=== PATIENT | male | born 1935 | race Caucasian/White ===

== ENCOUNTER 2018-07-08 14:27 | Inpatient (IN) | payer OTHER ==
[~2018-07-08] VITALS: Ht 170.2 cm; Wt 87.1 kg
[2018-07-08 15:13] LABS: ABSOLUTE BASOPHIL COUNT 0.1 /CUMM (0.0-0.2); ABSOLUTE EOSINOPHIL COUNT 0.1 /CUMM (0.0-0.7); ABSOLUTE GRANULOCYTE CT 7.9 /CUMM (1.4-6.5); ABSOLUTE LYMPH COUNT 1.1 /CUMM (1.2-3.4); ABSOLUTE MONOCYTE COUNT 0.5 /CUMM (0.10-0.60); BASOPHIL % 0.7 % (0.0-2.0); EOSINOPHIL % 1.3 % (0-5); GRANULOCYTE % 82.2 % (42.2-75.2); HEMATOCRIT 46.2 % (42-52); MEAN CORPUSCULAR HGB 32.8 PG (27.0-31.0); MEAN CORPUSCULAR HGB CONC 33.3 G/DL (33.0-37.0); MEAN CORPUSCULAR VOLUME 98.2 FL (80.0-94.0); PLATELET COUNT 261 /CUMM (130-400); RBC DISTRIBUTION WIDTH 15.3 % (11.5-14.5); WHITE BLOOD CELL COUNT 9.6 /CUMM (4.8-10.8)
[2018-07-08 15:26] LABS: PT 11.4 SEC (9.4-12.5)
--- NOTE | 2018-07-08 16:00 | RADIOLOGY REPORT ---
EXAMINATION: XR PORTABLE CHEST CLINICAL INFORMATION: Abdominal pain. COMPARISON: CT chest 12/15/2011. TECHNIQUE: Portable frontal view of the chest was obtained. FINDINGS: The lungs are well-expanded and clear of acute process. 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 Pulmonary vascularity is normal. No gross bony abnormality seen IMPRESSION: No acute pulmonary process seen. Mild cardiomegaly.
--- NOTE | 2018-07-08 16:08 | ED GENERAL ADULT ---
History of Present Illness General Chief Complaint: Abdominal Pain/Flank Pain Stated Complaint: SENT BY URGENT CARE FOR EVAL OF ABD PAIN Source: patient Exam Limitations: no limitations Vital Signs & Intake/Output Vital Signs & Intake/Output Vital Signs Date Time Temp Pulse Resp B/P B/P Pulse O2 O2 Flow FiO2 Mean Ox Delivery Rate 07/08 194 84 16 110/50 94 Room Air 07/08 1643 97.5 88 18 129/65 92 07/08 1507 Room Air Room Air 07/08 1445 98.4 95 18 102/60 93 Room Air Allergies Coded Allergies: NO KNOWN ALLERGIES (07/08/18) Triage Note: RECEIVED 82 YO MALE SENT FROM URGENT CARE FOR C/O NAUSEA, ABDOMINAL BLOATING AND EPIGASTRIC PAIN. XRAY DONE, SENT FOR BLOOD TESTS AND CT SCAN. NO C/O CP OR SOB. Triage Nurses Notes Reviewed? yes HPI: 82 year old male with history of diabetes mellitus and gout, presenting to the ED with abdominal pain approximately 1 week in duration. The abdominal pain is mid-epigastric and has been worsening, associated with a feeling of bloating, as well as nausea and dry-heaving that began this morning. Patient denied headache, cramping, diarrhea or other changes in bowel movements, but reported difficulty urinating. The patient went to urgent care, but as they could not perform an abdominal CT scan, he was sent to the ED. In the ED he was noted to be hyperkalemic to 5.9 with associated EKG changes and found to be in acute renal failure. (Win WELCH,Tejas) Reconcile Medications Allopurinol 300 MG TABLET 1 TAB PO DAILY URIC ACID (Reported) Aspirin (Ecotrin*) 81 MG TABLET.DR 1 TAB PO DAILY HEART/BLOOD (Reported) Dapagliflozin Propanediol (Farxiga) 5 MG TABLET 1 TAB PO DAILY DM (Reported) Ezetimibe/Simvastatin (Vytorin 10-20 MG Tablet) 10 MG-20 MG TABLET 1 TAB PO DAILY HEART/BP (Reported) Flecainide Acetate 100 MG TABLET 1 TAB PO BID HEART (Reported) Lisinopril 20 MG TABLET 1 TAB PO DAILY BP (Reported) Metoprolol Succinate 50 MG TAB.ER.24H 1 TAB PO DAILY HEART/BP (Reported) Sitagliptin Phos/Metformin HCl (Janumet 50-1,000 MG Tablet) 50 MG-1,000 MG TABLET 1 TAB PO BID DM (Reported) Onset: Abrupt Duration: day(s): Timing: recent history (Ranjit DELCID,Nehemias Eaton) Past History Travel History Traveled to [place] past 21 day No Medical History Any Pertinent Medical History? see below for history Neurological: NONE EENT: NONE Cardiovascular: hypertension, hyperlipidemia Respiratory: NONE Gastrointestinal: NONE Hepatic: NONE Renal: NONE Musculoskeletal: NONE Psychiatric: NONE Endocrine: diabetes Blood Disorders: NONE Cancer(s): NONE Surgical History Surgical History: none Psychosocial History Who do you live with Other (see notes) Services at Home None What is your primary language Welsh Tobacco Use: Never used Family History Hx Contributory? No (Win WELCH,Tejas) Review of Systems Review of Systems Constitutional: Denies: chills, diaphoresis, fever. Respiratory: Denies: cough, orthopnea, short of breath, sputum production. Cardiovascular: Denies: chest pain, palpitations, peripheral edema. GI: Reports: abdominal pain, bloating, distention, nausea. Denies: diarrhea, bowel incontinence, vomiting (Dry-heaving). Musculoskeletal: Denies: joint pain, joint swelling, muscle pain, muscle stiffness. Neurological/Psychological: Denies: headache, numbness, paresthesia. (Win WELCH,Tejas) Physical Exam Physical Exam General Appearance: well developed/nourished, no apparent distress, alert, awake Respiratory: normal breath sounds, chest non-tender, no respiratory distress Cardiovascular: regular rate/rhythm Gastrointestinal: normal bowel sounds, soft, distention, tenderness Extremities: normal inspection, normal range of motion, no edema Neurologic/Psych: awake, alert, oriented x 3 Core Measures ACS in differential dx? No CVA/TIA Diagnosis: No Sepsis Present: No Sepsis Focused Exam Completed? No (Tejas Walden MD) Progress Differential Diagnoses I considered the following diagnoses in my evaluation of the patient: [acute renal failure, decompensated alcoholic cirrhosis, pancreatitis, acute cholecystitis] Plan of Care: Orders Procedure Date/time Status Nothing by Mouth 07/09 B Active MAGNESIUM 07/09 06 Active CBC WITHOUT DIFFERENTIAL 07/09 06 Active BASIC ELECTROLYTES PLUS BUN&CR 07/09 06 Active FingerStick- Glucose 07/08 1803 Active US-LIMITED ABDOMEN 07/08 1748 Active Pathway - chart 07/08 174 Active House Staff 07/08 1746 Active Patient Data 07/08 174 Active Code Status 07/08 1746 Active LACTIC ACID 07/08 1742 Complete URINE LYTES, SPOT 07/08 1741 Active Patient Data 07/08 1732 Active Misc Message 07/08 1727 Active ED Holding Orders 07/08 1727 Active Admit to inpatient 07/08 1727 Active Vital Signs 07/08 1727 Active Code Status 07/08 1727 Complete BASIC ELECTROLYTES PLUS BUN&CR 07/08 1700 Complete EKG 07/08 1700 Active Add-on Test (ER Only) 07/08 1655 Active URINALYSIS 07/08 1629 Active Puente, Insertion/Removal/Asses 07/08 1545 Active CULTURE,URINE 07/08 154 Active Add-on Test (ER Only) 07/08 1511 Active Intake & Output 07/08 1507 Active PROTHROMBIN TIME 07/08 1505 Complete MAGNESIUM 07/08 1505 Complete AMYLASE 07/08 1505 Complete TROPONIN LEVEL 07/08 1442 Complete LIPASE 07/08 1442 Complete LACTIC ACID 07/08 1442 Complete COMPREHENSIVE METABOLIC PANEL 07/08 1442 Complete CBC WITHOUT DIFFERENTIAL 07/08 1442 Complete EKG 07/08 1442 Active VTE Mechanical Prophylaxis 07/08 UNK Active Telemetry/Patching Machine Operator 07/08 UNK Active Current Medications Sig/Renu Start time Last Medication Dose Stop Time Status Admin Sodium Bicarbonate 650 MG BID 07/08 2100 AC (Sodium Bicarb 325MG Tab) Heparin Sodium 5,000 UNIT Q8 07/08 1746 AC 07/08 (Porcine) 1906 Ondansetron HCl 0 .STK-MED ONE 07/08 1455 CAN (Zofran) Laboratory Tests 07/08/181929: Urine Color Pending, Urine Clarity Pending, Urine pH Pending, Ur Specific [place] Pending, Urine Protein Pending, Urine Ketones Pending, Urine Nitrite Pending, Urine Bilirubin Pending, Urine Urobilinogen Pending, Ur Leukocyte Esterase Pending, Ur Microscopic SEDIMENT EXAMINED, Urine RBC Pending, Urine Hemoglobin Pending, Urine Glucose Pending 07/08/18 1930: Ur Random Creatinine Pending, Ur Random Sodium Pending, Ur Random Potassium Pending, Fraction Sodium Excret Pending 07/08/18 175: Sodium Cancelled, Potassium Cancelled, Chloride Cancelled, Carbon Dioxide Cancelled, Anion Gap Cancelled, BUN Cancelled, Creatinine Cancelled, BUN/ Creatinine Ratio Cancelled 07/08/18 1758: Lactic Acid 2.5 H 07/08/18 1758: Anion Gap 13, Estimated GFR 14 L, BUN/Creatinine Ratio 15.9 07/08/18 1505: Anion Gap 17 H, Estimated GFR 12 L, BUN/Creatinine Ratio 14.3, Glucose 190 H, Lactic Acid 2.7 H, Calcium 10.2, Magnesium 2.2, Total Bilirubin 0.6, AST 26, ALT 20 L, Alkaline Phosphatase 87, Troponin I < 0.01, Total Protein 8.9 H, Albumin 5.3 H, Globulin 3.6, Albumin/Globulin Ratio 1.5, Amylase 109, Lipase 385 H, PT 11.4, INR 1.05, CBC w Diff NO MAN DIFF REQ, RBC 4.70, MCV 98.2 H, MCH 32.8 H, MCHC 33.3, RDW 15.3 H, MPV 8.0, Gran % 82.2 H, Lymphocytes % 11.0 L, Monocytes % 4.8, Eosinophils % 1.3, Basophils % 0.7, Absolute Granulocytes 7.9 H, Absolute Lymphocytes 1.1 L, Absolute Monocytes 0.5, Absolute Eosinophils 0.1, Absolute Basophils 0.1 Microbiology 07/08 1930 URINE ROUT: Urine Culture - RECD Diagnostic Imaging: Viewed by Me: Radiology Read. Discussed w/RAD: Radiology Read. Initial ED EKG: Peak T waves progressing to sine wave pattern (Win WELCH,Tejas) Differential Diagnoses I considered the following diagnoses in my evaluation of the patient: (Nehemias Church DO) Departure Departure Disposition: STILL A PATIENT Condition: Stable Clinical Impression Primary Impression: Acute renal failure (ARF) Qualifiers: Acute renal failure type: unspecified Qualified Code: N17.9 - Acute kidney failure, unspecified Secondary Impressions: Acute electrocardiogram changes, Hyperkalemia Referrals: Fredy WELCH,Kyree Decker (PCP/Family) Departure Forms: Customer Survey General Discharge Information Admission Note Spoke With: Roscoe Lara MD Documentation of Exam: Documentation of any treatments & extenuating circumstances including Concerns Regarding Discharge (functional status, medication knowledge or non-compliance, living conditions, etc.) that warrant an admission rather than observation: the patient was noted to have acute EKG changes upon arrival to the ED likely secondary to hyperkalemia, due to acute renal failure. I believe he will require a multiple-day hospital stay in order to appropriately correct his hyperkalemia, as well as address his underlying acute renal failure, and most likely will need cardiology and nephrology consultations as an inpatient. Due to the underlying renal failure, the patient would likely become hyperkalemic again if not treated as an inpatient, and risk worsening clinical condition and serious cardiac events including . (Win WELCH,Tejas) Admission Note Documentation of Exam: Documentation of any treatments & extenuating circumstances including Concerns Regarding Discharge (functional status, medication knowledge or non-compliance, living conditions, etc.) that warrant an admission rather than observation: Resident Co-Sign Statement Statement: ED Attending supervision documentation- [X] I saw and evaluated the patient. I have also reviewed all the pertinent lab results and diagnostic results. I agree with the findings and the plan of care as documented in the Resident's documentation. [] I have reviewed the ED Record and agree with the Resident's documentation. [] Additions or exceptions (if any) to the Resident's note and plan are summarized below: [] I saw and personally evaluated the patient and I agree with the resident's evaluation. The patient complained of abdominal pain he was in acute renal failure. He was hyperkalemic with EKG changes he was admitted to the telemetry unit for further care, his abdomen is soft was soft and nontender on my exam., (Ranjit DELCID,Nehemias Eaton) Critical Care Note Critical Care Note Critical Care Time: 30-74 min (Win WELCH,Tejas)
--- NOTE | 2018-07-08 17:38 | CT SCAN REPORT ---
EXAMINATION: CT ABD PELVIS W/O IV CONTRAS CLINICAL INFORMATION: Acute renal failure abdominal pain distention COMPARISON: None TECHNIQUE: Multidetector volumetric imaging was performed from the superior aspect of the liver through the pubic symphysis 100 mL of Omnipaque 300 injected Sagittal and coronal reformatted images were obtained on the technologist's workstation. DLP: 802 mGy-cm FINDINGS: LOWER THORAX: Included lung bases are clear. HEPATOBILIARY: There is mild intrahepatic biliary dilatation. There is a probably dilatation of the pancreatic duct. Although stone cannot be directly visualize by CT, there is a concern for possible stone or obstruction of the CBD. GALLBLADDER: Gallbladder is very distended. SPLEEN: Spleen is normal in size. PANCREAS: No focal mass or ductal dilatation. STOMACH AND GASTROINTESTINAL TRACT: Stomach is grossly unremarkable. There is diverticulosis of the sigmoid colon without evidence of acute diverticulitis. No CT evidence of appendicitis. ADRENALS: No adrenal nodules. KIDNEYS/URETERS: There is a 3.8 cm simple cyst middle pole LEFT kidney. There is 1.9 cm simple cyst lower pole LEFT kidney. There is 1.6 cm cyst middle pole LEFT kidney. There is no hydronephrosis. There is nonspecific mild bilateral perinephric fat stranding. There is 1.6 cm cyst middle pole RIGHT kidney. URINARY BLADDER: Partially decompressed. PELVIC VISCERA: Unremarkable PERITONEUM: No free air or fluid. LYMPH NODES: No lymphadenopathy. VASCULAR:Abdominal aorta normal in size, no aneurysm found. BONES, ABDOMINAL WALL AND SOFT TISSUES: Left inguinal hernia containing fats. Small anterior abdominal wall hernia containing fat. Mild grade 1 anterior listhesis of L5 on S1 and posterior listhesis of L3 on L4. IMPRESSION: 1. Intrauterine extrahepatic biliary dilatation, distended gallbladder, although stones cannot be seen by CT scan, cannot rule out stones or obstructing mass within the CBD or head of the pancreas. Further investigation utilizing ultrasound and/or MRI MRCP is recommended. 2. Diverticulosis without evidence of diverticulitis. 3. Bilateral renal cysts. Nonspecific mild bilateral perinephric fat stranding's. Other noncritical findings as above.
--- NOTE | 2018-07-08 17:45 | History & Physical ---
Vikram WELCH,Nicol 07/08/18 4577: General Information and HPI MD Statement: I have seen and personally examined ОЛЬГАARSENIO Meyer and documented this H&P. The patient is a 82 year old M who presented with a patient stated chief complaint of [hyperkalemia, EKG changes]. Source of Information: patient, family, old records Exam Limitations: no limitations History of Present Illness: Patient is an 82-year-old male presented with a chief complaints of abdominal pain, sent by the urgent care for evaluation. History is taken from the patient. According to him since last 3 or 4 weeks he is having lower abdominal pain and difficulty in urinating. He takes time and have to strain for urination. He denies for any change in the color or smell of the urine. He was also having abdominal pain located in periumbilical area, intermittent in nature does sometimes radiate to the back. Denies for any fever , chills, diarrhea, constipation, trauma, chest pain, difficulty in the breathing. He also started having nausea since last 3-4 days but denies vomiting. His appetite has been decreased. He did not tried any medication. Because of the nausea he thought that he needed to talk to somebody. He went to urgent care for evaluation. Abdomen x-ray was done which was negative so he was told to come to the [facility] ED for further evaluation and management. Of note he had a blood workup in April which was normal. he had episodes of fall, due to imbalance but didnt injured himself. He is also following Dr. Flores, regularly but he donot know why. He already had echocardiogram and according to him it was normal. He was also complaining of pain in the left side of the neck since couple of months. Past medical history- History of SVT 2007, converted to normal sinus rhythm of diagnosing following Dr. Jaime Right bundle branch block Hypertension Hyperlipidemia Type 2 diabetes GERD History of polyps History of diverticulosis History of GI bleed Allergies-denies for any allergies Family history-his mother had gallbladder cancer Surgery-noncontributory Allergies/Medications Allergies: Coded Allergies: NO KNOWN ALLERGIES (07/08/18) Home Med list Allopurinol 300 MG TABLET 1 TAB PO DAILY URIC ACID (Reported) Aspirin (Ecotrin*) 81 MG TABLET. 1 TAB PO DAILY HEART/BLOOD (Reported) Dapagliflozin Propanediol (Farxiga) 5 MG TABLET 1 TAB PO DAILY DM (Reported) Ezetimibe/Simvastatin (Vytorin 10-20 MG Tablet) 10 MG-20 MG TABLET 1 TAB PO DAILY HEART/BP (Reported) Flecainide Acetate 100 MG TABLET 1 TAB PO BID HEART (Reported) Lisinopril 20 MG TABLET 1 TAB PO DAILY BP (Reported) Metoprolol Succinate 50 MG TAB.ER.24H 1 TAB PO DAILY HEART/BP (Reported) Sitagliptin Phos/Metformin HCl (Janumet 50-1,000 MG Tablet) 50 MG-1,000 MG TABLET 1 TAB PO BID DM (Reported) Past History Travel History Traveled to [place] past 21 day No Medical History Neurological: NONE EENT: NONE Cardiovascular: hypertension, hyperlipidemia Respiratory: NONE Gastrointestinal: NONE Hepatic: NONE Renal: NONE Musculoskeletal: NONE Psychiatric: NONE Endocrine: diabetes Blood Disorders: NONE Cancer(s): NONE Surgical History Surgical History: none Past Family/Social History Psychosocial History Services at Home: None Review of Systems Review of Systems Constitutional: Reports: weakness. GI: Reports: abdominal pain, nausea. Genitourinary: Reports: hesitation. Exam & Diagnostic Data Last 24 Hrs of Vital Signs/I&O Vital Signs Date Time Temp Pulse Resp B/P B/P Pulse O2 O2 Flow FiO2 Mean Ox Delivery Rate 07/08 1643 97.5 88 18 129/65 92 07/08 1507 Room Air Room Air 07/08 1445 98.4 95 18 102/60 93 Room Air Intake & Output 07/08 1600 07/08 0800 07/08 0000 Intake Total 0 Output Total Balance 0 Intake, Oral 0 Patient 83.461 kg Weight Weight Estimated Measurement Method Physical Exam General Appearance Alert, Oriented X3, Cooperative, No Acute Distress Skin No Rashes, No Breakdown, No Significant Lesion Neck No JVD Cardiovascular Normal S1, Normal S2 Lungs Clear to Auscultation, Normal Air Movement Abdomen Soft, distended, tenderness in right upper quadrant, middle of abdoman, gall bladder is palpable, also have left upper quadrate mass, Neurological Normal Speech Extremities No Clubbing, No Cyanosis, No Edema Vascular Normal Pulses, Pulses Symmetrical Last 24 Hrs of Labs/Jakob: Laboratory Tests 07/08/18 1505: Anion Gap 17 H, Estimated GFR 12 L, BUN/Creatinine Ratio 14.3, Glucose 190 H, Lactic Acid 2.7 H, Calcium 10.2, Magnesium 2.2, Total Bilirubin 0.6, AST 26, ALT 20 L, Alkaline Phosphatase 87, Troponin I < 0.01, Total Protein 8.9 H, Albumin 5.3 H, Globulin 3.6, Albumin/Globulin Ratio 1.5, Amylase 109, Lipase 385 H, PT 11.4, INR 1.05, CBC w Diff NO MAN DIFF REQ, RBC 4.70, MCV 98.2 H, MCH 32.8 H, MCHC 33.3, RDW 15.3 H, MPV 8.0, Gran % 82.2 H, Lymphocytes % 11.0 L, Monocytes % 4.8, Eosinophils % 1.3, Basophils % 0.7, Absolute Granulocytes 7.9 H, Absolute Lymphocytes 1.1 L, Absolute Monocytes 0.5, Absolute Eosinophils 0.1, Absolute Basophils 0.1 Microbiology 07/08 1545 URINE ROUT: Urine Culture - ORD Diagnostic Data EKG Results Junctional rhythum, old IWMI CXR Results No acute pulmonary process seen. Mild cardiomegaly. Assessment/Plan Assessment: Patient is an 82-year-old male presented with a chief complaints of abdominal pain, sent by the urgent care for evaluation. Vital signs at the time of admission-temperature 98.4, pulse 95, respiratory 18, blood pressure 102/60, SPO2 93% on room air. Blood workup showed-hemoglobin 15.4, hematocrit 46.2, MCV 98.2, platelet count 261, granulocyte 82.2, absolute granulocyte 7.9, serum sodium 138, potassium 5.9 , carbon dioxide 12, anion gap 17, BUN 66, creatinine 4.6, GFR 12, glucose 190, lactic acid 2.7, calcium 10.2, magnesium 2.2, AST 26, ALT 20, alkaline phosphatase 87, troponin less than 0.01, albumin 5.3, globulin 3.6, lipase 385, PT/INR-11.4/1.04 Chest x-ray-no acute pulmonary process, mild cardiomegaly. CT abdomen pelvis- 1. Intrauterine extrahepatic biliary dilatation, distended gallbladder, although stones cannot be seen by CT scan, cannot rule out stones or obstructing mass within the CBD or head of the pancreas. 2. Diverticulosis without evidence of diverticulitis. 3. Bilateral renal cysts. Nonspecific mild bilateral perinephric fat stranding' s. Assessment and plan- Hyperkalemia,High anion gap metabolic acidosis secondary to EVELYN on CKD ; with BPH; diabetic nephropathy - * Started patient on tablet soda bicarb 650 mg twice daily * IV fluid D5 half normal saline at 50 cc/h * Regular monitoring of BEP * Low potassium diet * Coronel catheterization * Strick intake output charting * Daily weight measurement * We need to get the records from the primary care provider Dr. Marrufo to know the baseline creatinine. * Follow nephrology recommendation * Follow urology recommendation Idioventricular rhythm on EKG possibly flecainide toxicity -because of EVELYN * Discussed with Dr. Plata she thinks that we should stop the flecainide for now. * We will continue tablet metoprolol 50 mg daily * Follow cardiology recommendation * EKG tomorrow morning * His primary advanced manufacturing technician is Dr. Flores please place a consult on Tuesday Intra-and extrahepatic biliary dilatation-gallbladder stone has to be ruled out- He has palpable gallbladder, with the family history of gallbladder cancer in his mother, there was a palpable mass and left supraclavicular area which was hard and fixed. * Advised right upper quadrant ultrasound and if needed then MRCP * Follow GI recommendation * Injection metoclopramide if needed for nausea * Injection pantoprazole 40 mg IV OD Type 2 diabetes - * Blood sugar charting every 6 hourly * NovoLog according to the sliding scale History of fall, unstablility -on examination there is no neurological deficit * We will check vitamin B12 level Chronic medical condition-hypertension, hyperlipidemia, gout * We will hold the lisinopril for now and continue metoprolol. * We will hold allopurinol for now until kidney function improved CODE STATUS-DNR/DNI Diet-consistent carbohydrate to diet, keep n.p.o. from tomorrow morning for right upper quadrant ultrasound and if needed then MRCP. DVT prophylaxis-ALPs/heparin Please get the records from the PCP Dr. MARRUFO and have baseline creatinine. As Ranked By This Provider Problem List: 1. Hyperkalemia 2. Acute renal failure (ARF) Qualifiers Acute renal failure type: unspecified Qualified Code: N17.9 - Acute kidney failure, unspecified 3. Acute electrocardiogram changes 4. Metabolic acidosis 5. Type 2 diabetes mellitus Core Measures/Misc (07/31) Acute Coronary Syndrome ACS Diagnosis: No Congestive Heart Failure Congestive Heart Failure Diagnosis No Cerebrovascular Accident CVA/TIA Diagnosis: No VTE (View Protocol) VTE Risk Factors Age>40 No Mechanical VTE Prophylaxis d/t N/A MechProphylax Ordered No VTE Pharm Prophylaxis d/t NA PharmProphylax ordered Sepsis (View protocol) Sepsis Present: No If YES complete Sepsis Event Note If YES complete Sepsis Event Note Roscoe Lara MD 07/09/18 0639: Core Measures/Misc (07/31) Sepsis (View protocol) If YES complete Sepsis Event Note If YES complete Sepsis Event Note Attending MD Review Statement Attending Statement Attending MD Statement: examined this patient, discuss w/resident/PA/AIRCRAFT ENGINE SPECIALIST, agreed w/resident/PA/AIRCRAFT ENGINE SPECIALIST, discussed with family, reviewed EMR data (avail), discussed with nursing, reviewed images, amended to note Attending Assessment/Plan: The patient is an 82 yo male with h/o HTN, PSVT, HL, DM2, GERD, h/o GI bleed, CKD 3 (per Dr. Daniel OP chart) who was brought to ED on the day of admission after a fall at home. The patient stated he lost his balance and fell (no syncope, chest pain, palpitations, etc.). He had complained of mid epigastric abdominal pain x 1 week prior to admission with nausea and dry heaves that was getting worse. In the ED was noted to have renal failure (Cr 4.1) and hyperkalemia (K 5.9) and have a junctional rhythm on EKG. His prior Cr here was normal, however Dr. Daniel OP chart (newly created in [place]) indicates CKD 3 as a problem (he has not been seen since conversion to [facility] and no prior OP Cr in our system- suspect may be at [facility]). CT of abdomen showed intrahepatic and extrahepatic biliary duct dilatation, probable dilatation of the pancreatic duct, and distended GB (no stones) and MRCP was recommended. His Lipase was 385 with normal LFTs. He is followed by Dr. Carroll as OP for cardiology. Physical Exam: VS: T 97.5, P 88, R 18, BP 102/60-129/65, PO 92-93% RA HEENT: eyes- PERRLA, EOMI que- dry mucosa Neck: no JVD/bruits; + left supraclavicular node Chest: sl diminished breath sounds at bases, clear Cor: RRR nl S1, S2 w/o murm Abd: BS+, soft, + RUQ and epigastric tenderness w/o guarding/rebound Ext: no significant edema, pulses 2+ Neuro: alert, non-focal exam Labs/Tests- as above Impression/Plan: #Hyperkalemia- due to EVELYN/CKD. Plan: Glucose/insulin given in ED. Admit to telemetry and monitor. Follow BEP closely. #EVELYN/CKD- last prior Cr not known, however Dr. Daniel chart lists CKD3 as diagnosis (will need to check [facility]). His po intake has been poor with nausea/dry heaves, etc. Coronel was placed in ED with large amount of clear urine. Suspect BPH/urinary retention (obstructive uropathy) as partial cause. Metabolic acidosis noted. Plan: Nephrology/Urology consults. Renal diet. IV 1/2 NS and bicarb tabs. Follow I/O's and BEP closely. Obtain prior OP labs (?[facility]). Maintain coronel at present for follow I/O's. #Idioventricular Rhythm- noted on EKG. H/O PSVT per OP chart. Previously seen by Dr. Carroll. Plan: Monitor on telemetry. Cardiology consult. Continue Metoprolol. #Abdominal Pain- dilated pancreatic/intrahepatic/extrahepatic biliary system. Lipase mildly elevated with normal LFT's. MRCP recommended, however MRI not available until 07/10. FH of GB malignancy. Also with nausea/dry heaves. Plan: As cannot obtain MRCP will check abdominal US. GI consult. Follow-up LFT's/abdominal exam. Metoclopramide for nausea/Pantoprazole IV. #DM2- sugars as above. Plan: Follow glucoscans and sliding scale insulin. #S/P Fall- ?mechanical fall. Most likely secondary to volume depletion/etc. Plan: Will monitor on telemetry. PT/OT consults once stable. Agree with check B12/Vit D. #HL- on Atorvastatin. Plan: Hold while having nausea, etc. #Essential HTN- on Metoprolol/Lisinopril. Plan: Continue Metoprolol. Hold Lisinopril with renal failure at present. #h/o Gout- on allopurinol. Plan: Hold allopurinol. DNR/DNI as per patient wishes.
[2018-07-08] MEDS ORDERED: VYTORIN 10-201 EACH PO (18:17)
[2018-07-08] MEDS ORDERED: FARXIGA5 M1 PO (18:18)
[2018-07-08] MEDS ORDERED: LISINOPRIL20 M1 PO (18:18)
[2018-07-08] MEDS ORDERED: FLECAINIDE ACE100 M1 PO (18:18)
[2018-07-08] MEDS ORDERED: JANUMET 50-1,01 EACH PO (18:18)
[2018-07-08] MEDS ORDERED: ALLOPURINOL300 M1 PO (18:18)
[2018-07-08] MEDS ORDERED: ASPIRIN EC81 M1 PO (18:19)
[2018-07-08] MEDS ORDERED: METOPROLOL SUCC50 M2 PO (18:19)
[2018-07-08 21:43] VITALS: BP 142/60
[2018-07-09 06:33] VITALS: BP 118/57
--- NOTE | 2018-07-09 07:07 | Admission Certification ---
Admission Certification Certification Statement - As attending physician, I certify that at the time of - admission, based on clinical presentation, severity of - symptoms, need for further diagnostic testing and - therapeutic interventions, and risk of adverse outcomes - without in-hospital treatment, in my clinical assessment, - this patient requires an acute hospital stay for a minimum - of two nights or longer. I have also considered psychsocial - factors such as support system, advanced age, financial - issues, cognitive issues, and failed out-patient treatments, - past re-admission history, safety of patient, and lack of - compliance as applicable. Specific rationale supporting this admission is: The patient presents after mechanical fall with hyperkalemia EVELYN/CKD, idioventricular rhythm on EKG, CT abd showing biliary and pancreatic duct dilatation, elevated lipase (?pancreatitis). Needs admission to telemetry to treat hyperkalemia, nephrology and urology consults, coronel, I/O's, GI evaluation , abd US (?MRCP when able). Close follow of renal function.
[2018-07-09 08:09] LABS: ABSOLUTE BASOPHIL COUNT 0 /CUMM (0.0-0.2); ABSOLUTE EOSINOPHIL COUNT 0.2 /CUMM (0.0-0.7); ABSOLUTE GRANULOCYTE CT 6.1 /CUMM (1.4-6.5); ABSOLUTE LYMPH COUNT 1.1 /CUMM (1.2-3.4); ABSOLUTE MONOCYTE COUNT 0.6 /CUMM (0.10-0.60); BASOPHIL % 0.5 % (0.0-2.0); EOSINOPHIL % 1.9 % (0-5); GRANULOCYTE % 75.9 % (42.2-75.2); HEMATOCRIT 42.4 % (42-52); MEAN CORPUSCULAR HGB 32.9 PG (27.0-31.0); MEAN CORPUSCULAR HGB CONC 33.4 G/DL (33.0-37.0); MEAN CORPUSCULAR VOLUME 98.7 FL (80.0-94.0); MEAN PLATELET VOLUME 8.4 FL (7.4-10.4); PLATELET COUNT 206 /CUMM (130-400); WHITE BLOOD CELL COUNT 8.1 /CUMM (4.8-10.8)
--- NOTE | 2018-07-09 09:08 | PN- Housestaff ---
Vikram WELCH,Nicol 07/09/18 0908: Subjective Follow-up For: Acute kidney injury secondary to dehydration because of the Farxiga/Digliflozin Complaints: no complaints Tele-Events Since Last Visit: No new overnight event, EKG showing first-degree heart block with heart rate of 70. Review of Systems Constitutional: Denies: no symptoms. Objective Last 24 Hrs of Vital Signs/I&O Vital Signs Date Time Temp Pulse Resp B/P B/P Pulse O2 O2 Flow FiO2 Mean Ox Delivery Rate 07/09 0633 98.1 76 20 118/57 96 Room Air 07/08 2231 85 142/60 07/08 2143 97.8 85 18 142/60 94 Room Air 07/08 1947 84 16 110/50 94 Room Air 07/08 1643 97.5 88 18 129/65 92 07/08 1507 Room Air Room Air 07/08 1445 98.4 95 18 102/60 93 Room Air Intake & Output 07/09 1600 07/09 0800 07/09 0000 Intake Total 400 120 Output Total 350 600 Balance 50 -480 Intake, IV 400 Intake, Oral 120 Output, Urine 350 600 Patient 85.531 kg Weight Weight Bed scale Measurement Method Physical Exam General Appearance: Alert, Oriented X3, Cooperative, No Acute Distress Cardiovascular: Normal S1, Normal S2 Lungs: Clear to Auscultation, Normal Air Movement Abdomen: Soft, No Tenderness, right upper quadrant gall bladder is palpable Neurological: Normal Speech Extremities: No Clubbing, No Cyanosis, No Edema Current Medications: Current Medications Sig/Renu Start time Last Medication Dose Route Stop Time Status Admin Aspirin 0 .STK-MED ONE 07/08 2221 DC PO Aspirin Buffered 81 MG DAILY 07/08 2024 AC PO Calcium Gluconate 0 .STK-MED ONE 07/08 1623 DC IV Calcium Gluconate 0 .STK-MED ONE 07/08 1618 DC IV Calcium Gluconate 1 GM ONCE ONE 07/08 1615 DC 07/08 Sodium Chloride 100 ML IV 07/08 1714 1642 Dextrose 0 .STK-MED ONE 07/08 1617 DC IV Dextrose 25 GM ONCE ONE 07/08 1600 DC 07/08 IV 07/08 1601 1642 Dextrose/Sodium 1,000 ML Q20H 07/08 2100 AC 07/08 Chloride IV 2216 Flecainide Acetate 100 MG BID 07/08 2100 CAN PO Heparin Sodium 0 .STK-MED ONE 07/08 1903 DC (Porcine) .ROUTE Heparin Sodium 5,000 UNIT Q8 07/08 1746 AC 07/09 (Porcine) SC 0519 Insulin Human Regular 0 Q6 07/08 2359 AC 07/09 SC 0519 Insulin Human Regular 10 UNITS ONCE ONE 07/08 1600 DC 07/08 IV 07/08 1601 1642 Metoclopramide HCl 5 MG Q12P PRN 07/08 2115 AC IV Metoprolol Succinate 50 MG DAILY 07/08 2023 AC PO Ondansetron HCl 0 .STK-MED ONE 07/08 1455 CAN .ROUTE Ondansetron HCl 4 MG ONCE ONE 07/08 1445 DC 07/08 IV 07/08 1446 1508 Pantoprazole Sodium 40 MG DAILY 07/09 0900 AC 07/09 IV 0815 Sodium Bicarbonate 650 MG BID 07/08 2100 AC 07/08 PO 2216 Sodium Bicarbonate 0 .STK-MED ONE 07/08 1549 DC IV Sodium Bicarbonate 50 MEQ ONCE ONE 07/08 1545 DC 07/08 IV 07/08 1546 1605 Sodium Chloride 1,000 ML Q20H 07/08 2030 DC IV Sodium Chloride 1,000 ML BOLUS ONE 07/08 1545 DC 07/08 IV 07/08 1744 1605 Last 24 Hrs of Lab/Jakob Results Last 24 Hrs of Labs/Mics: Laboratory Tests 07/09/18 0655: Anion Gap 8, Estimated GFR 20 L, BUN/Creatinine Ratio 20.3, Magnesium 2.2, CBC w Diff NO MAN DIFF REQ, RBC 4.30 L, MCV 98.7 H, MCH 32.9 H, MCHC 33.4, RDW 15.0 H, MPV 8.4, Gran % 75.9 H, Lymphocytes % 13.8 L, Monocytes % 7.9, Eosinophils % 1.9, Basophils % 0.5, Absolute Granulocytes 6.1, Absolute Lymphocytes 1.1 L, Absolute Monocytes 0.6, Absolute Eosinophils 0.2, Absolute Basophils 0 07/08/18 1930: Urine Color YEL, Urine Clarity CLEAR, Urine pH 6.0, Ur Specific [place] 1.025, Urine Protein NEG, Urine Ketones NEG, Urine Nitrite NEG, Urine Bilirubin NEG, Urine Urobilinogen 0.2, Ur Leukocyte Esterase NEG, Ur Microscopic SEDIMENT EXAMINED, Urine RBC 1-3, Ur Epithelial Cells RARE, Urine Bacteria FEW H, Urine Hemoglobin MOD H, Urine Glucose >=1000 H 07/08/181929: Ur Random Creatinine 79.9, Ur Random Sodium 51, Ur Random Potassium 17.0, Fraction Sodium Excret 1.9 H 07/08/181758: Sodium Cancelled, Potassium Cancelled, Chloride Cancelled, Carbon Dioxide Cancelled, Anion Gap Cancelled, BUN Cancelled, Creatinine Cancelled, BUN/ Creatinine Ratio Cancelled 07/08/181757: Lactic Acid 2.5 H 07/08/181757: Anion Gap 13, Estimated GFR 14 L, BUN/Creatinine Ratio 15.9 07/08/18 150: Anion Gap 17 H, Estimated GFR 12 L, BUN/Creatinine Ratio 14.3, Glucose 190 H, Lactic Acid 2.7 H, Calcium 10.2, Magnesium 2.2, Total Bilirubin 0.6, AST 26, ALT 20 L, Alkaline Phosphatase 87, Troponin I < 0.01, Total Protein 8.9 H, Albumin 5.3 H, Globulin 3.6, Albumin/Globulin Ratio 1.5, Amylase 109, Lipase 385 H, Vitamin B12 252, PT 11.4, INR 1.05, CBC w Diff NO MAN DIFF REQ, RBC 4.70 , MCV 98.2 H, MCH 32.8 H, MCHC 33.3, RDW 15.3 H, MPV 8.0, Gran % 82.2 H, Lymphocytes % 11.0 L, Monocytes % 4.8, Eosinophils % 1.3, Basophils % 0.7, Absolute Granulocytes 7.9 H, Absolute Lymphocytes 1.1 L, Absolute Monocytes 0.5, Absolute Eosinophils 0.1, Absolute Basophils 0.1 Microbiology 07/08 1930 URINE ROUT: Urine Culture - RES Assessment/Plan Assessment: Patient is an 82-year-old male presented with a chief complaints of abdominal pain, sent by the urgent care for evaluation. Past medical history- History of SVT 2007, converted to normal sinus rhythm of diagnosing following Dr. Jaime; currently on flecainide and metoprolol Right bundle branch block Hypertension Hyperlipidemia Type 2 diabetes GERD History of polyps History of diverticulosis History of GI bleed Vital signs-temperature 98.1, pulse 76, respiratory 20, blood pressure 118/57, SPO2 96% on room air. Blood workup showed-hemoglobin 14.1, hematocrit 42.4, MCV 98.7, platelet count 206, granulocyte 75.9, serum sodium 139, potassium 5.5, chloride 116, carbon dioxide 15, BUN 61, creatinine 2.0, GFR 20, magnesium 2.2, Problem list - Acute kidney injury secondary to use of Farxiga/Digliflogin; with baseline history of diabetic nephropathy, BPH, aggravated by dehydration leading to increase the toxicity of flecainide. Assessment and plan - * We will continue tablet sodium bicarb 650 mg twice daily * Regular monitoring of the BEP * Follow nephrology recommendation * Upper abdominal ultrasound did not show any evidence of CBD stone/gallbladder stone * We will start patient on consistent carbohydrate diet 2. * NovoLog according to the sliding scale 3 times daily/edges * We will follow GI recommendation in regards to distended gallbladder with a baseline history of gallbladder cancer in the family/mother and on examination is palpable but CT evidence of intra-and extrahepatic biliary dilatation. * He started having hematuria will follow urology recommendation regarding BPH. * Will follow cardiology recommendations regarding restarting flecainide. Please call Dr. Flores group tomorrow for further evaluation and management. CODE STATUS-DNR/DNI Diet-consistent carbohydrate diet DVT prophylaxis-ALPS/heparin Problem List: 1. Type 2 diabetes mellitus 2. Metabolic acidosis 3. Hyperkalemia 4. Acute renal failure (ARF) Pain Ratin Pain Location: n/a Pain Goal: Remain pain free Pain Plan: n/a Tomorrow's Labs & Rationales: follow up CBC,BEP, Mag DVT/Prophylaxis: mechanical, pharmacological Roscoe Lara MD 07/09/18 1301: Attending MD Review Statement Attending Statement Attending MD Statement: examined this patient, discuss w/resident/PA/BACTERIOLOGIST PHARMACEUTICAL, agreed w/resident/PA/BACTERIOLOGIST PHARMACEUTICAL, reviewed EMR data (avail), discussed with nursing, reviewed images, amended to note Attending Assessment/Plan: The patient was seen and discussed with house staff. Appreciate Nephrology input. Cr improving. As suggested the patient was volume depleted on admission. Unclear of baseline Creatinine (will check with Dr. Daniel office tomorrow). Still some abdominal pain- US results noted. K still 5.5. Await cardiology and GI input.
--- NOTE | 2018-07-09 09:29 | ULTRASOUND REPORT ---
EXAMINATION: US ABDOMEN LIMITED CLINICAL INFORMATION: Abdominal pain. COMPARISON: None TECHNIQUE: Real-time imaging of the right upper quadrant abdominal viscera. FINDINGS: PANCREAS: The pancreas is not well visualized.. LIVER: The liver is enlarged with normal contour but increased echogenicity. There is dilated intrahepatic ducts. No focal lesion seen. Echogenicity. No focal lesion or intrahepatic biliary duct dilatation. GALLBLADDER: The gallbladder is very distended but no echogenic stones or wall thickening or polyp seen. There is no pericholecystic fluid collection. COMMON BILE DUCT: Normal in caliber measuring 1.714 cm in diameter. RIGHT KIDNEY: There is a anechoic cysts lower pole right kidney measuring 1.1 x 0.7 x 0.8 cm. No hydronephrosis. No renal calculi or focal parenchymal lesions. The kidney measures 12.0 cm in maximum dimension. FREE FLUID: None. IMPRESSION: Enlarged echogenic liver likely hepatic steatosis. No focal liver lesion seen. Distended gallbladder but no echogenic stones. Small cyst lower pole right kidney.
--- NOTE | 2018-07-09 12:02 | Cons- Nephrology ---
General Information and HPI Consulting Request Date of Consult: 07/09/18 Requested By: Roscoe Lara MD Reason for Consult: EVELYN History of Present Illness: 82 yo male with histoyr of DM, hypertension, perhaps some ckd with baseline serum creatinine around 1.2 Never had dipstick proteinuria. He went to walk-in complainng of some abdomial pain and nausea. He also was apparently having some difficulty with urination although he now states this was not severe. He denies vomiting, diarrhea, NSAIDs. At walk-in he was found to have a creatinie of over 4 so he was referred to ED. He denies any recent changes in medications and does not check his home blood sugars or pressure. No dizzy episodes, SOB. Allergies/Medications Allergies: Coded Allergies: NO KNOWN ALLERGIES (07/08/18) Home Med List: Allopurinol 300 MG TABLET 1 TAB PO DAILY URIC ACID (Reported) Aspirin (Ecotrin*) 81 MG TABLET.DR 1 TAB PO DAILY HEART/BLOOD (Reported) Dapagliflozin Propanediol (Farxiga) 5 MG TABLET 1 TAB PO DAILY DM (Reported) Ezetimibe/Simvastatin (Vytorin 10-20 MG Tablet) 10 MG-20 MG TABLET 1 TAB PO DAILY HEART/BP (Reported) Flecainide Acetate 100 MG TABLET 1 TAB PO BID HEART (Reported) Lisinopril 20 MG TABLET 1 TAB PO DAILY BP (Reported) Metoprolol Succinate 50 MG TAB.ER.24H 1 TAB PO DAILY HEART/BP (Reported) Sitagliptin Phos/Metformin HCl (Janumet 50-1,000 MG Tablet) 50 MG-1,000 MG TABLET 1 TAB PO BID DM (Reported) Review of Systems Review of Systems: Negative except as noted above. Past History Travel History Traveled to [place] past 21 day No Medical History Neurological: NONE EENT: NONE Cardiovascular: NONE (SVT), hypertension, hyperlipidemia Respiratory: NONE Gastrointestinal: NONE Hepatic: NONE Renal: NONE Musculoskeletal: NONE Psychiatric: NONE Endocrine: diabetes Blood Disorders: NONE Cancer(s): NONE Surgical History Surgical History: 1 Psychosocial History Services at Home: None Smoking Status: Never Smoked Exam & Diagnostic Data Vital Signs and I&O Vital Signs Date Time Temp Pulse Resp B/P B/P Pulse O2 O2 Flow FiO2 Mean Ox Delivery Rate 07/09 0633 98.1 76 20 118/57 96 Room Air 07/08 2231 85 142/60 07/08 2143 97.8 85 18 142/60 94 Room Air 07/08 1947 84 16 110/50 94 Room Air 07/08 1643 97.5 88 18 129/65 92 07/08 1507 Room Air Room Air 07/08 1445 98.4 95 18 102/60 93 Room Air Intake & Output 07/09 0400 07/08 1600 07/08 0400 07/07 1600 07/07 0400 Intake Total 400 120 0 Output Total 350 600 Balance 50 -480 0 Intake, IV 400 Intake, Oral 120 0 Output, Urine 350 600 Patient 189 lb 184 lb Weight Weight Bed scale Estimated Measurement Method Physical Exam: NAD VS as above. Eyes: anicteric, PERRLA Neck: no mass or thyromegally Nodes: negative cervical/inguinla Skin: no rash or induration. CV: no rub or murmur Lungs: clear P&A Abd: non-tender, no organomegaly, BS positive Exts: no edema, decreased pedal pulses Neuro: A&O, CN intact, no asterixis. Results Pertinent Lab Results: Laboratory Tests 07/09 07/08 0655 1930 Chemistry Sodium (137 - 145 mmol/L) 139 Potassium (3.5 - 5.1 mmol/L) 5.5 H Chloride (98 - 107 mmol/L) 116 H Carbon Dioxide (22 - 30 mmol/L) 15 L Anion Gap (5 - 16) 8 BUN (9 - 20 mg/dL) 61 H Creatinine (0.7 - 1.2 mg/dL) 3.0 H Estimated GFR (>60 ml/min) 20 L BUN/Creatinine Ratio (7 - 25 %) 20.3 Magnesium (1.6 - 2.3 mg/dL) 2.2 Hematology CBC w Diff NO MAN DIFF REQ WBC (4.8 - 10.8 /CUMM) 8.1 RBC (4.70 - 6.10 /CUMM) 4.30 L Hgb (14.0 - 18.0 G/DL) 14.1 Hct (42 - 52 %) 42.4 MCV (80.0 - 94.0 FL) 98.7 H MCH (27.0 - 31.0 PG) 32.9 H MCHC (33.0 - 37.0 G/DL) 33.4 RDW (11.5 - 14.5 %) 15.0 H Plt Count (130 - 400 /CUMM) 206 MPV (7.4 - 10.4 FL) 8.4 Gran % (42.2 - 75.2 %) 75.9 H Lymphocytes % (20.5 - 51.1 %) 13.8 L Monocytes % (1.7 - 9.3 %) 7.9 Eosinophils % (0 - 5 %) 1.9 Basophils % (0.0 - 2.0 %) 0.5 Absolute Granulocytes (1.4 - 6.5 /CUMM) 6.1 Absolute Lymphocytes (1.2 - 3.4 /CUMM) 1.1 L Absolute Monocytes (0.10 - 0.60 /CUMM) 0.6 Absolute Eosinophils (0.0 - 0.7 /CUMM) 0.2 Absolute Basophils (0.0 - 0.2 /CUMM) 0 Urines Urine Color (YEL,AMB,STR) YEL Urine Clarity (CLEAR) CLEAR Urine pH (5.0 - 8.0) 6.0 Ur Specific [place] (1.001 - 1.035) 1.025 Urine Protein (NEG,<30 MG/DL) NEG Urine Ketones (NEG) NEG Urine Nitrite (NEG) NEG Urine Bilirubin (NEG) NEG Urine Urobilinogen (0.1 - 1.0 EU/dl) 0.2 Ur Leukocyte Esterase (NEG) NEG Ur Microscopic SEDIMENT EXAMINED Urine RBC (0 - 5 /HPF) 1-3 Ur Epithelial Cells (NONE,FEW) RARE Urine Bacteria (NEG/NONE) FEW H Urine Hemoglobin (NEG) MOD H Urine Glucose (N MG/DL) >=1000 H 07/08 07/08 07/08 07/08 1930 1759 1758 1758 Chemistry Sodium (137 - 145 mmol/L) Cancelled 138 Potassium (3.5 - 5.1 mmol/L) Cancelled 5.5 H Chloride (98 - 107 mmol/L) Cancelled 110 H Carbon Dioxide (22 - 30 mmol/L) Cancelled 15 L Anion Gap (5 - 16) Cancelled 13 BUN (9 - 20 mg/dL) Cancelled 65 H Creatinine (0.7 - 1.2 mg/dL) Cancelled 4.1 H Estimated GFR (>60 ml/min) 14 L BUN/Creatinine Ratio (7 - 25 %) Cancelled 15.9 Lactic Acid (0.7 - 2.1 mmol/L) 2.5 H Urines Ur Random Creatinine (mg/dL) 79.9 Ur Random Sodium (30 - 90 mmol/L) 51 Ur Random Potassium (mmol/L) 17.0 Fraction Sodium Excret (<1% %) 1.9 H 07/08 1505 Chemistry Sodium (137 - 145 mmol/L) 138 Potassium (3.5 - 5.1 mmol/L) 5.9 H Chloride (98 - 107 mmol/L) 109 H Carbon Dioxide (22 - 30 mmol/L) 12 L Anion Gap (5 - 16) 17 H BUN (9 - 20 mg/dL) 66 H Creatinine (0.7 - 1.2 mg/dL) 4.6 H Estimated GFR (>60 ml/min) 12 L BUN/Creatinine Ratio (7 - 25 %) 14.3 Glucose (65 - 99 mg/dL) 190 H Lactic Acid (0.7 - 2.1 mmol/L) 2.7 H Calcium (8.4 - 10.2 mg/dL) 10.2 Magnesium (1.6 - 2.3 mg/dL) 2.2 Total Bilirubin (0.2 - 1.3 mg/dL) 0.6 AST (17 - 59 U/L) 26 ALT (21 - 72 U/L) 20 L Alkaline Phosphatase (< 127 U/L) 87 Troponin I (<0.11 ng/ml) < 0.01 Total Protein (6.3 - 8.2 g/dL) 8.9 H Albumin (3.5 - 5.0 g/dL) 5.3 H Globulin (1.9 - 4.2 gm/dL) 3.6 Albumin/Globulin Ratio (1.1 - 2.2 %) 1.5 Amylase (30 - 110 U/L) 109 Lipase (23 - 300 U/L) 385 H Vitamin B12 (239 - 931 pg/mL) 252 Coagulation PT (9.4 - 12.5 SEC) 11.4 INR (0.90 - 1.17) 1.05 Hematology CBC w Diff NO MAN DIFF REQ WBC (4.8 - 10.8 /CUMM) 9.6 RBC (4.70 - 6.10 /CUMM) 4.70 Hgb (14.0 - 18.0 G/DL) 15.4 Hct (42 - 52 %) 46.2 MCV (80.0 - 94.0 FL) 98.2 H MCH (27.0 - 31.0 PG) 32.8 H MCHC (33.0 - 37.0 G/DL) 33.3 RDW (11.5 - 14.5 %) 15.3 H Plt Count (130 - 400 /CUMM) 261 MPV (7.4 - 10.4 FL) 8.0 Gran % (42.2 - 75.2 %) 82.2 H Lymphocytes % (20.5 - 51.1 %) 11.0 L Monocytes % (1.7 - 9.3 %) 4.8 Eosinophils % (0 - 5 %) 1.3 Basophils % (0.0 - 2.0 %) 0.7 Absolute Granulocytes (1.4 - 6.5 /CUMM) 7.9 H Absolute Lymphocytes (1.2 - 3.4 /CUMM) 1.1 L Absolute Monocytes (0.10 - 0.60 /CUMM) 0.5 Absolute Eosinophils (0.0 - 0.7 /CUMM) 0.1 Absolute Basophils (0.0 - 0.2 /CUMM) 0.1 Assessment/Plan Assessment/Recommendations Assessment: EVELYN probably primarily due to volume depletion. Note serum albumin of 5.3 on admission which clearly points to volume loss. He was eating poorly and was on dapagllifosin, which inhibits sodium-glucose resabsorption and hence results in an osmotic diuresis. EVELYN is a well established complication of medications in this class. Note urine glucose of over 1000 on presentation. Moreover he was on an ACEI which will exacerbate drop in GFR in face of volume loss. BP was on low side for someone with hypertension although othostatics not recorded. Not clear what urine volume was when [facility] placed, I was told it was around 500 cc, which although elevated woudln't usually cause EVELYN, especially with CT showing no hydronephrosis. Orign of GI complaints which may have trigger poor intake needs to be determined. May have some CKD, should check recent labs with PMD, although not much dipstick proteinuria. Recommendations: Continue NS as you are doing. Stop dapaglifosin, hold ACEI for now. Agree with oral bicarb at least temporarily. Depending on baseline creatinine may need w/u for ckd with U pr/cr, hepatitis serolgies, SPEP. Has gross hematauria now from [place] so not a good time to measure urinary protien.
--- NOTE | 2018-07-09 13:01 | Cons- Gastroenterology ---
General Information and HPI Consulting Request Date of Consult: 07/09/18 Requested By: Roscoe Lara MD Reason for Consult: Abdominal pain Allergies/Medications Allergies: Coded Allergies: NO KNOWN ALLERGIES (07/08/18) Home Med List: Allopurinol 300 MG TABLET 1 TAB PO DAILY URIC ACID (Reported) Aspirin (Ecotrin*) 81 MG TABLET.DR 1 TAB PO DAILY HEART/BLOOD (Reported) Dapagliflozin Propanediol (Farxiga) 5 MG TABLET 1 TAB PO DAILY DM (Reported) Ezetimibe/Simvastatin (Vytorin 10-20 MG Tablet) 10 MG-20 MG TABLET 1 TAB PO DAILY HEART/BP (Reported) Flecainide Acetate 100 MG TABLET 1 TAB PO BID HEART (Reported) Lisinopril 20 MG TABLET 1 TAB PO DAILY BP (Reported) Metoprolol Succinate 50 MG TAB.ER.24H 1 TAB PO DAILY HEART/BP (Reported) Sitagliptin Phos/Metformin HCl (Janumet 50-1,000 MG Tablet) 50 MG-1,000 MG TABLET 1 TAB PO BID DM (Reported) Current Medications: Current Medications Sig/Renu Start time Last Medication Dose Route Stop Time Status Admin Aspirin 0 .STK-MED ONE 07/08 2221 DC PO Aspirin Buffered 81 MG DAILY 07/08 202 AC 07/09 PO 1208 Calcium Gluconate 0 .STK-MED ONE 07/08 1623 DC IV Calcium Gluconate 0 .STK-MED ONE 07/08 1618 DC IV Calcium Gluconate 1 GM ONCE ONE 07/08 1615 DC 07/08 Sodium Chloride 100 ML IV 07/08 1714 1642 Dextrose 0 .STK-MED ONE 07/08 1617 DC IV Dextrose 25 GM ONCE ONE 07/08 1600 DC 07/08 IV 07/08 1601 1642 Dextrose/Sodium 1,000 ML Q20H 07/08 2100 AC 07/08 Chloride IV 2216 Flecainide Acetate 100 MG BID 07/08 2100 CAN PO Heparin Sodium 0 .STK-MED ONE 07/08 1903 DC (Porcine) .ROUTE Heparin Sodium 5,000 UNIT Q8 07/08 1746 AC 07/09 (Porcine) SC 0519 Insulin Human Regular 0 Q6 07/08 2359 AC 07/09 SC 0519 Insulin Human Regular 10 UNITS ONCE ONE 07/08 1600 DC 07/08 IV 07/08 1601 1642 Metoclopramide HCl 5 MG Q12P PRN 07/08 2115 AC IV Metoprolol Succinate 50 MG DAILY 07/08 2023 AC 07/09 PO 1208 Ondansetron HCl 0 .STK-MED ONE 07/08 1455 CAN .ROUTE Ondansetron HCl 4 MG ONCE ONE 07/08 1445 DC 07/08 IV 07/08 1446 1508 Pantoprazole Sodium 40 MG DAILY 07/09 0900 AC 07/09 IV 0815 Sodium Bicarbonate 650 MG BID 07/08 2100 AC 07/09 PO 1207 Sodium Bicarbonate 0 .STK-MED ONE 07/08 1549 DC IV Sodium Bicarbonate 50 MEQ ONCE ONE 07/08 1545 DC 07/08 IV 07/08 1546 1605 Sodium Chloride 1,000 ML Q20H 07/08 2030 DC IV Sodium Chloride 1,000 ML BOLUS ONE 07/08 1545 DC 07/08 IV 07/08 1744 1605 Past History Travel History Traveled to [place] past 21 day No Medical History Neurological: NONE EENT: NONE Cardiovascular: NONE (SVT), hypertension, hyperlipidemia Respiratory: NONE Gastrointestinal: NONE Hepatic: NONE Renal: NONE Musculoskeletal: NONE Psychiatric: NONE Endocrine: diabetes Blood Disorders: NONE Cancer(s): NONE Surgical History Surgical History: 1 Psychosocial History Services at Home: None Smoking Status: Never Smoked Exam & Diagnostic Data Vital Signs and I&O Vital Signs Date Time Temp Pulse Resp B/P B/P Pulse O2 O2 Flow FiO2 Mean Ox Delivery Rate 07/09 1208 75 138/84 07/09 0633 98.1 76 20 118/57 96 Room Air 07/08 2231 85 142/60 07/08 2143 97.8 85 18 142/60 94 Room Air 07/08 1947 84 16 110/50 94 Room Air 07/08 1643 97.5 88 18 129/65 92 07/08 1507 Room Air Room Air 07/08 1445 98.4 95 18 102/60 93 Room Air Intake & Output 07/09 1600 07/09 0400 07/08 1600 07/08 0400 07/07 1600 07/07 0400 Intake Total 400 120 0 Output Total 350 600 Balance 50 -480 0 Intake, IV 400 Intake, Oral 120 0 Output, Urine 350 600 Patient 189 lb 184 lb Weight Weight Bed scale Estimated Measurement Method Results Pertinent Lab Results: Laboratory Tests 07/09 07/08 0655 1930 Chemistry Sodium (137 - 145 mmol/L) 139 Potassium (3.5 - 5.1 mmol/L) 5.5 H Chloride (98 - 107 mmol/L) 116 H Carbon Dioxide (22 - 30 mmol/L) 15 L Anion Gap (5 - 16) 8 BUN (9 - 20 mg/dL) 61 H Creatinine (0.7 - 1.2 mg/dL) 3.0 H Estimated GFR (>60 ml/min) 20 L BUN/Creatinine Ratio (7 - 25 %) 20.3 Magnesium (1.6 - 2.3 mg/dL) 2.2 Hematology CBC w Diff NO MAN DIFF REQ WBC (4.8 - 10.8 /CUMM) 8.1 RBC (4.70 - 6.10 /CUMM) 4.30 L Hgb (14.0 - 18.0 G/DL) 14.1 Hct (42 - 52 %) 42.4 MCV (80.0 - 94.0 FL) 98.7 H MCH (27.0 - 31.0 PG) 32.9 H MCHC (33.0 - 37.0 G/DL) 33.4 RDW (11.5 - 14.5 %) 15.0 H Plt Count (130 - 400 /CUMM) 206 MPV (7.4 - 10.4 FL) 8.4 Gran % (42.2 - 75.2 %) 75.9 H Lymphocytes % (20.5 - 51.1 %) 13.8 L Monocytes % (1.7 - 9.3 %) 7.9 Eosinophils % (0 - 5 %) 1.9 Basophils % (0.0 - 2.0 %) 0.5 Absolute Granulocytes (1.4 - 6.5 /CUMM) 6.1 Absolute Lymphocytes (1.2 - 3.4 /CUMM) 1.1 L Absolute Monocytes (0.10 - 0.60 /CUMM) 0.6 Absolute Eosinophils (0.0 - 0.7 /CUMM) 0.2 Absolute Basophils (0.0 - 0.2 /CUMM) 0 Urines Urine Color (YEL,AMB,STR) YEL Urine Clarity (CLEAR) CLEAR Urine pH (5.0 - 8.0) 6.0 Ur Specific [place] (1.001 - 1.035) 1.025 Urine Protein (NEG,<30 MG/DL) NEG Urine Ketones (NEG) NEG Urine Nitrite (NEG) NEG Urine Bilirubin (NEG) NEG Urine Urobilinogen (0.1 - 1.0 EU/dl) 0.2 Ur Leukocyte Esterase (NEG) NEG Ur Microscopic SEDIMENT EXAMINED Urine RBC (0 - 5 /HPF) 1-3 Ur Epithelial Cells (NONE,FEW) RARE Urine Bacteria (NEG/NONE) FEW H Urine Hemoglobin (NEG) MOD H Urine Glucose (N MG/DL) >=1000 H 07/08 07/08 07/08 07/08 1930 1759 1758 1758 Chemistry Sodium (137 - 145 mmol/L) Cancelled 138 Potassium (3.5 - 5.1 mmol/L) Cancelled 5.5 H Chloride (98 - 107 mmol/L) Cancelled 110 H Carbon Dioxide (22 - 30 mmol/L) Cancelled 15 L Anion Gap (5 - 16) Cancelled 13 BUN (9 - 20 mg/dL) Cancelled 65 H Creatinine (0.7 - 1.2 mg/dL) Cancelled 4.1 H Estimated GFR (>60 ml/min) 14 L BUN/Creatinine Ratio (7 - 25 %) Cancelled 15.9 Lactic Acid (0.7 - 2.1 mmol/L) 2.5 H Urines Ur Random Creatinine (mg/dL) 79.9 Ur Random Sodium (30 - 90 mmol/L) 51 Ur Random Potassium (mmol/L) 17.0 Fraction Sodium Excret (<1% %) 1.9 H 07/08 1505 Chemistry Sodium (137 - 145 mmol/L) 138 Potassium (3.5 - 5.1 mmol/L) 5.9 H Chloride (98 - 107 mmol/L) 109 H Carbon Dioxide (22 - 30 mmol/L) 12 L Anion Gap (5 - 16) 17 H BUN (9 - 20 mg/dL) 66 H Creatinine (0.7 - 1.2 mg/dL) 4.6 H Estimated GFR (>60 ml/min) 12 L BUN/Creatinine Ratio (7 - 25 %) 14.3 Glucose (65 - 99 mg/dL) 190 H Lactic Acid (0.7 - 2.1 mmol/L) 2.7 H Calcium (8.4 - 10.2 mg/dL) 10.2 Magnesium (1.6 - 2.3 mg/dL) 2.2 Total Bilirubin (0.2 - 1.3 mg/dL) 0.6 AST (17 - 59 U/L) 26 ALT (21 - 72 U/L) 20 L Alkaline Phosphatase (< 127 U/L) 87 Troponin I (<0.11 ng/ml) < 0.01 Total Protein (6.3 - 8.2 g/dL) 8.9 H Albumin (3.5 - 5.0 g/dL) 5.3 H Globulin (1.9 - 4.2 gm/dL) 3.6 Albumin/Globulin Ratio (1.1 - 2.2 %) 1.5 Amylase (30 - 110 U/L) 109 Lipase (23 - 300 U/L) 385 H Vitamin B12 (239 - 931 pg/mL) 252 Coagulation PT (9.4 - 12.5 SEC) 11.4 INR (0.90 - 1.17) 1.05 Hematology CBC w Diff NO MAN DIFF REQ WBC (4.8 - 10.8 /CUMM) 9.6 RBC (4.70 - 6.10 /CUMM) 4.70 Hgb (14.0 - 18.0 G/DL) 15.4 Hct (42 - 52 %) 46.2 MCV (80.0 - 94.0 FL) 98.2 H MCH (27.0 - 31.0 PG) 32.8 H MCHC (33.0 - 37.0 G/DL) 33.3 RDW (11.5 - 14.5 %) 15.3 H Plt Count (130 - 400 /CUMM) 261 MPV (7.4 - 10.4 FL) 8.0 Gran % (42.2 - 75.2 %) 82.2 H Lymphocytes % (20.5 - 51.1 %) 11.0 L Monocytes % (1.7 - 9.3 %) 4.8 Eosinophils % (0 - 5 %) 1.3 Basophils % (0.0 - 2.0 %) 0.7 Absolute Granulocytes (1.4 - 6.5 /CUMM) 7.9 H Absolute Lymphocytes (1.2 - 3.4 /CUMM) 1.1 L Absolute Monocytes (0.10 - 0.60 /CUMM) 0.5 Absolute Eosinophils (0.0 - 0.7 /CUMM) 0.1 Absolute Basophils (0.0 - 0.2 /CUMM) 0.1 Imaging/Other Studies: CT scan without IV contrast: IMPRESSION: 1. Intra-hepatic and extrahepatic biliary dilatation, distended gallbladder, although stones cannot be seen by CT scan, cannot rule out stones or obstructing mass within the CBD or head of the pancreas. 2. Diverticulosis without evidence of diverticulitis. 3. Bilateral renal cysts. Nonspecific mild bilateral perinephric fat stranding's. Ultrasound of the abdomen: IMPRESSION: * Enlarged echogenic liver likely hepatic steatosis. No focal liver lesion seen. * Distended gallbladder but no echogenic stones. * The CBD is distended measuring 1.7 cm in diameter with echogenic sludge or mass within. No echogenic stones seen. Recommend MRCP or ERCP for correlation. Assessment/Plan Assessment/Recommendations: The patient presented several weeks of upper/central abdominal pain, and more recent nausea. He had a decrease in appetite and oral intake. Although his liver enzymes are normal, he has imaging evidence of biliary obstruction with dilated intra-and extrahepatic ducts, and a distended gallbladder. His pain and nausea have improved in-hospital. Interestingly, there is a family history of gallbladder cancer. Recommendations * Low-fat diet as tolerated * MRCP/MRI of the pancreas * No emergent ERCP given normal LFTs, and degree of symptoms * Evaluation/management of kidney injury Consult Acknowledgment - Thank you for your consult request.
[2018-07-09 14:45] VITALS: BP 90/40
--- NOTE | 2018-07-09 15:06 | Cons- Cardiology ---
General Information and HPI Consulting Request Date of Consult: 07/09/18 Requested By: Roscoe Lara MD History of Present Illness: 82 year old man with history of SVT 2007 (Dr. Jaime), Right bundle branch block, Hypertension, Hyperlipidemia, Type 2 diabetes, GERD, diverticulosis ,GI bleed. Patient was referred from urgent care where he had presented himself for abdominal pain, nausea and poor appetite. Upon arrival to the ED, patient was found to be in renal failure with a creatinine of 3.0, K+ of 5.9, evidence of biliary obstruction evaluated by Dr Hall. In addition his EKG was highly abnormal, with widened QRS, severe repolarization abnormalities and junctional rhythm. He was initially treated for hyperkalemia induced EKG changes with insulin, which improved his EKG. It was later found that the patient takes flecainide daily, which was promptly discontinued, and EKG has been normalizing. Allergies/Medications Allergies: Coded Allergies: NO KNOWN ALLERGIES (07/08/18) Home Med List: Allopurinol 300 MG TABLET 1 TAB PO DAILY URIC ACID (Reported) Aspirin (Ecotrin*) 81 MG TABLET.DR 1 TAB PO DAILY HEART/BLOOD (Reported) Dapagliflozin Propanediol (Farxiga) 5 MG TABLET 1 TAB PO DAILY DM (Reported) Ezetimibe/Simvastatin (Vytorin 10-20 MG Tablet) 10 MG-20 MG TABLET 1 TAB PO DAILY HEART/BP (Reported) Flecainide Acetate 100 MG TABLET 1 TAB PO BID HEART (Reported) Lisinopril 20 MG TABLET 1 TAB PO DAILY BP (Reported) Metoprolol Succinate 50 MG TAB.ER.24H 1 TAB PO DAILY HEART/BP (Reported) Sitagliptin Phos/Metformin HCl (Janumet 50-1,000 MG Tablet) 50 MG-1,000 MG TABLET 1 TAB PO BID DM (Reported) Current Medications: Current Medications Sig/Renu Start time Last Medication Dose Route Stop Time Status Admin Aspirin 0 .STK-MED ONE 07/081 DC PO Aspirin Buffered 81 MG DAILY 07/08 2024 AC 07/09 PO 1208 Calcium Gluconate 0 .STK-MED ONE 07/08 1623 DC IV Calcium Gluconate 0 .STK-MED ONE 07/08 1618 DC IV Calcium Gluconate 1 GM ONCE ONE 07/08 1615 DC 07/08 Sodium Chloride 100 ML IV 07/08 1714 1642 Dextrose 0 .STK-MED ONE 07/08 1617 DC IV Dextrose 25 GM ONCE ONE 07/08 1600 DC 07/08 IV 07/08 1601 1642 Dextrose/Sodium 1,000 ML Q20H 07/08 2100 AC 07/08 Chloride IV 2216 Flecainide Acetate 100 MG BID 07/08 2100 CAN PO Heparin Sodium 0 .STK-MED ONE 07/08 1903 DC (Porcine) .ROUTE Heparin Sodium 5,000 UNIT Q8 07/08 1746 AC 07/09 (Porcine) SC 1312 Insulin Aspart 0 TIDAC 07/09 1700 AC SC Insulin Human Regular 0 Q6 07/08 2359 DC 07/09 SC 0519 Insulin Human Regular 10 UNITS ONCE ONE 07/08 1600 DC 07/08 IV 07/08 1601 1642 Metoclopramide HCl 5 MG Q12P PRN 07/08 2115 AC IV Metoprolol Succinate 50 MG DAILY 07/08 2023 AC 07/09 PO 1208 Ondansetron HCl 0 .STK-MED ONE 07/08 1455 CAN .ROUTE Pantoprazole Sodium 40 MG DAILY 07/09 0900 AC 07/09 IV 0815 Sodium Bicarbonate 650 MG BID 07/08 2100 AC 07/09 PO 1207 Sodium Bicarbonate 0 .STK-MED ONE 07/08 1549 DC IV Sodium Bicarbonate 50 MEQ ONCE ONE 07/08 1545 DC 07/08 IV 07/08 1546 1605 Sodium Chloride 1,000 ML Q20H 07/08 2030 DC IV Sodium Chloride 1,000 ML BOLUS ONE 07/08 1545 DC 07/08 IV 07/08 1744 1605 Review of Systems Review of Systems: see HPI Past History Travel History Traveled to [place] past 21 day No Medical History Neurological: NONE EENT: NONE Cardiovascular: NONE (SVT), hypertension, hyperlipidemia Respiratory: NONE Gastrointestinal: NONE Hepatic: NONE Renal: NONE Musculoskeletal: NONE Psychiatric: NONE Endocrine: diabetes Blood Disorders: NONE Cancer(s): NONE Surgical History Surgical History: 1 Psychosocial History Services at Home: None Smoking Status: Never Smoked Exam & Diagnostic Data Vital Signs and I&O Vital Signs Date Time Temp Pulse Resp B/P B/P Pulse O2 O2 Flow FiO2 Mean Ox Delivery Rate 07/09 1445 97.8 75 20 90/40 96 Room Air 07/09 1208 75 138/84 07/09 0633 98.1 76 20 118/57 96 Room Air 07/08 2231 85 142/60 07/08 2143 97.8 85 18 142/60 94 Room Air 07/08 1947 84 16 110/50 94 Room Air 07/08 1643 97.5 88 18 129/65 92 07/08 1507 Room Air Room Air Intake & Output 07/09 0800 07/09 0000 07/08 1600 07/08 0800 07/08 0000 Intake Total 400 120 0 Output Total 350 600 Balance 50 -480 0 Intake, IV 400 Intake, Oral 120 0 Output, Urine 350 600 Patient 189 lb 184 lb Weight Weight Bed scale Estimated Measurement Method Physical Exam: General Appearance Alert, Oriented X3, Cooperative, No Acute Distress Neck No JVD, trachea midline, neck supple Cardiovascular Normal S1, Normal S2, no audible murmur Lungs Clear to Auscultation, Normal Air Movement Abdomen Soft, distended, tenderness in right upper quadrant, gall bladder is palpable Neurological Normal Speech, no focal motor or sensory deficit Extremities capillary refill, No Edema Labs/Jakob Results: Laboratory Tests 07/09 07/08 0655 1930 Chemistry Sodium (137 - 145 mmol/L) 139 Potassium (3.5 - 5.1 mmol/L) 5.5 H Chloride (98 - 107 mmol/L) 116 H Carbon Dioxide (22 - 30 mmol/L) 15 L Anion Gap (5 - 16) 8 BUN (9 - 20 mg/dL) 61 H Creatinine (0.7 - 1.2 mg/dL) 3.0 H Estimated GFR (>60 ml/min) 20 L BUN/Creatinine Ratio (7 - 25 %) 20.3 Hemoglobin A1c (4.2 - 5.8 %) Pending Magnesium (1.6 - 2.3 mg/dL) 2.2 Hematology CBC w Diff NO MAN DIFF REQ WBC (4.8 - 10.8 /CUMM) 8.1 RBC (4.70 - 6.10 /CUMM) 4.30 L Hgb (14.0 - 18.0 G/DL) 14.1 Hct (42 - 52 %) 42.4 MCV (80.0 - 94.0 FL) 98.7 H MCH (27.0 - 31.0 PG) 32.9 H MCHC (33.0 - 37.0 G/DL) 33.4 RDW (11.5 - 14.5 %) 15.0 H Plt Count (130 - 400 /CUMM) 206 MPV (7.4 - 10.4 FL) 8.4 Gran % (42.2 - 75.2 %) 75.9 H Lymphocytes % (20.5 - 51.1 %) 13.8 L Monocytes % (1.7 - 9.3 %) 7.9 Eosinophils % (0 - 5 %) 1.9 Basophils % (0.0 - 2.0 %) 0.5 Absolute Granulocytes (1.4 - 6.5 /CUMM) 6.1 Absolute Lymphocytes (1.2 - 3.4 /CUMM) 1.1 L Absolute Monocytes (0.10 - 0.60 /CUMM) 0.6 Absolute Eosinophils (0.0 - 0.7 /CUMM) 0.2 Absolute Basophils (0.0 - 0.2 /CUMM) 0 Urines Urine Color (YEL,AMB,STR) YEL Urine Clarity (CLEAR) CLEAR Urine pH (5.0 - 8.0) 6.0 Ur Specific Wray (1.001 - 1.035) 1.025 Urine Protein (NEG,<30 MG/DL) NEG Urine Ketones (NEG) NEG Urine Nitrite (NEG) NEG Urine Bilirubin (NEG) NEG Urine Urobilinogen (0.1 - 1.0 EU/dl) 0.2 Ur Leukocyte Esterase (NEG) NEG Ur Microscopic SEDIMENT EXAMINED Urine RBC (0 - 5 /HPF) 1-3 Ur Epithelial Cells (NONE,FEW) RARE Urine Bacteria (NEG/NONE) FEW H Urine Hemoglobin (NEG) MOD H Urine Glucose (N MG/DL) >=1000 H 07/08 07/08 07/08 07/08 1930 1759 1758 1758 Chemistry Sodium (137 - 145 mmol/L) Cancelled 138 Potassium (3.5 - 5.1 mmol/L) Cancelled 5.5 H Chloride (98 - 107 mmol/L) Cancelled 110 H Carbon Dioxide (22 - 30 mmol/L) Cancelled 15 L Anion Gap (5 - 16) Cancelled 13 BUN (9 - 20 mg/dL) Cancelled 65 H Creatinine (0.7 - 1.2 mg/dL) Cancelled 4.1 H Estimated GFR (>60 ml/min) 14 L BUN/Creatinine Ratio (7 - 25 %) Cancelled 15.9 Lactic Acid (0.7 - 2.1 mmol/L) 2.5 H Urines Ur Random Creatinine (mg/dL) 79.9 Ur Random Sodium (30 - 90 mmol/L) 51 Ur Random Potassium (mmol/L) 17.0 Fraction Sodium Excret (<1% %) 1.9 H 07/08 1505 Chemistry Sodium (137 - 145 mmol/L) 138 Potassium (3.5 - 5.1 mmol/L) 5.9 H Chloride (98 - 107 mmol/L) 109 H Carbon Dioxide (22 - 30 mmol/L) 12 L Anion Gap (5 - 16) 17 H BUN (9 - 20 mg/dL) 66 H Creatinine (0.7 - 1.2 mg/dL) 4.6 H Estimated GFR (>60 ml/min) 12 L BUN/Creatinine Ratio (7 - 25 %) 14.3 Glucose (65 - 99 mg/dL) 190 H Lactic Acid (0.7 - 2.1 mmol/L) 2.7 H Calcium (8.4 - 10.2 mg/dL) 10.2 Magnesium (1.6 - 2.3 mg/dL) 2.2 Total Bilirubin (0.2 - 1.3 mg/dL) 0.6 AST (17 - 59 U/L) 26 ALT (21 - 72 U/L) 20 L Alkaline Phosphatase (< 127 U/L) 87 Troponin I (<0.11 ng/ml) < 0.01 Total Protein (6.3 - 8.2 g/dL) 8.9 H Albumin (3.5 - 5.0 g/dL) 5.3 H Globulin (1.9 - 4.2 gm/dL) 3.6 Albumin/Globulin Ratio (1.1 - 2.2 %) 1.5 Amylase (30 - 110 U/L) 109 Lipase (23 - 300 U/L) 385 H Vitamin B12 (239 - 931 pg/mL) 252 Coagulation PT (9.4 - 12.5 SEC) 11.4 INR (0.90 - 1.17) 1.05 Hematology CBC w Diff NO MAN DIFF REQ WBC (4.8 - 10.8 /CUMM) 9.6 RBC (4.70 - 6.10 /CUMM) 4.70 Hgb (14.0 - 18.0 G/DL) 15.4 Hct (42 - 52 %) 46.2 MCV (80.0 - 94.0 FL) 98.2 H MCH (27.0 - 31.0 PG) 32.8 H MCHC (33.0 - 37.0 G/DL) 33.3 RDW (11.5 - 14.5 %) 15.3 H Plt Count (130 - 400 /CUMM) 261 MPV (7.4 - 10.4 FL) 8.0 Gran % (42.2 - 75.2 %) 82.2 H Lymphocytes % (20.5 - 51.1 %) 11.0 L Monocytes % (1.7 - 9.3 %) 4.8 Eosinophils % (0 - 5 %) 1.3 Basophils % (0.0 - 2.0 %) 0.7 Absolute Granulocytes (1.4 - 6.5 /CUMM) 7.9 H Absolute Lymphocytes (1.2 - 3.4 /CUMM) 1.1 L Absolute Monocytes (0.10 - 0.60 /CUMM) 0.5 Absolute Eosinophils (0.0 - 0.7 /CUMM) 0.1 Absolute Basophils (0.0 - 0.2 /CUMM) 0.1 Assessment/Plan Assessment/Plan Acute EKG changes consistent with flecainide toxicity in the context of EVELYN/poor intake/biliary obstruction. D/C flecainide until further notice. EKG daily. Problem List: 1. Acute renal failure (ARF) 2. Hyperkalemia 3. Acute electrocardiogram changes 4. Metabolic acidosis 5. Type 2 diabetes mellitus Consult Acknowledgment - Thank you for your consult request.
--- NOTE | 2018-07-09 21:35 | Cons- Urology ---
General Information and HPI Consulting Request Date of Consult: 07/09/18 Requested By: Roscoe Lara MD Reason for Consult: Urinary retention Source of Information: patient, old records Exam Limitations: no limitations History of Present Illness: Patient is an 82-year-old gentleman who presented to the ER complaining of a few week history of lower abdominal discomfort and worsening urinary stent. He does strain to void of recent times, has never seen urologist for this problem. He describes his problem mostly suprapubic, but denies any flank pain. He presented complaining of nausea but denied any vomiting. He did have a decreased appetite. Puente catheter was placed, which reportedly yielded approximately 1 L of fluid. Patient said he is discomfort seemed to resolve the catheter was placed. Allergies/Medications Allergies: Coded Allergies: NO KNOWN ALLERGIES (07/08/18) Home Med List: Allopurinol 300 MG TABLET 1 TAB PO DAILY URIC ACID (Reported) Aspirin (Ecotrin*) 81 MG TABLET.DR 1 TAB PO DAILY HEART/BLOOD (Reported) Dapagliflozin Propanediol (Farxiga) 5 MG TABLET 1 TAB PO DAILY DM (Reported) Ezetimibe/Simvastatin (Vytorin 10-20 MG Tablet) 10 MG-20 MG TABLET 1 TAB PO DAILY HEART/BP (Reported) Flecainide Acetate 100 MG TABLET 1 TAB PO BID HEART (Reported) Lisinopril 20 MG TABLET 1 TAB PO DAILY BP (Reported) Metoprolol Succinate 50 MG TAB.ER.24H 1 TAB PO DAILY HEART/BP (Reported) Sitagliptin Phos/Metformin HCl (Janumet 50-1,000 MG Tablet) 50 MG-1,000 MG TABLET 1 TAB PO BID DM (Reported) Current Medications: Current Medications Sig/Renu Start time Last Medication Dose Route Stop Time Status Admin Aspirin 0 .STK-MED ONE 07/08 2221 DC PO Aspirin Buffered 81 MG DAILY 07/08 2024 AC 07/09 PO 1208 Dextrose/Sodium 1,000 ML ONCE ONE 07/10 0000 AC Chloride IV 07/10 1959 Dextrose/Sodium 1,000 ML Q20H 07/08 2100 DC 07/08 Chloride IV 2216 Heparin Sodium 5,000 UNIT Q8 07/08 1746 AC 07/09 (Porcine) SC 2035 Insulin Aspart 0 TIDAC 07/09 1700 AC 07/09 SC 1647 Insulin Human Regular 0 Q6 07/08 2359 DC 07/09 SC 0519 Metoclopramide HCl 5 MG Q12P PRN 07/08 2115 AC IV Metoprolol Succinate 50 MG DAILY 07/08 2023 AC 07/09 PO 1208 Pantoprazole Sodium 40 MG DAILY 07/09 09 AC 07/09 IV 0815 Sodium Bicarbonate 650 MG BID 07/08 2100 AC 07/09 PO 2034 Past History Medical History Neurological: NONE EENT: NONE Cardiovascular: NONE (SVT), hypertension, hyperlipidemia Respiratory: NONE Gastrointestinal: NONE Hepatic: NONE Renal: NONE Musculoskeletal: NONE Psychiatric: NONE Endocrine: diabetes Blood Disorders: NONE Cancer(s): NONE Surgical History Pertinent Surgical History: 1 Psychosocial History Services at Home: None Smoking Status: Never Smoked Review of Systems Review of Systems: See HPI Exam & Diagnostic Data Vital Signs and I&O Vital Signs Date Time Temp Pulse Resp B/P B/P Pulse O2 O2 Flow FiO2 Mean Ox Delivery Rate 07/09 1445 97.8 75 20 90/40 96 Room Air 07/09 1208 75 138/84 07/09 0633 98.1 76 20 118/57 96 Room Air 07/08 2231 85 142/60 07/08 2143 97.8 85 18 142/60 94 Room Air Intake & Output 07/09 1600 07/09 0000 07/08 1600 07/08 0800 07/08 0000 Intake Total 400 120 0 Output Total 200 350 600 Balance -200 50 -480 0 Intake, IV 400 Intake, Oral 120 0 Output, Urine 200 350 600 Patient 189 lb 184 lb Weight Weight Bed scale Estimated Measurement Method Physical Exam: Patient is awake alert and oriented, and resting comfortably. Abdomen is soft, nontender. No flank pain or CVA tenderness. Puente catheter is indwelling, his bladder is not distended. Catheter is draining pink urine. Physical Exam General Appearance: well developed/nourished, no apparent distress, alert, awake , comfortable Assessment/Plan Assessment/Plan I reviewed his CT scan and his ultrasound, which revealed normal upper tracts. He does have renal cysts, but no evidence hydronephrosis. I discussed the situation at length with the patient. He has what appears to be long-standing BPH, with worsening symptoms recently. He has significant retention at this time. Return if his workup appears to be focused now on his common bile duct, and he has an indwelling Puente catheter. He should be started on tamsulosin 0.4 mg daily, and finasteride 5 mg daily at this time. Catheter should be left indwelling, and irrigated on a when necessary basis. he will be followed during his hospitalization by Dr. Borrero. Copies To: Marlo Borrero MD Consult Acknowledgment - Thank you for your consult request.
[2018-07-09 22:06] VITALS: BP 102/62
[2018-07-10 06:46] VITALS: BP 104/52
[2018-07-10 08:05] LABS: ABSOLUTE BASOPHIL COUNT 0.1 /CUMM (0.0-0.2); ABSOLUTE EOSINOPHIL COUNT 0.3 /CUMM (0.0-0.7); ABSOLUTE GRANULOCYTE CT 5.3 /CUMM (1.4-6.5); ABSOLUTE LYMPH COUNT 1.3 /CUMM (1.2-3.4); ABSOLUTE MONOCYTE COUNT 0.6 /CUMM (0.10-0.60); BASOPHIL % 0.8 % (0.0-2.0); EOSINOPHIL % 4.1 % (0-5); GRANULOCYTE % 70.2 % (42.2-75.2); HEMATOCRIT 37.7 % (42-52); MEAN CORPUSCULAR HGB 33.5 PG (27.0-31.0); MEAN CORPUSCULAR HGB CONC 33.6 G/DL (33.0-37.0); MEAN CORPUSCULAR VOLUME 99.7 FL (80.0-94.0); MEAN PLATELET VOLUME 8.3 FL (7.4-10.4); PLATELET COUNT 174 /CUMM (130-400); RED BLOOD CELL CT 3.78 /CUMM (4.70-6.10); WHITE BLOOD CELL COUNT 7.5 /CUMM (4.8-10.8)
--- NOTE | 2018-07-10 08:29 | PN- Housestaff ---
Vikram WELCH,Nicol 07/10/18 0829: Subjective Follow-up For: Acute kidney injury secondary to dehydration because of the Farxiga/Digliflozin Complaints: no complaints Tele-Events Since Last Visit: No any overnight events Subjective: Patient is seen and examined at the bedside. He was having hematuria through the Coronel catheter. We discussed about the plan for today. Review of Systems Constitutional: Reports: no symptoms. Gastrointestinal: Reports: abdominal pain. Objective Last 24 Hrs of Vital Signs/I&O Vital Signs Date Time Temp Pulse Resp B/P B/P Pulse O2 O2 Flow FiO2 Mean Ox Delivery Rate 07/10 1454 97.5 90 20 140/64 97 Room Air 07/10 0950 90 130/70 07/10 0950 90 130/70 07/10 0646 97.6 68 20 104/52 93 Room Air 07/09 2206 97.7 90 16 102/62 91 Room Air 07/09 2132 Room Air Intake & Output 07/10 1600 07/10 0800 07/10 0000 Intake Total 830 600 240 Output Total 650 550 350 Balance 180 50 -110 Intake, IV 350 600 Intake, Oral 480 0 240 Number 0 Bowel Movements Output, Urine 650 550 350 Patient 85.842 kg Weight Weight Bed scale Measurement Method Physical Exam General Appearance: Alert, Oriented X3, Cooperative, No Acute Distress Cardiovascular: Normal S1, Normal S2 Lungs: Clear to Auscultation, Normal Air Movement Abdomen: distended, gall bladder is palpable, coronel catheter in place and urine is having blood. Neurological: Normal Speech Extremities: No Clubbing, No Cyanosis, No Edema Current Medications: Current Medications Sig/Renu Start time Last Medication Dose Route Stop Time Status Admin Aspirin Buffered 81 MG DAILY 07/08 2024 AC 07/10 PO 0950 Cyanocobalamin 1,000 MCG Q30D 07/10 1200 AC 07/10 IM 1302 Dextrose/Sodium 1,000 ML Q20H 07/10 1500 AC 07/10 Chloride IV 1552 Dextrose/Sodium 1,000 ML ONCE ONE 07/10 0000 AC 07/10 Chloride IV 07/10 1959 0032 Finasteride 5 MG DAILY 07/10 0900 AC 07/10 PO 0950 Heparin Sodium 5,000 UNIT Q8 07/08 1746 DC 07/10 (Porcine) SC 1302 Insulin Aspart 0 TIDAC 07/09 1700 AC 07/10 SC 1655 Metoclopramide HCl 5 MG Q12P PRN 07/08 2115 AC IV Metoprolol Succinate 50 MG DAILY 07/08 2023 AC 07/10 PO 0950 Pantoprazole Sodium 40 MG DAILY 07/09 09 AC 07/10 IV 0950 Sodium Bicarbonate 650 MG BID 07/08 2100 AC 07/10 PO 0950 Tamsulosin HCl 0.4 MG DAILY 07/10 09 AC 07/10 PO 0950 Last 24 Hrs of Lab/Jakob Results Last 24 Hrs of Labs/Mics: Laboratory Tests 07/10/18 0655: Anion Gap 5, Estimated GFR 24 L, BUN/Creatinine Ratio 20.4, Magnesium 2.0, CBC w Diff NO MAN DIFF REQ, RBC 3.78 L, MCV 99.7 H, MCH 33.5 H, MCHC 33.6, RDW 15.0 H, MPV 8.3, Gran % 70.2, Lymphocytes % 17.0 L, Monocytes % 7.9, Eosinophils % 4.1, Basophils % 0.8, Absolute Granulocytes 5.3, Absolute Lymphocytes 1.3, Absolute Monocytes 0.6, Absolute Eosinophils 0.3, Absolute Basophils 0.1, Hepatitis A IgM Ab NONREACTIVE, Hep Bs Antigen NONREACTIVE, Hep B Core IgM Ab Conf NONREACTIVE, Hepatitis C Antibody NONREACTIVE Assessment/Plan Assessment: Patient is an 82-year-old male presented with a chief complaints of abdominal pain, sent by the urgent care for evaluation. Past medical history- History of SVT 2007, converted to normal sinus rhythm of diagnosing following Dr. Jaime; currently on flecainide and metoprolol Right bundle branch block Hypertension Hyperlipidemia Type 2 diabetes GERD History of polyps History of diverticulosis History of GI bleed Vital signs-temperature 97.7, pulse 90, respiratory rate 16, blood pressure 140/ 64, SPO2 97% on room air. Blood workup-WBC 7.5, hemoglobin 12.7, platelet count 174, sodium 139, potassium 4.9, chloride 116, carbon dioxide 17, 95, BUN 53, creatinine 2.6, GFR 24, magnesium 2.0, MRCP- - Cholelithiasis without cholecystitis. - Dilatation of the proximal CBD and intrahepatic ducts has worsened compared to 12/15/2011. The proximal CBD measures up to 2 cm AP diameter and contains multiple calculi (i.e., choledocholithiasis). The distal segment of the CBD is normal and measures 0.5 cm diameter. Assessment and plan- * His creatinine is improving; discussed with the motor room controller advised to continue IV hydration. * He started having hematuria, we started him on Flomax and tamsulosin. If his creatinine continues to improve then we will decide for removing the catheter. * His MRCP showing evidence of choledocholithiasis though he is asymptomatic and his LFTs normal discussed with Dr. Hall advised that he will leave his recommendation probably conservative management. * Discussed with the gristmill operator advised to continue to hold flecainide until patient's renal function improved. * Diet-consistent carbohydrate diet. * CODE STATUS-DNR/DNI * DVT prophylaxis -his platelet count has been dropped down; so we stop the DVT prophylaxis and watch for the platelet tomorrow. Problem List: 1. Type 2 diabetes mellitus 2. Metabolic acidosis 3. Hyperkalemia 4. Acute renal failure (ARF) Pain Ratin Pain Location: lower abd Pain Goal: Remain pain free Pain Plan: avoid NSAIDs Tomorrow's Labs & Rationales: f/u cbc, bep, mag DVT/Prophylaxis: mechanical MalinSagarp 07/10/18 1441: Attending MD Review Statement Attending Statement Attending MD Statement: examined this patient, discuss w/resident/PA/AVIATION SAFETY EQUIPMENT TECHNICIAN, agreed w/resident/PA/AVIATION SAFETY EQUIPMENT TECHNICIAN, reviewed EMR data (avail), discussed with case mgmt Attending Assessment/Plan: Acute kidney injury-resolving now with creatinine down to 2.6 today. Could be secondary to worsening BPH as well as the from one of the new diabetic medication that the patient was on. BPH- patient started on finasteride and Flomax. Continue on Coronel catheter and IV fluids. We'll try to DC the Coronel in the next day or 2 and see if he is able to void by himself. Arrhythmia at admission secondary to flecanide toxicity- seen by cardiology and Flecanide was stopped. Discussed with cardiology. Continue to monitor on telemetry for now. Abdominal pain with ultrasound showing intrahepatic biliary dilation- MRCP was done today and showed choledocholithiasis. We will get GI to see the patient and possibly would need ERCP. Discussed with patient the care plan
--- NOTE | 2018-07-10 09:31 | PN- Nephrology ---
Assessment/Plan Nephrology Assessment: EVELYN probably from volume depletion and ACEI (was on dapaglifozin). Renal functin slowly improving. Suggestion: Continue to observe off these meds. I am not sure obstruction per se was playing role in EVELYN given lack of hydronephrosis on CT. Subjective Subjective: Patient awaiting MRI, no abdominal pain. Urology note appreciated. Objective Vital Signs and I&Os Vital Signs Date Time Temp Pulse Resp B/P B/P Pulse O2 O2 Flow FiO2 Mean Ox Delivery Rate 07/10 0646 97.6 68 20 104/52 93 Room Air 07/09 2206 97.7 90 16 102/62 91 Room Air 07/09 2132 Room Air 07/09 1445 97.8 75 20 90/40 96 Room Air 07/09 1208 75 138/84 Intake & Output 07/10 1600 07/10 0400 07/09 1600 07/09 0400 07/08 1600 07/08 0400 Intake Total 600 240 400 120 0 Output Total 550 350 550 600 Balance 50 -110 -150 -480 0 Intake, IV 600 400 Intake, Oral 0 240 120 0 Number 0 Bowel Movements Output, Urine 550 350 550 600 Patient 189 lb 189 lb 184 lb Weight Weight Bed scale Bed scale Estimated Measurement Method Physical Exam: NAD VS as above. Lungs: clear CV: no rub Abd: nontender Exts: no edema Neuro A&O, no asterixis. Current Medications: Current Medications Sig/Renu Start time Last Medication Dose Route Stop Time Status Admin Aspirin Buffered 81 MG DAILY 07/08 2024 AC 07/09 PO 1208 Dextrose/Sodium 1,000 ML ONCE ONE 07/10 0000 AC 07/10 Chloride IV 07/10 1959 0032 Dextrose/Sodium 1,000 ML Q20H 07/08 2100 DC 07/08 Chloride IV 2216 Finasteride 5 MG DAILY 07/10 0900 AC PO Heparin Sodium 5,000 UNIT Q8 07/08 1746 AC 07/10 (Porcine) SC 0552 Insulin Aspart 0 TIDAC 07/09 1700 AC 07/09 SC 1647 Insulin Human Regular 0 Q6 07/08 2359 DC 07/09 SC 0519 Metoclopramide HCl 5 MG Q12P PRN 07/08 2115 AC IV Metoprolol Succinate 50 MG DAILY 07/08 2023 AC 07/09 PO 1208 Pantoprazole Sodium 40 MG DAILY 07/09 0900 AC 07/09 IV 0815 Sodium Bicarbonate 650 MG BID 07/08 2100 AC 07/09 PO 2034 Tamsulosin HCl 0.4 MG DAILY 07/10 09 AC PO Results Pertinent Lab Results: Laboratory Tests 07/10 07/09 0655 1500 Chemistry Sodium (137 - 145 mmol/L) 139 Potassium (3.5 - 5.1 mmol/L) 4.9 Chloride (98 - 107 mmol/L) 116 H Carbon Dioxide (22 - 30 mmol/L) 17 L Anion Gap (5 - 16) 5 BUN (9 - 20 mg/dL) 53 H Creatinine (0.7 - 1.2 mg/dL) 2.6 H Estimated GFR (>60 ml/min) 24 L BUN/Creatinine Ratio (7 - 25 %) 20.4 Lactic Acid (0.7 - 2.1 mmol/L) 1.8 Magnesium (1.6 - 2.3 mg/dL) 2.0 Hematology CBC w Diff NO MAN DIFF REQ WBC (4.8 - 10.8 /CUMM) 7.5 RBC (4.70 - 6.10 /CUMM) 3.78 L Hgb (14.0 - 18.0 G/DL) 12.7 L Hct (42 - 52 %) 37.7 L MCV (80.0 - 94.0 FL) 99.7 H MCH (27.0 - 31.0 PG) 33.5 H MCHC (33.0 - 37.0 G/DL) 33.6 RDW (11.5 - 14.5 %) 15.0 H Plt Count (130 - 400 /CUMM) 174 MPV (7.4 - 10.4 FL) 8.3 Gran % (42.2 - 75.2 %) 70.2 Lymphocytes % (20.5 - 51.1 %) 17.0 L Monocytes % (1.7 - 9.3 %) 7.9 Eosinophils % (0 - 5 %) 4.1 Basophils % (0.0 - 2.0 %) 0.8 Absolute Granulocytes (1.4 - 6.5 /CUMM) 5.3 Absolute Lymphocytes (1.2 - 3.4 /CUMM) 1.3 Absolute Monocytes (0.10 - 0.60 /CUMM) 0.6 Absolute Eosinophils (0.0 - 0.7 /CUMM) 0.3 Absolute Basophils (0.0 - 0.2 /CUMM) 0.1 Serology Hepatitis A IgM Ab (NONREACTIVE) Pending Hep Bs Antigen (NONREACTIVE) Pending Hep B Core IgM Ab Conf (NONREACTIVE) Pending Hepatitis C Antibody (NONREACTIVE) Pending 07/09 07/08 0602 1930 Chemistry Sodium (137 - 145 mmol/L) 139 Potassium (3.5 - 5.1 mmol/L) 5.5 H Chloride (98 - 107 mmol/L) 116 H Carbon Dioxide (22 - 30 mmol/L) 15 L Anion Gap (5 - 16) 8 BUN (9 - 20 mg/dL) 61 H Creatinine (0.7 - 1.2 mg/dL) 3.0 H Estimated GFR (>60 ml/min) 20 L BUN/Creatinine Ratio (7 - 25 %) 20.3 Hemoglobin A1c (4.2 - 5.8 %) 6.4 H Magnesium (1.6 - 2.3 mg/dL) 2.2 Hematology CBC w Diff NO MAN DIFF REQ WBC (4.8 - 10.8 /CUMM) 8.1 RBC (4.70 - 6.10 /CUMM) 4.30 L Hgb (14.0 - 18.0 G/DL) 14.1 Hct (42 - 52 %) 42.4 MCV (80.0 - 94.0 FL) 98.7 H MCH (27.0 - 31.0 PG) 32.9 H MCHC (33.0 - 37.0 G/DL) 33.4 RDW (11.5 - 14.5 %) 15.0 H Plt Count (130 - 400 /CUMM) 206 MPV (7.4 - 10.4 FL) 8.4 Gran % (42.2 - 75.2 %) 75.9 H Lymphocytes % (20.5 - 51.1 %) 13.8 L Monocytes % (1.7 - 9.3 %) 7.9 Eosinophils % (0 - 5 %) 1.9 Basophils % (0.0 - 2.0 %) 0.5 Absolute Granulocytes (1.4 - 6.5 /CUMM) 6.1 Absolute Lymphocytes (1.2 - 3.4 /CUMM) 1.1 L Absolute Monocytes (0.10 - 0.60 /CUMM) 0.6 Absolute Eosinophils (0.0 - 0.7 /CUMM) 0.2 Absolute Basophils (0.0 - 0.2 /CUMM) 0 Urines Urine Color (YEL,AMB,STR) YEL Urine Clarity (CLEAR) CLEAR Urine pH (5.0 - 8.0) 6.0 Ur Specific [place] (1.001 - 1.035) 1.025 Urine Protein (NEG,<30 MG/DL) NEG Urine Ketones (NEG) NEG Urine Nitrite (NEG) NEG Urine Bilirubin (NEG) NEG Urine Urobilinogen (0.1 - 1.0 EU/dl) 0.2 Ur Leukocyte Esterase (NEG) NEG Ur Microscopic SEDIMENT EXAMINED Urine RBC (0 - 5 /HPF) 1-3 Ur Epithelial Cells (NONE,FEW) RARE Urine Bacteria (NEG/NONE) FEW H Urine Hemoglobin (NEG) MOD H Urine Glucose (N MG/DL) >=1000 H 07/08 07/08 07/08 07/08 1930 1759 1758 1758 Chemistry Sodium (137 - 145 mmol/L) Cancelled 138 Potassium (3.5 - 5.1 mmol/L) Cancelled 5.5 H Chloride (98 - 107 mmol/L) Cancelled 110 H Carbon Dioxide (22 - 30 mmol/L) Cancelled 15 L Anion Gap (5 - 16) Cancelled 13 BUN (9 - 20 mg/dL) Cancelled 65 H Creatinine (0.7 - 1.2 mg/dL) Cancelled 4.1 H Estimated GFR (>60 ml/min) 14 L BUN/Creatinine Ratio (7 - 25 %) Cancelled 15.9 Lactic Acid (0.7 - 2.1 mmol/L) 2.5 H Urines Ur Random Creatinine (mg/dL) 79.9 Ur Random Sodium (30 - 90 mmol/L) 51 Ur Random Potassium (mmol/L) 17.0 Fraction Sodium Excret (<1% %) 1.9 H 07/08 1505 Chemistry Sodium (137 - 145 mmol/L) 138 Potassium (3.5 - 5.1 mmol/L) 5.9 H Chloride (98 - 107 mmol/L) 109 H Carbon Dioxide (22 - 30 mmol/L) 12 L Anion Gap (5 - 16) 17 H BUN (9 - 20 mg/dL) 66 H Creatinine (0.7 - 1.2 mg/dL) 4.6 H Estimated GFR (>60 ml/min) 12 L BUN/Creatinine Ratio (7 - 25 %) 14.3 Glucose (65 - 99 mg/dL) 190 H Lactic Acid (0.7 - 2.1 mmol/L) 2.7 H Calcium (8.4 - 10.2 mg/dL) 10.2 Magnesium (1.6 - 2.3 mg/dL) 2.2 Total Bilirubin (0.2 - 1.3 mg/dL) 0.6 AST (17 - 59 U/L) 26 ALT (21 - 72 U/L) 20 L Alkaline Phosphatase (< 127 U/L) 87 Troponin I (<0.11 ng/ml) < 0.01 Total Protein (6.3 - 8.2 g/dL) 8.9 H Albumin (3.5 - 5.0 g/dL) 5.3 H Globulin (1.9 - 4.2 gm/dL) 3.6 Albumin/Globulin Ratio (1.1 - 2.2 %) 1.5 Amylase (30 - 110 U/L) 109 Lipase (23 - 300 U/L) 385 H Vitamin B12 (239 - 931 pg/mL) 252 Coagulation PT (9.4 - 12.5 SEC) 11.4 INR (0.90 - 1.17) 1.05 Hematology CBC w Diff NO MAN DIFF REQ WBC (4.8 - 10.8 /CUMM) 9.6 RBC (4.70 - 6.10 /CUMM) 4.70 Hgb (14.0 - 18.0 G/DL) 15.4 Hct (42 - 52 %) 46.2 MCV (80.0 - 94.0 FL) 98.2 H MCH (27.0 - 31.0 PG) 32.8 H MCHC (33.0 - 37.0 G/DL) 33.3 RDW (11.5 - 14.5 %) 15.3 H Plt Count (130 - 400 /CUMM) 261 MPV (7.4 - 10.4 FL) 8.0 Gran % (42.2 - 75.2 %) 82.2 H Lymphocytes % (20.5 - 51.1 %) 11.0 L Monocytes % (1.7 - 9.3 %) 4.8 Eosinophils % (0 - 5 %) 1.3 Basophils % (0.0 - 2.0 %) 0.7 Absolute Granulocytes (1.4 - 6.5 /CUMM) 7.9 H Absolute Lymphocytes (1.2 - 3.4 /CUMM) 1.1 L Absolute Monocytes (0.10 - 0.60 /CUMM) 0.5 Absolute Eosinophils (0.0 - 0.7 /CUMM) 0.1 Absolute Basophils (0.0 - 0.2 /CUMM) 0.1
--- NOTE | 2018-07-10 12:21 | PN- Cardiology ---
Subjective Subjective: Patient is resting comfortably. Denies any chest pain, dyspnea, or palpitations. Objective Vital Signs and I&Os Vital Signs Date Time Temp Pulse Resp B/P B/P Pulse O2 O2 Flow FiO2 Mean Ox Delivery Rate 07/10 0950 90 130/70 07/10 0950 90 130/70 07/10 0646 97.6 68 20 104/52 93 Room Air 07/09 2206 97.7 90 16 102/62 91 Room Air 07/09 2132 Room Air 07/09 1445 97.8 75 20 90/40 96 Room Air Intake & Output 07/10 1600 07/10 0800 07/10 0000 07/09 1600 07/09 0800 07/09 0000 Intake Total 600 240 400 120 Output Total 550 350 200 350 600 Balance 50 -110 -200 50 -480 Intake, IV 600 400 Intake, Oral 0 240 120 Number 0 Bowel Movements Output, Urine 550 350 200 350 600 Patient 189 lb 189 lb Weight Weight Bed scale Bed scale Measurement Method Physical Exam: General: no apparent distress. Alert. Eyes: No obvious scleral icterus. HEENT: No jugular venous distention or abnormal jugular venous pulsations. Cardiovascular: Normal intensity S1/S2. Regular Respiratory: Lungs clear to auscultation bilaterally. Abdomen: no guarding or rebound tenderness. Musculoskeletal: No clubbing or cyanosis noted Skin: warm Neurologic: No gross focal deficits noted. Current Medications: Current Medications Sig/Renu Start time Last Medication Dose Route Stop Time Status Admin Aspirin Buffered 81 MG DAILY 07/08 2024 AC 07/10 PO 0950 Cyanocobalamin 1,000 MCG Q30D 07/10 1200 AC IM Dextrose/Sodium 1,000 ML ONCE ONE 07/10 0000 AC 07/10 Chloride IV 07/10 1959 0032 Dextrose/Sodium 1,000 ML Q20H 07/08 2100 DC 07/08 Chloride IV 2216 Finasteride 5 MG DAILY 07/10 0900 AC 07/10 PO 0950 Heparin Sodium 5,000 UNIT Q8 07/08 1746 AC 07/10 (Porcine) SC 0552 Insulin Aspart 0 TIDAC 07/09 1700 AC 07/09 MT 1647 Insulin Human Regular 0 Q6 07/08 2359 DC 07/09 SC 0519 Metoclopramide HCl 5 MG Q12P PRN 07/08 2115 IV Metoprolol Succinate 50 MG DAILY 07/08 2023 AC 07/10 PO 0950 Pantoprazole Sodium 40 MG DAILY 07/09 09 AC 07/10 IV 0950 Sodium Bicarbonate 650 MG BID 07/08 2100 AC 07/10 PO 0950 Tamsulosin HCl 0.4 MG DAILY 07/10 09 AC 07/10 PO 0950 Results Last 48 Hrs of Labs/Mics: Laboratory Tests 07/10/18 0655: Anion Gap 5, Estimated GFR 24 L, BUN/Creatinine Ratio 20.4, Magnesium 2.0, CBC w Diff NO MAN DIFF REQ, RBC 3.78 L, MCV 99.7 H, MCH 33.5 H, MCHC 33.6, RDW 15.0 H, MPV 8.3, Gran % 70.2, Lymphocytes % 17.0 L, Monocytes % 7.9, Eosinophils % 4.1, Basophils % 0.8, Absolute Granulocytes 5.3, Absolute Lymphocytes 1.3, Absolute Monocytes 0.6, Absolute Eosinophils 0.3, Absolute Basophils 0.1, Hepatitis A IgM Ab NONREACTIVE, Hep Bs Antigen NONREACTIVE, Hep B Core IgM Ab Conf NONREACTIVE, Hepatitis C Antibody NONREACTIVE 07/09/18 1500: Lactic Acid 1.8 07/09/18 0655: Anion Gap 8, Estimated GFR 20 L, BUN/Creatinine Ratio 20.3, Hemoglobin A1c 6.4 H, Magnesium 2.2, CBC w Diff NO MAN DIFF REQ, RBC 4.30 L, MCV 98.7 H, MCH 32.9 H, MCHC 33.4, RDW 15.0 H, MPV 8.4, Gran % 75.9 H, Lymphocytes % 13.8 L, Monocytes % 7.9, Eosinophils % 1.9, Basophils % 0.5, Absolute Granulocytes 6.1, Absolute Lymphocytes 1.1 L, Absolute Monocytes 0.6, Absolute Eosinophils 0.2, Absolute Basophils 0 07/08/181929: Urine Color YEL, Urine Clarity CLEAR, Urine pH 6.0, Ur Specific [place] 1.025, Urine Protein NEG, Urine Ketones NEG, Urine Nitrite NEG, Urine Bilirubin NEG, Urine Urobilinogen 0.2, Ur Leukocyte Esterase NEG, Ur Microscopic SEDIMENT EXAMINED, Urine RBC 1-3, Ur Epithelial Cells RARE, Urine Bacteria FEW H, Urine Hemoglobin MOD H, Urine Glucose >=1000 H 07/08/181929: Ur Random Creatinine 79.9, Ur Random Sodium 51, Ur Random Potassium 17.0, Fraction Sodium Excret 1.9 H 07/08/18 175: Sodium Cancelled, Potassium Cancelled, Chloride Cancelled, Carbon Dioxide Cancelled, Anion Gap Cancelled, BUN Cancelled, Creatinine Cancelled, BUN/ Creatinine Ratio Cancelled 07/08/18 175: Lactic Acid 2.5 H 07/08/18 175: Anion Gap 13, Estimated GFR 14 L, BUN/Creatinine Ratio 15.9 07/08/18 1505: Anion Gap 17 H, Estimated GFR 12 L, BUN/Creatinine Ratio 14.3, Glucose 190 H, Lactic Acid 2.7 H, Calcium 10.2, Magnesium 2.2, Total Bilirubin 0.6, AST 26, ALT 20 L, Alkaline Phosphatase 87, Troponin I < 0.01, Total Protein 8.9 H, Albumin 5.3 H, Globulin 3.6, Albumin/Globulin Ratio 1.5, Amylase 109, Lipase 385 H, Vitamin B12 252, PT 11.4, INR 1.05, CBC w Diff NO MAN DIFF REQ, RBC 4.70 , MCV 98.2 H, MCH 32.8 H, MCHC 33.3, RDW 15.3 H, MPV 8.0, Gran % 82.2 H, Lymphocytes % 11.0 L, Monocytes % 4.8, Eosinophils % 1.3, Basophils % 0.7, Absolute Granulocytes 7.9 H, Absolute Lymphocytes 1.1 L, Absolute Monocytes 0.5, Absolute Eosinophils 0.1, Absolute Basophils 0.1 Microbiology 07/08 1930 URINE ROUT: Urine Culture - COMP Recent Imaging Studies: Telemetry tracings were personally reviewed and shows sinus rhythm with first- degree AV block and some artifact Abdominal ultrasound Enlarged echogenic liver likely hepatic steatosis. No focal liver lesion seen. Distended gallbladder but no echogenic stones. Small cyst lower pole right kidney. Assessment/Plan Assessment/Plan 1. History of paroxysmal SVT on outpatient flecainide 2. History of aortic regurgitation 3. Acute kidney injury with hyperkalemia, improving; likely due to volume depletion 4. History of right bundle branch block 5. ? Transient AIVR in the setting of flecainide use with acute kidney injury Patient is currently in sinus rhythm and hemodynamically stable. Would continue to hold his flecainide for now. His creatinine is improving. Would maintain him on telemetry for now. Agree with continuing his beta-calvin. Bryan Donahue MD [facility] Continue telemetry? Yes
--- NOTE | 2018-07-10 12:27 | MRI REPORT ---
EXAMINATION: MR ABDOMEN WITHOUT CONTRAST CLINICAL INFORMATION: 82-year-old male with dilated common bile duct. Abdominal pain. Evaluate for common duct stone. COMPARISON: CT chest, 12/15/2011. CT abdomen, 07/08/2018. Abdomen ultrasound, 07/09/2018. TECHNIQUE: Imaging evaluation of the abdomen was performed without contrast using standard magnetic resonance cholangiopancreatography sequences on a high-field 1.5 Ekta magnet. FINDINGS: Lung bases are unremarkable. No pericardial or pleural effusion. Liver has normal size and contour. Liver parenchyma exhibits slightly decreased signal intensity on the [id number] compared to in-phase T1-weighted gradient echo images, suggestive of mild steatosis. Gallbladder is hydropic and contains sludge and small layering calculi. No gallbladder wall edema or pericholecystic fluid. Intrahepatic bile ducts are chronically dilated; the intrahepatic ductal dilatation is worse compared to 12/15/2011. The intrahepatic ducts are suboptimally evaluated on motion degraded sequences. Possible sludge or calculi within some of the dilated left intrahepatic ducts. Common bile duct measures up to 2 cm AP diameter and contains multiple calculi. The distal CBD has normal caliber and smooth contour, measuring 0.5 cm diameter. Pancreas has normal signal intensity. No evidence of pancreatic mass, pancreatic divisum, pancreatic ductal dilatation or peripancreatic edema. Spleen is normal. Adrenal glands are normal. Mild atrophy of renal cortex, bilaterally. Nonspecific bilateral perinephric edema is present. Bilateral benign renal cortical cysts, largest on the left measuring up to 4.2 cm. Atherosclerotic abdominal aorta is normal in caliber. No pathologic sized periportal, mesenteric or retroperitoneal lymph nodes. Stomach is unremarkable. The visualized small and large bowel are normal in caliber. No suspicious osseous lesions. Multilevel degenerative arthropathy of the thoracolumbar spine. Within the lumbar spine, there is mild degenerative retrolisthesis at L3-L4 and mild anterolisthesis at L4-L5 and L5-S1. IMPRESSION: - Cholelithiasis without cholecystitis. - Dilatation of the proximal CBD and intrahepatic ducts has worsened compared to 12/15/2011. The proximal CBD measures up to 2 cm AP diameter and contains multiple calculi (i.e., choledocholithiasis). The distal segment of the CBD is normal and measures 0.5 cm diameter.
[2018-07-10 14:54] VITALS: BP 140/64
--- NOTE | 2018-07-10 18:59 | PN- Gastroenterology ---
Assessment/Plan GI Assessment/Recommendations: Abdominal pain and nausea, resolved. Choledocholithiasis without cholangitis; gallbladder hydrops. Recommendations * Nothing by mouth after midnight * ERCP tomorrow Subjective Subjective: No abdominal pain or nausea. Tolerating diet. Objective Vital Signs and I&Os Vital Signs Date Time Temp Pulse Resp B/P B/P Pulse O2 O2 Flow FiO2 Mean Ox Delivery Rate 07/10 1454 97.5 90 20 140/64 97 Room Air 07/10 0950 90 130/70 07/10 0950 90 130/70 07/10 0646 97.6 68 20 104/52 93 Room Air 07/09 2206 97.7 90 16 102/62 91 Room Air 07/09 2132 Room Air Intake & Output 07/10 1600 07/10 0400 07/09 1600 07/09 0400 07/08 1600 07/08 0400 Intake Total 1430 240 400 120 0 Output Total 1200 350 550 600 Balance 230 -110 -150 -480 0 Intake, IV 950 400 Intake, Oral 480 240 120 0 Number 0 Bowel Movements Output, Urine 1200 350 550 600 Patient 189 lb 189 lb 184 lb Weight Weight Bed scale Bed scale Estimated Measurement Method Physical Exam: Alert and oriented. Sclera anicteric. Abdomen nontender. Current Medications: Current Medications Sig/Renu Start time Last Medication Dose Route Stop Time Status Admin Aspirin Buffered 81 MG DAILY 07/08 2024 AC 07/10 PO 0950 Cyanocobalamin 1,000 MCG Q30D 07/10 1200 AC 07/10 IM 1302 Dextrose/Sodium 1,000 ML Q20H 07/10 1500 AC 07/10 Chloride IV 1552 Dextrose/Sodium 1,000 ML ONCE ONE 07/10 0000 AC 07/10 Chloride IV 07/10 1959 0032 Finasteride 5 MG DAILY 07/10 0900 AC 07/10 PO 0950 Heparin Sodium 5,000 UNIT Q8 07/08 1746 DC 07/10 (Porcine) SC 1302 Insulin Aspart 0 TIDAC 07/09 1700 AC 07/10 SC 1655 Metoclopramide HCl 5 MG Q12P PRN 07/08 2115 AC IV Metoprolol Succinate 50 MG DAILY 07/08 2023 AC 07/10 PO 0950 Pantoprazole Sodium 40 MG DAILY 07/09 0900 AC 07/10 IV 0950 Polyethylene Glycol 17 GM DAILY 07/10 174 AC PO Senna/Docusate Sodium 2 TAB DAILY PRN 07/10 1800 AC PO Sodium Bicarbonate 650 MG BID 07/08 2100 AC 07/10 PO 0950 Tamsulosin HCl 0.4 MG DAILY 07/10 0900 AC 07/10 PO 0950 Results Pertinent Lab Results: Laboratory Tests 07/10 07/09 0655 1500 Chemistry Sodium (137 - 145 mmol/L) 139 Potassium (3.5 - 5.1 mmol/L) 4.9 Chloride (98 - 107 mmol/L) 116 H Carbon Dioxide (22 - 30 mmol/L) 17 L Anion Gap (5 - 16) 5 BUN (9 - 20 mg/dL) 53 H Creatinine (0.7 - 1.2 mg/dL) 2.6 H Estimated GFR (>60 ml/min) 24 L BUN/Creatinine Ratio (7 - 25 %) 20.4 Lactic Acid (0.7 - 2.1 mmol/L) 1.8 Magnesium (1.6 - 2.3 mg/dL) 2.0 Hematology CBC w Diff NO MAN DIFF REQ WBC (4.8 - 10.8 /CUMM) 7.5 RBC (4.70 - 6.10 /CUMM) 3.78 L Hgb (14.0 - 18.0 G/DL) 12.7 L Hct (42 - 52 %) 37.7 L MCV (80.0 - 94.0 FL) 99.7 H MCH (27.0 - 31.0 PG) 33.5 H MCHC (33.0 - 37.0 G/DL) 33.6 RDW (11.5 - 14.5 %) 15.0 H Plt Count (130 - 400 /CUMM) 174 MPV (7.4 - 10.4 FL) 8.3 Gran % (42.2 - 75.2 %) 70.2 Lymphocytes % (20.5 - 51.1 %) 17.0 L Monocytes % (1.7 - 9.3 %) 7.9 Eosinophils % (0 - 5 %) 4.1 Basophils % (0.0 - 2.0 %) 0.8 Absolute Granulocytes (1.4 - 6.5 /CUMM) 5.3 Absolute Lymphocytes (1.2 - 3.4 /CUMM) 1.3 Absolute Monocytes (0.10 - 0.60 /CUMM) 0.6 Absolute Eosinophils (0.0 - 0.7 /CUMM) 0.3 Absolute Basophils (0.0 - 0.2 /CUMM) 0.1 Serology Hepatitis A IgM Ab (NONREACTIVE) NONREACTIVE Hep Bs Antigen (NONREACTIVE) NONREACTIVE Hep B Core IgM Ab Conf (NONREACTIVE) NONREACTIVE Hepatitis C Antibody (NONREACTIVE) NONREACTIVE 07/09 07/08 0655 1930 Chemistry Sodium (137 - 145 mmol/L) 139 Potassium (3.5 - 5.1 mmol/L) 5.5 H Chloride (98 - 107 mmol/L) 116 H Carbon Dioxide (22 - 30 mmol/L) 15 L Anion Gap (5 - 16) 8 BUN (9 - 20 mg/dL) 61 H Creatinine (0.7 - 1.2 mg/dL) 3.0 H Estimated GFR (>60 ml/min) 20 L BUN/Creatinine Ratio (7 - 25 %) 20.3 Hemoglobin A1c (4.2 - 5.8 %) 6.4 H Magnesium (1.6 - 2.3 mg/dL) 2.2 Hematology CBC w Diff NO MAN DIFF REQ WBC (4.8 - 10.8 /CUMM) 8.1 RBC (4.70 - 6.10 /CUMM) 4.30 L Hgb (14.0 - 18.0 G/DL) 14.1 Hct (42 - 52 %) 42.4 MCV (80.0 - 94.0 FL) 98.7 H MCH (27.0 - 31.0 PG) 32.9 H MCHC (33.0 - 37.0 G/DL) 33.4 RDW (11.5 - 14.5 %) 15.0 H Plt Count (130 - 400 /CUMM) 206 MPV (7.4 - 10.4 FL) 8.4 Gran % (42.2 - 75.2 %) 75.9 H Lymphocytes % (20.5 - 51.1 %) 13.8 L Monocytes % (1.7 - 9.3 %) 7.9 Eosinophils % (0 - 5 %) 1.9 Basophils % (0.0 - 2.0 %) 0.5 Absolute Granulocytes (1.4 - 6.5 /CUMM) 6.1 Absolute Lymphocytes (1.2 - 3.4 /CUMM) 1.1 L Absolute Monocytes (0.10 - 0.60 /CUMM) 0.6 Absolute Eosinophils (0.0 - 0.7 /CUMM) 0.2 Absolute Basophils (0.0 - 0.2 /CUMM) 0 Urines Urine Color (YEL,AMB,STR) YEL Urine Clarity (CLEAR) CLEAR Urine pH (5.0 - 8.0) 6.0 Ur Specific [place] (1.001 - 1.035) 1.025 Urine Protein (NEG,<30 MG/DL) NEG Urine Ketones (NEG) NEG Urine Nitrite (NEG) NEG Urine Bilirubin (NEG) NEG Urine Urobilinogen (0.1 - 1.0 EU/dl) 0.2 Ur Leukocyte Esterase (NEG) NEG Ur Microscopic SEDIMENT EXAMINED Urine RBC (0 - 5 /HPF) 1-3 Ur Epithelial Cells (NONE,FEW) RARE Urine Bacteria (NEG/NONE) FEW H Urine Hemoglobin (NEG) MOD H Urine Glucose (N MG/DL) >=1000 H 07/08 07/08 07/08 07/08 1930 1759 1758 1758 Chemistry Sodium (137 - 145 mmol/L) Cancelled 138 Potassium (3.5 - 5.1 mmol/L) Cancelled 5.5 H Chloride (98 - 107 mmol/L) Cancelled 110 H Carbon Dioxide (22 - 30 mmol/L) Cancelled 15 L Anion Gap (5 - 16) Cancelled 13 BUN (9 - 20 mg/dL) Cancelled 65 H Creatinine (0.7 - 1.2 mg/dL) Cancelled 4.1 H Estimated GFR (>60 ml/min) 14 L BUN/Creatinine Ratio (7 - 25 %) Cancelled 15.9 Lactic Acid (0.7 - 2.1 mmol/L) 2.5 H Urines Ur Random Creatinine (mg/dL) 79.9 Ur Random Sodium (30 - 90 mmol/L) 51 Ur Random Potassium (mmol/L) 17.0 Fraction Sodium Excret (<1% %) 1.9 H 07/08 1505 Chemistry Sodium (137 - 145 mmol/L) 138 Potassium (3.5 - 5.1 mmol/L) 5.9 H Chloride (98 - 107 mmol/L) 109 H Carbon Dioxide (22 - 30 mmol/L) 12 L Anion Gap (5 - 16) 17 H BUN (9 - 20 mg/dL) 66 H Creatinine (0.7 - 1.2 mg/dL) 4.6 H Estimated GFR (>60 ml/min) 12 L BUN/Creatinine Ratio (7 - 25 %) 14.3 Glucose (65 - 99 mg/dL) 190 H Lactic Acid (0.7 - 2.1 mmol/L) 2.7 H Calcium (8.4 - 10.2 mg/dL) 10.2 Magnesium (1.6 - 2.3 mg/dL) 2.2 Total Bilirubin (0.2 - 1.3 mg/dL) 0.6 AST (17 - 59 U/L) 26 ALT (21 - 72 U/L) 20 L Alkaline Phosphatase (< 127 U/L) 87 Troponin I (<0.11 ng/ml) < 0.01 Total Protein (6.3 - 8.2 g/dL) 8.9 H Albumin (3.5 - 5.0 g/dL) 5.3 H Globulin (1.9 - 4.2 gm/dL) 3.6 Albumin/Globulin Ratio (1.1 - 2.2 %) 1.5 Amylase (30 - 110 U/L) 109 Lipase (23 - 300 U/L) 385 H Vitamin B12 (239 - 931 pg/mL) 252 Coagulation PT (9.4 - 12.5 SEC) 11.4 INR (0.90 - 1.17) 1.05 Hematology CBC w Diff NO MAN DIFF REQ WBC (4.8 - 10.8 /CUMM) 9.6 RBC (4.70 - 6.10 /CUMM) 4.70 Hgb (14.0 - 18.0 G/DL) 15.4 Hct (42 - 52 %) 46.2 MCV (80.0 - 94.0 FL) 98.2 H MCH (27.0 - 31.0 PG) 32.8 H MCHC (33.0 - 37.0 G/DL) 33.3 RDW (11.5 - 14.5 %) 15.3 H Plt Count (130 - 400 /CUMM) 261 MPV (7.4 - 10.4 FL) 8.0 Gran % (42.2 - 75.2 %) 82.2 H Lymphocytes % (20.5 - 51.1 %) 11.0 L Monocytes % (1.7 - 9.3 %) 4.8 Eosinophils % (0 - 5 %) 1.3 Basophils % (0.0 - 2.0 %) 0.7 Absolute Granulocytes (1.4 - 6.5 /CUMM) 7.9 H Absolute Lymphocytes (1.2 - 3.4 /CUMM) 1.1 L Absolute Monocytes (0.10 - 0.60 /CUMM) 0.5 Absolute Eosinophils (0.0 - 0.7 /CUMM) 0.1 Absolute Basophils (0.0 - 0.2 /CUMM) 0.1 Imaging/Other Studies: MRCP demonstrates biliary dilatation with choledocholithiasis. Normal pancreas.
[2018-07-10 22:30] VITALS: BP 110/50
[2018-07-11 06:00] VITALS: BP 132/62
[2018-07-11 08:14] LABS: ABSOLUTE BASOPHIL COUNT 0 /CUMM (0.0-0.2); ABSOLUTE EOSINOPHIL COUNT 0.3 /CUMM (0.0-0.7); ABSOLUTE GRANULOCYTE CT 3.8 /CUMM (1.4-6.5); ABSOLUTE LYMPH COUNT 1.6 /CUMM (1.2-3.4); ABSOLUTE MONOCYTE COUNT 0.5 /CUMM (0.10-0.60); BASOPHIL % 0.6 % (0.0-2.0); EOSINOPHIL % 5.3 % (0-5); GRANULOCYTE % 61.4 % (42.2-75.2); HEMATOCRIT 35.6 % (42-52); MEAN CORPUSCULAR HGB 33.3 PG (27.0-31.0); MEAN CORPUSCULAR HGB CONC 33.8 G/DL (33.0-37.0); MEAN CORPUSCULAR VOLUME 98.6 FL (80.0-94.0); MEAN PLATELET VOLUME 8.5 FL (7.4-10.4); PLATELET COUNT 182 /CUMM (130-400); RBC DISTRIBUTION WIDTH 15.2 % (11.5-14.5); RED BLOOD CELL CT 3.61 /CUMM (4.70-6.10); WHITE BLOOD CELL COUNT 6.2 /CUMM (4.8-10.8)
[2018-07-11 08:16] LABS: PT 11.7 SEC (9.4-12.5); PTT 31 SEC (25-37)
--- NOTE | 2018-07-11 11:21 | PN- Cardiology ---
Subjective Subjective: The patient is awake, alert The events of the last 24 hours as well as telemetry were reviewed. Review of Systems: The review of systems is negative for chest pains, palpitations nor lightheadedness. The remainder of the 14 point review of systems is noncontributory with the exception of above. Objective Vital Signs and I&Os Vital Signs Date Time Temp Pulse Resp B/P B/P Pulse O2 O2 Flow FiO2 Mean Ox Delivery Rate 07/11 1110 88 150/70 07/11 1110 88 150/70 07/11 0600 97.7 71 18 132/62 96 Room Air 07/10 2230 97.6 75 18 110/50 94 Room Air 07/10 2200 Room Air 07/10 1454 97.5 90 20 140/64 97 Room Air Intake & Output 07/11 1600 07/11 0807/11 0000 07/10 1600 07/10 0800 07/10 0000 Intake Total 400 200 830 600 240 Output Total 550 650 550 350 Balance 400 -350 180 50 -110 Intake, IV 400 200 350 600 Intake, Oral 480 0 240 Number 0 Bowel Movements Output, Urine 550 650 550 350 Patient 191 lb 189 lb Weight Weight Bed scale Bed scale Measurement Method Physical Exam: General: Nontoxic, no apparent distress. HEENT: Sclera and conjunctiva within normal limits, without xanthelasmas. Neck: Carotids 2+ without bruits. Respiratory: Scattered rhonchi, air movement is good, without accessory respiratory muscle use. Heart: Regular rate and rhythm, without murmurs, without JVD. Abdomen: Soft, nontender, no masses, normoactive bowel sounds. Extremities: Without clubbing, cyanosis, without edema. Neuro: Nonfocal exam, strength, 5 out of 5 Skin: Within normal limits without lesions. Psych: Mood and affect: Normal Current Medications: Current Medications Sig/Renu Start time Last Medication Dose Route Stop Time Status Admin Aspirin Buffered 81 MG DAILY 07/08 2024 AC 07/11 PO 1110 Bisacodyl 10 MG ONCE ONE 07/11 0800 DC 07/11 ND 07/11 0801 0851 Cyanocobalamin 1,000 MCG Q30D 07/10 1200 AC 07/10 IM 1302 Dextrose/Sodium 1,000 ML Q20H 07/10 1500 DC 07/10 Chloride IV 1552 Dextrose/Sodium 1,000 ML ONCE ONE 07/10 0000 DC 07/10 Chloride IV 07/10 1959 0032 Finasteride 5 MG DAILY 07/10 0900 AC 07/11 PO 1110 Heparin Sodium 5,000 UNIT Q8 07/08 1746 DC 07/10 (Porcine) SC 1302 Insulin Aspart 0 TIDAC 07/11 1200 AC SC Insulin Aspart 0 TIDAC 07/09 1700 DC 07/10 SC 1655 Insulin Human Regular 0 TIDAC 07/11 0800 DC SC Metoclopramide HCl 5 MG Q12P PRN 07/08 2115 AC IV Metoprolol Succinate 50 MG DAILY 07/08 202 AC 07/11 PO 1110 Omeprazole 20 MG DAILY AC 07/11 0837 AC 07/11 PO 1110 Pantoprazole Sodium 40 MG DAILY 07/09 0900 DC 07/10 IV 0950 Polyethylene Glycol 17 GM DAILY 07/10 1747 AC 07/11 PO 1110 Senna/Docusate Sodium 2 TAB DAILY PRN 07/10 1800 AC 07/10 PO 1958 Sodium Bicarbonate 650 MG BID 07/08 2100 AC 07/11 PO 1110 Tamsulosin HCl 0.4 MG DAILY 07/10 0900 AC 07/11 PO 1110 Results Last 48 Hrs of Labs/Mics: Laboratory Tests 07/11/18 0620: Anion Gap 6, Estimated GFR 36 L, BUN/Creatinine Ratio 23.3, Magnesium 1.8, PT 11.7, INR 1.07, APTT 31, CBC w Diff NO MAN DIFF REQ, RBC 3.61 L, MCV 98.6 H, MCH 33.3 H, MCHC 33.8, RDW 15.2 H, MPV 8.5, Gran % 61.4, Lymphocytes % 25.2, Monocytes % 7.5, Eosinophils % 5.3 H, Basophils % 0.6, Absolute Granulocytes 3.8, Absolute Lymphocytes 1.6, Absolute Monocytes 0.5, Absolute Eosinophils 0.3, Absolute Basophils 0 07/10/18 0655: Anion Gap 5, Estimated GFR 24 L, BUN/Creatinine Ratio 20.4, Magnesium 2.0, CBC w Diff NO MAN DIFF REQ, RBC 3.78 L, MCV 99.7 H, MCH 33.5 H, MCHC 33.6, RDW 15.0 H, MPV 8.3, Gran % 70.2, Lymphocytes % 17.0 L, Monocytes % 7.9, Eosinophils % 4.1, Basophils % 0.8, Absolute Granulocytes 5.3, Absolute Lymphocytes 1.3, Absolute Monocytes 0.6, Absolute Eosinophils 0.3, Absolute Basophils 0.1, Hepatitis A IgM Ab NONREACTIVE, Hep Bs Antigen NONREACTIVE, Hep B Core IgM Ab Conf NONREACTIVE, Hepatitis C Antibody NONREACTIVE 07/09/18 1500: Lactic Acid 1.8 Assessment/Plan Assessment/Plan 1. History of paroxysmal SVT on outpatient flecainide 2. History of aortic regurgitation 3. Acute kidney injury with hyperkalemia, improving; likely due to volume depletion 4. History of right bundle branch block 5. ? Transient AIVR in the setting of flecainide use with acute kidney injury We will continue his current medication regimen in the setting of improved renal function. Metoprolol will be titrated up as tolerated, and he will remain off of flecainide for now. Continue telemetry? Yes
--- NOTE | 2018-07-11 11:46 | PN- Att Addend ---
Attending MD Review Statement Attending Statement Attending MD Statement: examined this patient, discuss w/resident/PA/SALES REPRESENTATIVE DOOR TO DOOR, agreed w/resident/PA/SALES REPRESENTATIVE DOOR TO DOOR, reviewed EMR data (avail), discussed w/nursing, discussed w/ case mgmt Attending Assessment/Plan: Laboratory Tests 07/11/18 0620: Anion Gap 6, Estimated GFR 36 L, BUN/Creatinine Ratio 23.3, Magnesium 1.8, PT 11.7, INR 1.07, APTT 31, CBC w Diff NO MAN DIFF REQ, RBC 3.61 L, MCV 98.6 H, MCH 33.3 H, MCHC 33.8, RDW 15.2 H, MPV 8.5, Gran % 61.4, Lymphocytes % 25.2, Monocytes % 7.5, Eosinophils % 5.3 H, Basophils % 0.6, Absolute Granulocytes 3.8, Absolute Lymphocytes 1.6, Absolute Monocytes 0.5, Absolute Eosinophils 0.3, Absolute Basophils 0 Vital Signs Date Time Temp Pulse Resp B/P B/P Pulse O2 O2 Flow FiO2 Mean Ox Delivery Rate 07/11 1110 88 150/70 07/11 1110 88 150/70 07/11 0600 97.7 71 18 132/62 96 Room Air 07/10 2230 97.6 75 18 110/50 94 Room Air 07/10 2200 Room Air 07/10 1454 97.5 90 20 140/64 97 Room Air Acute kidney injury-resolving now with creatinine down to 1.8 today. Could be secondary to worsening BPH as well as the from one of the new diabetic medication that the patient was on. BPH- patient started on finasteride and Flomax. Will dc coronel today and do the voiding trial . Hyperkalemia and constipation- will give kayxelate one dose today and see how he does. Arrhythmia at admission secondary to flecanide toxicity- seen by cardiology and Flecanide was stopped. Discussed with cardiology. Continue to monitor on telemetry for now. Cardiology consult appreciated. Abdominal pain with ultrasound showing intrahepatic biliary dilation- MRCP was done today and showed choledocholithiasis. GI input appreciated and plan to do ERCP maybe on . d/w pt the care plan.
--- NOTE | 2018-07-11 12:25 | PN- Housestaff ---
Subjective Follow-up For: Acute kidney injury secondary to dehydration because of the Farxiga/Digliflozin Complaints: no complaints Tele-Events Since Last Visit: no any new events Subjective: Patient is seen and examined at the bedside. He does not have any active complaints. His creatinine improved to 1.8 and after that we decided to remove the Puente catheter. He was having hematuria after we remove the Puente catheter. His platelet count has been improved. Review of Systems Constitutional: Denies: no symptoms. Objective Last 24 Hrs of Vital Signs/I&O Vital Signs Date Time Temp Pulse Resp B/P B/P Pulse O2 O2 Flow FiO2 Mean Ox Delivery Rate 07/11 1448 98.2 80 18 130/60 92 Room Air 07/11 1110 88 150/70 07/11 1110 88 150/70 07/11 0600 97.7 71 18 132/62 96 Room Air 07/10 2230 97.6 75 18 110/50 94 Room Air 07/10 2200 Room Air Intake & Output 07/11 1600 07/11 0800 07/11 0000 Intake Total 600 400 200 Output Total 1100 550 Balance -500 400 -350 Intake, IV 400 200 Intake, Oral 600 Output, Urine 1100 550 Patient 86.806 kg Weight Weight Bed scale Measurement Method Physical Exam General Appearance: Alert, Oriented X3, Cooperative, No Acute Distress Cardiovascular: Normal S1, Normal S2 Lungs: Clear to Auscultation, Normal Air Movement Abdomen: Soft, No Tenderness Extremities: No Clubbing, No Cyanosis, No Edema Vascular: Normal Pulses, Pulses Symmetrical Assessment/Plan Assessment: Patient is an 82-year-old male presented with a chief complaints of abdominal pain, sent by the urgent care for evaluation. Past medical history- * History of SVT 2007, converted to normal sinus rhythm by Dr. Jaime; currently on flecainide and metoprolol and following Dr Perry * Right bundle branch block * Hypertension * Hyperlipidemia * Type 2 diabetes * GERD * History of polyps * History of diverticulosis * History of GI bleed Vital signs-temperature 98.2, pulse 80, respiratory rate 18, blood pressure 130/ 60, SPO2 92% on room air. Blood workup-WBC 6.2, RBC 2.61, hemoglobin 12.0, hematocrit 35.6, MCV 98.6, platelet count 182, potassium 5.2, chloride 115, carbon dioxide 18, anion gap 6, BUN 42, creatinine 1.8, GFR 36, magnesium 1.8, MRCP- - Cholelithiasis without cholecystitis. - Dilatation of the proximal CBD and intrahepatic ducts has worsened compared to 12/15/2011. The proximal CBD measures up to 2 cm AP diameter and contains multiple calculi (i.e., choledocholithiasis). The distal segment of the CBD is normal and measures 0.5 cm diameter. Assessment and plan- * His creatinine is improving; We stopped IV fluid and remove the Puente catheter. He started having hematuria after removing the Puente catheter. Will watch for it * We will continue patient on Flomax and tamsulosin. * Dr. Hall does not wanted to do ERCP for today but will wait for his recommendation for further Evaluation and management of choledocholithiasis. * Discussed with the dry wall installations mechanic advised to continue to hold flecainide until patient's renal function improved. * Diet-consistent carbohydrate diet. * CODE STATUS-DNR/DNI * DVT prophylaxis -his platelet count has been improved, we will continue to hold DVT prophylaxis and watch for the platelet tomorrow. Problem List: 1. Type 2 diabetes mellitus 2. Metabolic acidosis 3. Hyperkalemia Pain Ratin Pain Location: n/a Pain Goal: Remain pain free Pain Plan: n/a Tomorrow's Labs & Rationales: f/u CBC,BEP, Mag DVT/Prophylaxis: mechanical
--- NOTE | 2018-07-11 14:00 | Discharge Summary ---
Visit Information Visit Dates Admission Date: 07/08/18 Discharge Date: 07/14/18 Hospital Course Course Attending Physician: Ami Malin MD Primary Care Physician: Kyree Daniel MD Hospital Course: Hyperkalemia,High anion gap metabolic acidosis secondary to EVELYN on CKD ; with BPH; diabetic nephropathy Idioventricular rhythm on EKG because of flecainide toxicity -because of EVELYN Intra-and extrahepatic biliary dilatation due to gallbladder and CBD stone History of fall, unstablility; due to B12 deficiency Allergies: Coded Allergies: NO KNOWN ALLERGIES (07/08/18) Disposition Summary Disposition Principal Diagnosis: Hyperkalemia,High anion gap metabolic acidosis secondary to EVELYN on CKD ; with BPH; diabetic nephropathy Idioventricular rhythm on EKG because of flecainide toxicity -because of EVELYN Intra-and extrahepatic biliary dilatation due to gallbladder and CBD stone History of fall, unstablility; due to B12 deficiency Additional Diagnosis: Hypertension, Hyperlipidemia, Gout Discharge Disposition: home or self care Discharge Instructions General Discharge Information Code Status: Do Not Resucitate/Intubat Patient's Diet: Carbohydrate type II diet Patient's Activity: As tolerated, take all fall precautions Follow-Up Instructions/Appts: Please follow-up with your primary care provider within a week of discharge. Please follow-up with the process engineering manager within a month of discharge. Please follow-up with your heavy duty mechanic within a month of discharge. Please discuss with your primary care provider regarding rechecking the renal function, with thinking about starting oral anti-diabetic medication, further follow-up regarding CBD stones. You may need to follow-up with the agricultural consultant for further management of CBD stone. Medications at Discharge Discharge Medications: Stop taking the following medications: Flecainide Acetate (Flecainide Acetate) 100 MG TABLET ORAL TWICE DAILY Qty = 180 Dapagliflozin Propanediol (Farxiga) 5 MG TABLET ORAL DAILY Qty = 90 Lisinopril (Lisinopril) 20 MG TABLET ORAL DAILY Qty = 90 Metoprolol Succinate (Metoprolol Succinate) 50 MG TAB.ER.24H ORAL DAILY Qty = 90 Continue taking these medications: Ezetimibe/Simvastatin (Vytorin 10-20 MG Tablet) 10 MG-20 MG TABLET 1 Tablet ORAL DAILY Qty = 90 Comments: NOT TAKEN WHILE IN HOSPITAL Allopurinol (Allopurinol) 300 MG TABLET 1 Tablet ORAL DAILY Qty = 90 Comments: Last Taken: 07/14/18 Time: 0800 AM Aspirin (Ecotrin*) 81 MG TABLET. 1 Tablet ORAL DAILY Comments: Last Taken: 07/14/18 Time: 0800 AM Start taking the following new medications: Ciprofloxacin HCl (Cipro) 500 MG TABLET 500 Milligram ORAL 0600,1800 Qty = 12 No Refills Comments: Last Taken: 07/14/18 Time: 0630 AM Cyanocobalamin (Vitamin B-12) (Cyanocobalamin Injection) 1,000 MCG/ML VIAL 1,000 Microgram INTRAMUSC Once a Week Qty = 7 No Refills Comments: Last Taken: 07/14/18 Time: 1200 PM Metoprolol Succ XL (Toprol Xl) 50 MG TAB 75 Milligram ORAL DAILY Qty = 30 No Refills Instructions: . Comments: Last Taken: 07/14/18 Time: 0800 AM Polyethylene Glycol 3350 (Miralax) 17 GRAM/DOSE POWDER 17 Gram ORAL DAILY as needed for CONSTIPATION Qty = 30 No Refills Instructions: . Comments: Last Taken: 07/14/18 Time: 0800 AM Sennosides/Docusate Sodium (Senna Plus Tablet) 8.6 MG-50 MG TABLET 2 Tablet ORAL DAILY as needed for CONSTIPATION Qty = 30 No Refills Instructions: . Comments: Last Taken: 07/12/18 Time: 0900 AM Omeprazole (Omeprazole) 20 MG CAPSULE. 20 Milligram ORAL DAILY BEFORE BREAKFAST Qty = 30 No Refills Instructions: . Comments: Last Taken: 07/14/18 Time: 0630 AM Finasteride (Finasteride) 5 MG TABLET 5 Milligram ORAL DAILY Qty = 30 No Refills Instructions: . Comments: Last Taken: 07/14/18 Time: 0800 AM Metformin HCl (Metformin HCl ER) 1,000 MG TAB.ER.24 1 Tablet ORAL TWICE DAILY Qty = 60 No Refills Comments: NOT GIVEN WHILE IN HOSPITAL Copies To: Roma WELCH,Slava Hamilton; Fredy WELCH,Kyree Ziegler MD Review Statement Documenting Attending: Dea WELCH,Ami Griggs
[2018-07-11 14:48] VITALS: BP 130/60
--- NOTE | 2018-07-11 17:53 | PN- Gastroenterology ---
Assessment/Plan GI Assessment/Recommendations: Abdominal pain and nausea, resolved. Choledocholithiasis without cholangitis; gallbladder hydrops. Review of MRCP demonstrates a complex process including numerous small stones in the mid CBD as well as several approximately 1.5 cm centimeters sounds more proximal, and a area of saccular dilatation. There is more distal CBD narrowing. ERCP was delayed for logistical purposes. Recommendations * ERCP will be performed on . Please make nothing by mouth after midnight tomorrow. Subjective Subjective: No abdominal pain or nausea. No fever. Tolerating diet. Hematuria following removal of Puente catheter. Objective Vital Signs and I&Os Vital Signs Date Time Temp Pulse Resp B/P B/P Pulse O2 O2 Flow FiO2 Mean Ox Delivery Rate 07/11 1448 98.2 80 18 130/60 92 Room Air 07/11 1110 88 150/70 07/11 1110 88 150/70 07/11 0600 97.7 71 18 132/62 96 Room Air 07/10 2230 97.6 75 18 110/50 94 Room Air 07/10 2200 Room Air Intake & Output 07/11 1600 07/11 0400 07/10 1600 07/10 0400 07/09 1600 07/09 0400 Intake Total 5207 819 7671 240 400 120 Output Total 8665 483 1226 350 550 600 Balance -100 -350 230 -110 -150 -480 Intake, IV 400 200 950 400 Intake, Oral 600 480 240 120 Number 0 Bowel Movements Output, Urine 3875 978 6123 350 550 600 Patient 191 lb 189 lb 189 lb Weight Weight Bed scale Bed scale Bed scale Measurement Method Physical Exam: Alert and oriented. Sclera anicteric. Abdomen soft, nondistended, nontender. Current Medications: Current Medications Sig/Renu Start time Last Medication Dose Route Stop Time Status Admin Aspirin Buffered 81 MG DAILY 07/08 2024 AC 07/11 PO 1110 Bisacodyl 10 MG ONCE ONE 07/11 0800 DC 07/11 GA 07/11 0801 0851 Cyanocobalamin 1,000 MCG Q30D 07/10 1200 AC 07/10 IM 1302 Dextrose/Sodium 1,000 ML Q20H 07/10 1500 DC 07/10 Chloride IV 1552 Dextrose/Sodium 1,000 ML ONCE ONE 07/10 0000 DC 07/10 Chloride IV 07/10 1959 0032 Finasteride 5 MG DAILY 07/10 0900 AC 07/11 PO 1110 Insulin Aspart 0 TIDAC 07/11 1200 AC 07/11 SC 1255 Insulin Aspart 0 TIDAC 07/09 1700 DC 07/10 SC 1655 Insulin Human Regular 0 TIDAC 07/11 0800 DC SC Metoclopramide HCl 5 MG Q12P PRN 07/08 2115 AC IV Metoprolol Succinate 50 MG DAILY 07/08 2023 AC 07/11 PO 1110 Omeprazole 20 MG DAILY AC 07/11 0837 AC 07/11 PO 1110 Pantoprazole Sodium 40 MG DAILY 07/09 0900 DC 07/10 IV 0950 Polyethylene Glycol 17 GM DAILY 07/10 1747 AC 07/11 PO 1110 Senna/Docusate Sodium 2 TAB DAILY PRN 07/10 1800 AC 07/10 PO 1958 Sodium Bicarbonate 650 MG BID 07/08 2100 AC 07/11 PO 1110 Sodium Polystyrene 60 ML ONCE ONE 07/11 174 DC Sulfonate PO 07/11 174 Tamsulosin HCl 0.4 MG DAILY 07/10 09 AC 07/11 PO 1110 Results Pertinent Lab Results: Laboratory Tests 07/11 07/10 0620 0655 Chemistry Sodium (137 - 145 mmol/L) 139 139 Potassium (3.5 - 5.1 mmol/L) 5.2 H 4.9 Chloride (98 - 107 mmol/L) 115 H 116 H Carbon Dioxide (22 - 30 mmol/L) 18 L 17 L Anion Gap (5 - 16) 6 5 BUN (9 - 20 mg/dL) 42 H 53 H Creatinine (0.7 - 1.2 mg/dL) 1.8 H 2.6 H Estimated GFR (>60 ml/min) 36 L 24 L BUN/Creatinine Ratio (7 - 25 %) 23.3 20.4 Magnesium (1.6 - 2.3 mg/dL) 1.8 2.0 Coagulation PT (9.4 - 12.5 SEC) 11.7 INR (0.90 - 1.17) 1.07 APTT (25 - 37 SEC) 31 Hematology CBC w Diff NO MAN DIFF REQ NO MAN DIFF REQ WBC (4.8 - 10.8 /CUMM) 6.2 7.5 RBC (4.70 - 6.10 /CUMM) 3.61 L 3.78 L Hgb (14.0 - 18.0 G/DL) 12.0 L 12.7 L Hct (42 - 52 %) 35.6 L 37.7 L MCV (80.0 - 94.0 FL) 98.6 H 99.7 H MCH (27.0 - 31.0 PG) 33.3 H 33.5 H MCHC (33.0 - 37.0 G/DL) 33.8 33.6 RDW (11.5 - 14.5 %) 15.2 H 15.0 H Plt Count (130 - 400 /CUMM) 182 174 MPV (7.4 - 10.4 FL) 8.5 8.3 Gran % (42.2 - 75.2 %) 61.4 70.2 Lymphocytes % (20.5 - 51.1 %) 25.2 17.0 L Monocytes % (1.7 - 9.3 %) 7.5 7.9 Eosinophils % (0 - 5 %) 5.3 H 4.1 Basophils % (0.0 - 2.0 %) 0.6 0.8 Absolute Granulocytes (1.4 - 6.5 /CUMM) 3.8 5.3 Absolute Lymphocytes (1.2 - 3.4 /CUMM) 1.6 1.3 Absolute Monocytes (0.10 - 0.60 /CUMM) 0.5 0.6 Absolute Eosinophils (0.0 - 0.7 /CUMM) 0.3 0.3 Absolute Basophils (0.0 - 0.2 /CUMM) 0 0.1 Serology Hepatitis A IgM Ab (NONREACTIVE) NONREACTIVE Hep Bs Antigen (NONREACTIVE) NONREACTIVE Hep B Core IgM Ab Conf (NONREACTIVE) NONREACTIVE Hepatitis C Antibody (NONREACTIVE) NONREACTIVE 07/09 07/09 1500 0655 Chemistry Sodium (137 - 145 mmol/L) 139 Potassium (3.5 - 5.1 mmol/L) 5.5 H Chloride (98 - 107 mmol/L) 116 H Carbon Dioxide (22 - 30 mmol/L) 15 L Anion Gap (5 - 16) 8 BUN (9 - 20 mg/dL) 61 H Creatinine (0.7 - 1.2 mg/dL) 3.0 H Estimated GFR (>60 ml/min) 20 L BUN/Creatinine Ratio (7 - 25 %) 20.3 Hemoglobin A1c (4.2 - 5.8 %) 6.4 H Lactic Acid (0.7 - 2.1 mmol/L) 1.8 Magnesium (1.6 - 2.3 mg/dL) 2.2 Hematology CBC w Diff NO MAN DIFF REQ WBC (4.8 - 10.8 /CUMM) 8.1 RBC (4.70 - 6.10 /CUMM) 4.30 L Hgb (14.0 - 18.0 G/DL) 14.1 Hct (42 - 52 %) 42.4 MCV (80.0 - 94.0 FL) 98.7 H MCH (27.0 - 31.0 PG) 32.9 H MCHC (33.0 - 37.0 G/DL) 33.4 RDW (11.5 - 14.5 %) 15.0 H Plt Count (130 - 400 /CUMM) 206 MPV (7.4 - 10.4 FL) 8.4 Gran % (42.2 - 75.2 %) 75.9 H Lymphocytes % (20.5 - 51.1 %) 13.8 L Monocytes % (1.7 - 9.3 %) 7.9 Eosinophils % (0 - 5 %) 1.9 Basophils % (0.0 - 2.0 %) 0.5 Absolute Granulocytes (1.4 - 6.5 /CUMM) 6.1 Absolute Lymphocytes (1.2 - 3.4 /CUMM) 1.1 L Absolute Monocytes (0.10 - 0.60 /CUMM) 0.6 Absolute Eosinophils (0.0 - 0.7 /CUMM) 0.2 Absolute Basophils (0.0 - 0.2 /CUMM) 0 07/080 1930 1759 Chemistry Sodium Cancelled Potassium Cancelled Chloride Cancelled Carbon Dioxide Cancelled Anion Gap Cancelled BUN Cancelled Creatinine Cancelled BUN/Creatinine Ratio Cancelled Urines Urine Color (YEL,AMB,STR) YEL Urine Clarity (CLEAR) CLEAR Urine pH (5.0 - 8.0) 6.0 Ur Specific [place] (1.001 - 1.035) 1.025 Urine Protein (NEG,<30 MG/DL) NEG Urine Ketones (NEG) NEG Urine Nitrite (NEG) NEG Urine Bilirubin (NEG) NEG Urine Urobilinogen (0.1 - 1.0 EU/dl) 0.2 Ur Leukocyte Esterase (NEG) NEG Ur Microscopic SEDIMENT EXAMINED Urine RBC (0 - 5 /HPF) 1-3 Ur Epithelial Cells (NONE,FEW) RARE Urine Bacteria (NEG/NONE) FEW H Urine Hemoglobin (NEG) MOD H Ur Random Creatinine (mg/dL) 79.9 Ur Random Sodium (30 - 90 mmol/L) 51 Ur Random Potassium (mmol/L) 17.0 Fraction Sodium Excret (<1% %) 1.9 H Urine Glucose (N MG/DL) >=1000 H 07/08 07/08 1758 1758 Chemistry Sodium (137 - 145 mmol/L) 138 Potassium (3.5 - 5.1 mmol/L) 5.5 H Chloride (98 - 107 mmol/L) 110 H Carbon Dioxide (22 - 30 mmol/L) 15 L Anion Gap (5 - 16) 13 BUN (9 - 20 mg/dL) 65 H Creatinine (0.7 - 1.2 mg/dL) 4.1 H Estimated GFR (>60 ml/min) 14 L BUN/Creatinine Ratio (7 - 25 %) 15.9 Lactic Acid (0.7 - 2.1 mmol/L) 2.5 H
[2018-07-11 21:09] VITALS: BP 114/52
[2018-07-12 06:35] VITALS: BP 91/51
--- NOTE | 2018-07-12 07:05 | PN- Housestaff ---
Marin WELCH,Sherron 07/12/18 0705: Subjective Follow-up For: Choledocholithiasis Acute kidney injury BPH Complaints: no complaints Tele-Events Since Last Visit: Normal sinus rhythm heart rate 70 Subjective: Patient seen and examined at bedside. No overnight events. Slept well. Denies further episodes of hematuria, abdominal pain, nausea, vomiting, chest pain. Review of Systems Constitutional: Reports: no symptoms. Objective Last 24 Hrs of Vital Signs/I&O Vital Signs Date Time Temp Pulse Resp B/P B/P Pulse O2 O2 Flow FiO2 Mean Ox Delivery Rate 07/12 0635 97.5 54 20 91/51 93 Room Air 07/11 2109 98.0 73 18 114/52 94 07/11 1448 98.2 80 18 130/60 92 Room Air 07/11 1110 88 150/70 07/11 1110 88 150/70 Intake & Output 07/12 1600 07/12 0800 07/12 0000 Intake Total 50 Output Total 250 150 Balance -250 -100 Intake, Oral 50 Output, Urine 250 150 Patient 190 lb Weight Physical Exam General Appearance: Alert, Oriented X3, Cooperative, No Acute Distress Cardiovascular: Normal S1, Normal S2, No Murmurs Lungs: Clear to Auscultation Abdomen: Soft, No Tenderness, No Hepatospenomegaly Current Medications: Current Medications Sig/Renu Start time Last Medication Dose Route Stop Time Status Admin Allopurinol 300 MG DAILY 07/12 1034 AC PO Aspirin Buffered 81 MG DAILY 07/08 2024 AC 07/12 PO 0846 Cyanocobalamin 1,000 MCG Q30D 07/10 1200 AC 07/10 IM 1302 Finasteride 5 MG DAILY 07/10 0900 AC 07/12 PO 0847 Insulin Aspart 0 TIDAC 07/11 1200 AC 07/11 SC 1255 Magnesium Oxide 400 MG ONE ONE 07/12 1045 DC PO 07/12 1046 Metoclopramide HCl 5 MG Q12P PRN 07/08 2115 AC IV Metoprolol Succinate 50 MG DAILY 07/08 2023 AC 07/12 PO 0847 Omeprazole 20 MG DAILY AC 07/11 0837 AC 07/12 PO 0613 Polyethylene Glycol 17 GM DAILY 07/10 1747 AC 07/12 PO 0858 Senna/Docusate Sodium 2 TAB DAILY PRN 07/10 1800 AC 07/12 PO 0849 Sodium Bicarbonate 650 MG BID 07/08 2100 AC 07/12 PO 0848 Sodium Polystyrene 60 ML ONCE ONE 07/11 1745 DC 07/11 Sulfonate PO 07/11 1746 1814 Tamsulosin HCl 0.4 MG DAILY 07/10 0900 AC 07/12 PO 0847 Last 24 Hrs of Lab/Jakob Results Last 24 Hrs of Labs/Mics: Laboratory Tests 07/12/18 0615: Anion Gap 9, Estimated GFR 41 L, BUN/Creatinine Ratio 21.9, Magnesium 1.7, CBC w Diff NO MAN DIFF REQ, RBC 3.31 L, MCV 98.6 H, MCH 33.6 H, MCHC 34.1, RDW 14.9 H, MPV 8.6, Gran % 69.5, Lymphocytes % 20.4 L, Monocytes % 3.9, Eosinophils % 5.8 H, Basophils % 0.4, Absolute Granulocytes 4.6, Absolute Lymphocytes 1.3, Absolute Monocytes 0.3, Absolute Eosinophils 0.4, Absolute Basophils 0 Assessment/Plan Assessment: Patient is an 82-year-old male presented with a chief complaints of abdominal pain, sent by the urgent care for evaluation. Past medical history- * History of SVT 2007, converted to normal sinus rhythm by Dr. Jaime; currently on flecainide and metoprolol and following Dr Perry * Right bundle branch block * Hypertension * Hyperlipidemia * Type 2 diabetes * GERD * History of polyps * History of diverticulosis * History of GI bleed Assessment and plan 1. Cholelithiasis without CBD stone plan for ERCP tomorrow. 2. BPH-patient is on Flomax and tamsulosin. Puente was removed. Hematuria resolved. 3. Acute kidney injury-secondary due to volume depletion most likely dehydration and STEFANIE inhibitors use. Patient is also on SGLT2 inhibitor which worsen the acute kidney injury. Patient presented with hyperphosphatemia, hyperkalemia. Kidney injury improved. Patient is on sodium bicarb given his metabolic acidosis secondary due to UTI. Nephrology follow-up appreciated 4. Gout-patient's allopurinol was stopped in view of EVELYN. Since his kidney numbers improved we will restart him on 300 allopurinol daily. 6. SVT-patient was on flecainide which was stopped in view of EVELYN. No telemetry events. We will follow with cardiology. 6.-Diabetes-patient was on Janumet and Farxiga. Both were stopped in view of acute kidney injury and patient is now on sliding scale insulin. Patient might need another class of medication like sulfonylurea for his diabetes control. We will give referral to his primary care physician and if needed endocrinology. Problem List: 1. Type 2 diabetes mellitus 2. Metabolic acidosis 3. Hyperkalemia 4. Acute renal failure (ARF) Pain Ratin Pain Location: NONE Pain Goal: Remain pain free Pain Plan: TYLENOL Tomorrow's Labs & Rationales: CBC,BEP Ami Malin 07/12/18 1147: Attending MD Review Statement Attending Statement Attending MD Statement: examined this patient, discuss w/resident/PA/VACUUM CLEANER REPAIR PERSON, agreed w/resident/PA/VACUUM CLEANER REPAIR PERSON, reviewed EMR data (avail), discussed with nursing, discussed with case mgmt Attending Assessment/Plan: Acute kidney injury-resolving now with creatinine down to 1.6 today. Could be secondary to worsening BPH as well as the from one of the new diabetic medication that the patient was on. BPH- patient started on finasteride and Flomax. Puente dced- will see how he is doing with voiding. Hyperkalemia and constipation- resolved with kayexelate and pt had good BM. Arrhythmia at admission secondary to flecanide toxicity- seen by cardiology and Flecanide was stopped. Discussed with cardiology. Continue to monitor on telemetry for now. Cardiology consult appreciated. WIll check with them today and see if they are ok with restarting flecanide. Abdominal pain with ultrasound showing intrahepatic biliary dilation- MRCP was done today and showed choledocholithiasis. GI input appreciated and plan to do ERCP maybe on . H/o Gout- allopurinol was held at admission. Will restart and renally dose it. Low BP this am- will recheck and monitor closely. pt encouraged to drink more water. d/w pt the care plan.
[2018-07-12 08:15] LABS: ABSOLUTE BASOPHIL COUNT 0 /CUMM (0.0-0.2); ABSOLUTE EOSINOPHIL COUNT 0.4 /CUMM (0.0-0.7); ABSOLUTE GRANULOCYTE CT 4.6 /CUMM (1.4-6.5); ABSOLUTE LYMPH COUNT 1.3 /CUMM (1.2-3.4); ABSOLUTE MONOCYTE COUNT 0.3 /CUMM (0.10-0.60); BASOPHIL % 0.4 % (0.0-2.0); EOSINOPHIL % 5.8 % (0-5); GRANULOCYTE % 69.5 % (42.2-75.2); HEMATOCRIT 32.6 % (42-52); MEAN CORPUSCULAR HGB 33.6 PG (27.0-31.0); MEAN CORPUSCULAR HGB CONC 34.1 G/DL (33.0-37.0); MEAN CORPUSCULAR VOLUME 98.6 FL (80.0-94.0); MEAN PLATELET VOLUME 8.6 FL (7.4-10.4); PLATELET COUNT 176 /CUMM (130-400); RBC DISTRIBUTION WIDTH 14.9 % (11.5-14.5); RED BLOOD CELL CT 3.31 /CUMM (4.70-6.10); WHITE BLOOD CELL COUNT 6.6 /CUMM (4.8-10.8)
--- NOTE | 2018-07-12 11:36 | PN- Nephrology ---
Assessment/Plan Nephrology Assessment: EVELYN from Na/Glucose transport inhibitor, volume depletion with ACEI. Also may have had some elelment of obstrution. Suggestion: Follow UO now that Puente is out. Continue current meds. Recheck labs tomorrow. Subjective Subjective: Feels well, going for ERCP tomorrow. Puente out and patient states he is voiding well. Objective Vital Signs and I&Os Vital Signs Date Time Temp Pulse Resp B/P B/P Pulse O2 O2 Flow FiO2 Mean Ox Delivery Rate 07/12 0847 54 91/51 07/12 0847 54 /51 07/12 0635 97.5 54 20 91/51 93 Room Air 07/11 2109 98.0 73 18 114/52 94 07/11 1448 98.2 80 18 130/60 92 Room Air Intake & Output 07/12 1600 07/12 0400 07/11 1600 07/11 0400 07/10 1600 07/10 0400 Intake Total 50 2577 465 0319 240 Output Total 308 928 7993 550 1200 350 Balance -250 -100 -550 -350 230 -110 Intake, IV 400 200 950 Intake, Oral 50 600 480 240 Number 0 Bowel Movements Output, Urine 394 948 1338 550 1200 350 Patient 190 lb 191 lb 189 lb Weight Weight Bed scale Bed scale Measurement Method Physical Exam: NAD VS as above. Lungs: clear CV: no rub Abd: nontender Exts: no edema Neuro A&O, no asterixis. Current Medications: Current Medications Sig/Renu Start time Last Medication Dose Route Stop Time Status Admin Allopurinol 300 MG DAILY 07/12 1034 AC PO Aspirin Buffered 81 MG DAILY 07/08 2024 AC 07/12 PO 0846 Cyanocobalamin 1,000 MCG Q30D 07/10 1200 AC 07/10 IM 1302 Finasteride 5 MG DAILY 07/10 0900 AC 07/12 PO 0847 Insulin Aspart 0 TIDAC 07/11 1200 AC 07/11 SC 1255 Magnesium Oxide 400 MG ONE ONE 07/12 1045 DC PO 07/12 1046 Metoclopramide HCl 5 MG Q12P PRN 07/08 2115 AC IV Metoprolol Succinate 50 MG DAILY 07/08 2023 AC 07/12 PO 0847 Omeprazole 20 MG DAILY AC 07/11 0837 AC 07/12 PO 0613 Polyethylene Glycol 17 GM DAILY 07/10 1747 AC 07/12 PO 0858 Senna/Docusate Sodium 2 TAB DAILY PRN 07/10 1800 AC 07/12 PO 0849 Sodium Bicarbonate 650 MG BID 07/08 2100 AC 07/12 PO 0848 Sodium Polystyrene 60 ML ONCE ONE 07/11 1745 DC 07/11 Sulfonate PO 07/11 1746 1814 Tamsulosin HCl 0.4 MG DAILY 07/10 0900 AC 07/12 PO 0847 Results Pertinent Lab Results: Laboratory Tests 07/12 07/11 0615 0620 Chemistry Sodium (137 - 145 mmol/L) 142 139 Potassium (3.5 - 5.1 mmol/L) 4.6 5.2 H Chloride (98 - 107 mmol/L) 116 H 115 H Carbon Dioxide (22 - 30 mmol/L) 18 L 18 L Anion Gap (5 - 16) 9 6 BUN (9 - 20 mg/dL) 35 H 42 H Creatinine (0.7 - 1.2 mg/dL) 1.6 H 1.8 H Estimated GFR (>60 ml/min) 41 L 36 L BUN/Creatinine Ratio (7 - 25 %) 21.9 23.3 Magnesium (1.6 - 2.3 mg/dL) 1.7 1.8 Coagulation PT (9.4 - 12.5 SEC) 11.7 INR (0.90 - 1.17) 1.07 APTT (25 - 37 SEC) 31 Hematology CBC w Diff NO MAN DIFF REQ NO MAN DIFF REQ WBC (4.8 - 10.8 /CUMM) 6.6 6.2 RBC (4.70 - 6.10 /CUMM) 3.31 L 3.61 L Hgb (14.0 - 18.0 G/DL) 11.1 L 12.0 L Hct (42 - 52 %) 32.6 L 35.6 L MCV (80.0 - 94.0 FL) 98.6 H 98.6 H MCH (27.0 - 31.0 PG) 33.6 H 33.3 H MCHC (33.0 - 37.0 G/DL) 34.1 33.8 RDW (11.5 - 14.5 %) 14.9 H 15.2 H Plt Count (130 - 400 /CUMM) 176 182 MPV (7.4 - 10.4 FL) 8.6 8.5 Gran % (42.2 - 75.2 %) 69.5 61.4 Lymphocytes % (20.5 - 51.1 %) 20.4 L 25.2 Monocytes % (1.7 - 9.3 %) 3.9 7.5 Eosinophils % (0 - 5 %) 5.8 H 5.3 H Basophils % (0.0 - 2.0 %) 0.4 0.6 Absolute Granulocytes (1.4 - 6.5 /CUMM) 4.6 3.8 Absolute Lymphocytes (1.2 - 3.4 /CUMM) 1.3 1.6 Absolute Monocytes (0.10 - 0.60 /CUMM) 0.3 0.5 Absolute Eosinophils (0.0 - 0.7 /CUMM) 0.4 0.3 Absolute Basophils (0.0 - 0.2 /CUMM) 0 0 07/10 07/09 0655 1500 Chemistry Sodium (137 - 145 mmol/L) 139 Potassium (3.5 - 5.1 mmol/L) 4.9 Chloride (98 - 107 mmol/L) 116 H Carbon Dioxide (22 - 30 mmol/L) 17 L Anion Gap (5 - 16) 5 BUN (9 - 20 mg/dL) 53 H Creatinine (0.7 - 1.2 mg/dL) 2.6 H Estimated GFR (>60 ml/min) 24 L BUN/Creatinine Ratio (7 - 25 %) 20.4 Lactic Acid (0.7 - 2.1 mmol/L) 1.8 Magnesium (1.6 - 2.3 mg/dL) 2.0 Hematology CBC w Diff NO MAN DIFF REQ WBC (4.8 - 10.8 /CUMM) 7.5 RBC (4.70 - 6.10 /CUMM) 3.78 L Hgb (14.0 - 18.0 G/DL) 12.7 L Hct (42 - 52 %) 37.7 L MCV (80.0 - 94.0 FL) 99.7 H MCH (27.0 - 31.0 PG) 33.5 H MCHC (33.0 - 37.0 G/DL) 33.6 RDW (11.5 - 14.5 %) 15.0 H Plt Count (130 - 400 /CUMM) 174 MPV (7.4 - 10.4 FL) 8.3 Gran % (42.2 - 75.2 %) 70.2 Lymphocytes % (20.5 - 51.1 %) 17.0 L Monocytes % (1.7 - 9.3 %) 7.9 Eosinophils % (0 - 5 %) 4.1 Basophils % (0.0 - 2.0 %) 0.8 Absolute Granulocytes (1.4 - 6.5 /CUMM) 5.3 Absolute Lymphocytes (1.2 - 3.4 /CUMM) 1.3 Absolute Monocytes (0.10 - 0.60 /CUMM) 0.6 Absolute Eosinophils (0.0 - 0.7 /CUMM) 0.3 Absolute Basophils (0.0 - 0.2 /CUMM) 0.1 Serology Hepatitis A IgM Ab (NONREACTIVE) NONREACTIVE Hep Bs Antigen (NONREACTIVE) NONREACTIVE Hep B Core IgM Ab Conf (NONREACTIVE) NONREACTIVE Hepatitis C Antibody (NONREACTIVE) NONREACTIVE
[2018-07-12 14:25] VITALS: BP 128/52
[2018-07-12 23:24] VITALS: BP 128/60
[2018-07-13 06:30] VITALS: BP 130/62
--- NOTE | 2018-07-13 07:36 | PN- Housestaff ---
Marin WELCH,Sherron 07/13/18 0736: Subjective Follow-up For: Choledocholithiasis Acute kidney injury BPH Diabetes Complaints: no complaints Tele-Events Since Last Visit: Normal sinus rhythm Subjective: Patient seen and examined at bedside. No overnight events. Patient is eager to get the procedure done today. Patient is planned for ERCP today. He denies abdominal pain nausea, vomiting, chest pain. Review of Systems Constitutional: Reports: no symptoms. Objective Last 24 Hrs of Vital Signs/I&O Vital Signs Date Time Temp Pulse Resp B/P B/P Pulse O2 O2 Flow FiO2 Mean Ox Delivery Rate 07/13 0630 97.7 74 18 130/62 94 Room Air 07/12 2324 97.5 81 16 128/60 94 Room Air 07/12 2200 Room Air 07/12 1425 97.7 82 20 128/52 94 Intake & Output 07/13 1600 07/13 0800 07/13 0000 Intake Total 0 240 Output Total 800 Balance 0 -560 Intake, Oral 0 240 Number 0 0 Bowel Movements Output, Urine 800 Patient 190 lb Weight Physical Exam General Appearance: Alert, Oriented X3, Cooperative, No Acute Distress Cardiovascular: Regular Rate, Normal S1, Normal S2, No Murmurs Lungs: Clear to Auscultation Abdomen: Soft, No Tenderness, No Hepatospenomegaly Neurological: Normal Speech, Strength at 5/5 X4 Ext, Normal Tone, Sensation Intact Extremities: No Edema, Normal Pulses Current Medications: Current Medications Sig/Renu Start time Last Medication Dose Route Stop Time Status Admin Allopurinol 300 MG DAILY 07/12 1034 AC 07/12 PO 1404 Aspirin Buffered 81 MG DAILY 07/08 2024 AC 07/12 PO 0846 Cyanocobalamin 1,000 MCG Q30D 07/10 1200 AC 07/10 IM 1302 Finasteride 5 MG DAILY 07/10 0900 AC 07/12 PO 0847 Insulin Aspart 0 TIDAC 07/11 1200 AC 07/12 SC 1403 Magnesium Oxide 400 MG ONE ONE 07/12 1045 DC 07/12 PO 07/12 1046 1404 Metoclopramide HCl 5 MG Q12P PRN 07/08 2115 AC IV Metoprolol Succinate 50 MG DAILY 07/08 2023 AC 07/12 PO 0847 Omeprazole 20 MG DAILY AC 07/11 0837 AC 07/12 PO 0613 Polyethylene Glycol 17 GM DAILY 07/10 1747 AC 07/12 PO 0858 Senna/Docusate Sodium 2 TAB DAILY PRN 07/10 1800 AC 07/12 PO 0849 Sodium Bicarbonate 650 MG BID 07/08 2100 AC 07/12 PO 2020 Tamsulosin HCl 0.4 MG DAILY 07/10 0900 AC 07/12 PO 0847 Last 24 Hrs of Lab/Jakob Results Last 24 Hrs of Labs/Mics: Laboratory Tests 07/13/18 0630: Anion Gap 6, Estimated GFR 45 L, BUN/Creatinine Ratio 18.0, Magnesium 1.7, CBC w Diff NO MAN DIFF REQ, RBC 3.31 L, MCV 98.1 H, MCH 33.4 H, MCHC 34.0, RDW 15.3 H, MPV 8.2, Gran % 77.0 H, Lymphocytes % 14.2 L, Monocytes % 4.1, Eosinophils % 4.4, Basophils % 0.3, Absolute Granulocytes 6.0, Absolute Lymphocytes 1.1 L, Absolute Monocytes 0.3, Absolute Eosinophils 0.3, Absolute Basophils 0 Assessment/Plan Assessment: Patient is an 82-year-old male presented with a chief complaints of abdominal pain, sent by the urgent care for evaluation. Past medical history- * History of SVT 2007, converted to normal sinus rhythm by Dr. Jaime; currently on flecainide and metoprolol and following Dr Perry * Right bundle branch block * Hypertension * Hyperlipidemia * Type 2 diabetes * GERD * History of polyps * History of diverticulosis * History of GI bleed Assessment and plan 1. Cholelithiasis without CBD stone plan for ERCP today. 2. BPH-patient is on Flomax and tamsulosin. Puente was removed. Hematuria resolved. 3. Acute kidney injury-secondary due to volume depletion most likely dehydration and STEFANIE inhibitors use. Patient was also on SGLT2 inhibitor which worsen the acute kidney injury. Patient presented with hyperphosphatemia, hyperkalemia. Kidney injury improved. Patient is on sodium bicarb p.o. given his metabolic acidosis secondary due to UTI. Nephrology follow-up appreciated 4. Gout-patient's allopurinol was stopped in view of EVELYN. Since his kidney numbers improved we will restart him on 300 allopurinol daily. 6. SVT-patient was on flecainide which was stopped in view of EVELYN. No telemetry events. We will follow with cardiology. 6.-Diabetes-patient was on Janumet and Farxiga. Both were stopped in view of acute kidney injury and patient is now on sliding scale insulin. Patient can go home with long-acting insulin or with glipizide and sitagliptin. Patient needs endocrinology follow-up as outpatient. Problem List: 1. Type 2 diabetes mellitus 2. Hyperkalemia 3. Acute renal failure (ARF) Pain Ratin Pain Location: none Pain Goal: Remain pain free Pain Plan: tylenol Tomorrow's Labs & Rationales: cbc,bep Dea,Ami 07/13/18 1327: Attending MD Review Statement Attending Statement Attending MD Statement: examined this patient, discuss w/resident/PA/TECHNICAL SPECIALIST CYTOGENETICS, agreed w/resident/PA/TECHNICAL SPECIALIST CYTOGENET[employer], reviewed EMR data (avail), discussed with nursing, discussed with case mgmt Attending Assessment/Plan: Acute kidney injury-resolving now with creatinine down to 1.5 today. Could be secondary to worsening BPH as well as the from one of the new diabetic medication that the patient was on. BPH- patient started on finasteride and Flomax. Puente dced- will see how he is doing with voiding. Hyperkalemia and constipation- resolved with kayexelate and pt had good BM. Arrhythmia at admission secondary to flecanide toxicity- seen by cardiology and Flecanide was stopped. Discussed with cardiology. Continue to monitor on telemetry for now. Cardiology consult appreciated. Cont to hold flecanide for now and increase metoprolol. Abdominal pain with ultrasound showing intrahepatic biliary dilation- MRCP was done today and showed choledocholithiasis. GI input appreciated and plan to do ERCP today. H/o Gout- allopurinol was held at admission. restarted. DM- at discharge will start on januvia and low dose glipizide. pt does not want insulin.
[2018-07-13 08:15] LABS: ABSOLUTE BASOPHIL COUNT 0 /CUMM (0.0-0.2); ABSOLUTE EOSINOPHIL COUNT 0.3 /CUMM (0.0-0.7); ABSOLUTE LYMPH COUNT 1.1 /CUMM (1.2-3.4); ABSOLUTE MONOCYTE COUNT 0.3 /CUMM (0.10-0.60); BASOPHIL % 0.3 % (0.0-2.0); EOSINOPHIL % 4.4 % (0-5); HEMATOCRIT 32.5 % (42-52); MEAN CORPUSCULAR HGB 33.4 PG (27.0-31.0); MEAN CORPUSCULAR VOLUME 98.1 FL (80.0-94.0); MEAN PLATELET VOLUME 8.2 FL (7.4-10.4); PLATELET COUNT 170 /CUMM (130-400); RBC DISTRIBUTION WIDTH 15.3 % (11.5-14.5); RED BLOOD CELL CT 3.31 /CUMM (4.70-6.10); WHITE BLOOD CELL COUNT 7.8 /CUMM (4.8-10.8)
--- NOTE | 2018-07-13 08:53 | PN- Cardiology ---
Subjective Subjective: Telemetry reviewed. Sinus rhythm. No arrhythmias. Patient feeling well. Scheduled for ERCP today. Objective Vital Signs and I&Os Vital Signs Date Time Temp Pulse Resp B/P B/P Pulse O2 O2 Flow FiO2 Mean Ox Delivery Rate 07/13 0630 97.7 74 18 130/62 94 Room Air 07/12 2324 97.5 81 16 128/60 94 Room Air 07/12 2200 Room Air 07/12 1425 97.7 82 20 128/52 94 Intake & Output 07/13 1600 07/13 0807/13 0000 07/12 1600 07/12 0000 Intake Total 0 240 50 Output Total 800 200 250 150 Balance 0 -560 -200 -250 -100 Intake, Oral 0 240 50 Number 0 0 Bowel Movements Output, Urine 800 200 250 150 Patient 190 lb 190 lb Weight Physical Exam: On physical exam he appeared comfortable. Talkative. Sitting out in a chair. Head normocephalic atraumatic Eyes sclera anicteric conjunctiva showed no pallor extraocular muscles were normal Rosine neck no jugular venous tension no thyroid masses no palpable nodes Chest lungs were clear bilaterally Heart regular rhythm with a 1/6 to 2/6 systolic murmur Abdomen soft no organomegaly bowel sounds normal Extremities no clubbing cyanosis or edema Neurological no gross motor or sensory deficits Current Medications: Current Medications Sig/Renu Start time Last Medication Dose Route Stop Time Status Admin Allopurinol 300 MG DAILY 07/12 1034 AC 07/12 PO 1404 Aspirin Buffered 81 MG DAILY 07/08 2024 AC 07/12 PO 0846 Cyanocobalamin 1,000 MCG Q30D 07/10 1200 AC 07/10 IM 1302 Finasteride 5 MG DAILY 07/10 0900 AC 07/12 PO 0847 Insulin Aspart 0 TIDAC 07/11 1200 AC 07/12 SC 1403 Magnesium Oxide 400 MG ONE ONE 07/12 1045 DC 07/12 PO 07/12 1046 1404 Metoclopramide HCl 5 MG Q12P PRN 07/08 2115 AC IV Metoprolol Succinate 50 MG DAILY 07/08 2023 AC 07/12 PO 0847 Omeprazole 20 MG DAILY AC 07/11 0837 AC 07/12 PO 0613 Polyethylene Glycol 17 GM DAILY 07/10 1747 AC 07/12 PO 0858 Senna/Docusate Sodium 2 TAB DAILY PRN 08/27 1800 AC 07/12 PO 0849 Sodium Bicarbonate 650 MG BID 07/08 2100 AC 07/12 PO 2020 Tamsulosin HCl 0.4 MG DAILY 07/10 0900 AC 07/12 PO 0847 Results Last 48 Hrs of Labs/Mics: Laboratory Tests 07/13/18 0630: Anion Gap 6, Estimated GFR 45 L, BUN/Creatinine Ratio 18.0, Magnesium 1.7, CBC w Diff NO MAN DIFF REQ, RBC 3.31 L, MCV 98.1 H, MCH 33.4 H, MCHC 34.0, RDW 15.3 H, MPV 8.2, Gran % 77.0 H, Lymphocytes % 14.2 L, Monocytes % 4.1, Eosinophils % 4.4, Basophils % 0.3, Absolute Granulocytes 6.0, Absolute Lymphocytes 1.1 L, Absolute Monocytes 0.3, Absolute Eosinophils 0.3, Absolute Basophils 0 07/12/18614: Anion Gap 9, Estimated GFR 41 L, BUN/Creatinine Ratio 21.9, Magnesium 1.7, CBC w Diff NO MAN DIFF REQ, RBC 3.31 L, MCV 98.6 H, MCH 33.6 H, MCHC 34.1, RDW 14.9 H, MPV 8.6, Gran % 69.5, Lymphocytes % 20.4 L, Monocytes % 3.9, Eosinophils % 5.8 H, Basophils % 0.4, Absolute Granulocytes 4.6, Absolute Lymphocytes 1.3, Absolute Monocytes 0.3, Absolute Eosinophils 0.4, Absolute Basophils 0 Assessment/Plan Assessment/Plan In summary this 82-year-old gentleman was admitted to the following problems 1. Cholelithiasis. For ERCP today. 2. Acute kidney injury. Etiology could be combination of volume depletion dehydration, possibly drug-induced, not improving. 3. History of SVT. This has been recurrent and although patient was given the option of radiofrequency ablation he refused. He was therefore placed on medical treatment namely flecainide which has caused him to be stable over the past few years. I think we can hold off on flecainide for the time being. Would increase metoprolol succinate to 75 mg a day. Await stabilization of renal functions and or await recurrence of SVT to decide if future strategy should include ablation or medical treatment. 4. Diabetes mellitus 5. BPH and hematuria Puente removed now improving Continue telemetry? Yes
--- NOTE | 2018-07-13 09:06 | PN- Nephrology ---
Assessment/Plan Nephrology Assessment: Creatinine better but not back to 2012 baseline. Possible patient has had some advancement of CKD since then or may never reach prior baseline after EVELYN. Suggestion: No changes. Would keep off SGLT2 inhibitors. Subjective Subjective: Patient feeling well, no new complaints. Going for ERCP later today. Objective Vital Signs and I&Os Vital Signs Date Time Temp Pulse Resp B/P B/P Pulse O2 O2 Flow FiO2 Mean Ox Delivery Rate 07/13 630 97.7 74 18 130/62 94 Room Air 07/12 2324 97.5 81 16 128/60 94 Room Air 07/12 2200 Room Air 07/12 1425 97.7 82 20 128/52 94 Intake & Output 07/13 1600 07/13 0400 07/12 1600 07/12 0400 07/11 1600 07/11 0400 Intake Total 0 393 58 8217 200 Output Total 800 023 820 0543 550 Balance 0 -560 -450 -100 -550 -350 Intake, IV 400 200 Intake, Oral 0 240 50 600 Number 0 0 Bowel Movements Output, Urine 800 654 789 5802 550 Patient 190 lb 190 lb 191 lb Weight Weight Bed scale Measurement Method Physical Exam: NAD VS as above. Lungs: clear CV: no rub Abd: nontender Exts: no edema Neuro A&O, no asterixis. Current Medications: Current Medications Sig/Renu Start time Last Medication Dose Route Stop Time Status Admin Allopurinol 300 MG DAILY 07/12 1034 AC 07/12 PO 1404 Aspirin Buffered 81 MG DAILY 07/08 2024 AC 07/12 PO 0846 Cyanocobalamin 1,000 MCG Q30D 07/10 1200 AC 07/10 IM 1302 Finasteride 5 MG DAILY 07/10 0900 AC 07/12 PO 0847 Insulin Aspart 0 TIDAC 07/11 1200 AC 07/12 SC 1403 Magnesium Oxide 400 MG ONE ONE 07/12 1045 DC 07/12 PO 07/12 1046 1404 Metoclopramide HCl 5 MG Q12P PRN 07/08 2115 AC IV Metoprolol Succinate 50 MG DAILY 07/08 2023 AC 07/12 PO 0847 Omeprazole 20 MG DAILY AC 07/11 0837 AC 07/12 PO 0613 Polyethylene Glycol 17 GM DAILY 07/10 1747 AC 07/12 PO 0858 Senna/Docusate Sodium 2 TAB DAILY PRN 07/10 1800 AC 07/12 PO 0849 Sodium Bicarbonate 650 MG BID 07/08 2100 AC 07/12 PO 2020 Tamsulosin HCl 0.4 MG DAILY 07/10 0900 AC 07/12 PO 0847 Results Pertinent Lab Results: Laboratory Tests 07/13 07/12 0630 0615 Chemistry Sodium (137 - 145 mmol/L) 140 142 Potassium (3.5 - 5.1 mmol/L) 4.4 4.6 Chloride (98 - 107 mmol/L) 112 H 116 H Carbon Dioxide (22 - 30 mmol/L) 22 18 L Anion Gap (5 - 16) 6 9 BUN (9 - 20 mg/dL) 27 H 35 H Creatinine (0.7 - 1.2 mg/dL) 1.5 H 1.6 H Estimated GFR (>60 ml/min) 45 L 41 L BUN/Creatinine Ratio (7 - 25 %) 18.0 21.9 Magnesium (1.6 - 2.3 mg/dL) 1.7 1.7 Hematology CBC w Diff NO MAN DIFF REQ NO MAN DIFF REQ WBC (4.8 - 10.8 /CUMM) 7.8 6.6 RBC (4.70 - 6.10 /CUMM) 3.31 L 3.31 L Hgb (14.0 - 18.0 G/DL) 11.1 L 11.1 L Hct (42 - 52 %) 32.5 L 32.6 L MCV (80.0 - 94.0 FL) 98.1 H 98.6 H MCH (27.0 - 31.0 PG) 33.4 H 33.6 H MCHC (33.0 - 37.0 G/DL) 34.0 34.1 RDW (11.5 - 14.5 %) 15.3 H 14.9 H Plt Count (130 - 400 /CUMM) 170 176 MPV (7.4 - 10.4 FL) 8.2 8.6 Gran % (42.2 - 75.2 %) 77.0 H 69.5 Lymphocytes % (20.5 - 51.1 %) 14.2 L 20.4 L Monocytes % (1.7 - 9.3 %) 4.1 3.9 Eosinophils % (0 - 5 %) 4.4 5.8 H Basophils % (0.0 - 2.0 %) 0.3 0.4 Absolute Granulocytes (1.4 - 6.5 /CUMM) 6.0 4.6 Absolute Lymphocytes (1.2 - 3.4 /CUMM) 1.1 L 1.3 Absolute Monocytes (0.10 - 0.60 /CUMM) 0.3 0.3 Absolute Eosinophils (0.0 - 0.7 /CUMM) 0.3 0.4 Absolute Basophils (0.0 - 0.2 /CUMM) 0 0 08/28 0620 Chemistry Sodium (137 - 145 mmol/L) 139 Potassium (3.5 - 5.1 mmol/L) 5.2 H Chloride (98 - 107 mmol/L) 115 H Carbon Dioxide (22 - 30 mmol/L) 18 L Anion Gap (5 - 16) 6 BUN (9 - 20 mg/dL) 42 H Creatinine (0.7 - 1.2 mg/dL) 1.8 H Estimated GFR (>60 ml/min) 36 L BUN/Creatinine Ratio (7 - 25 %) 23.3 Magnesium (1.6 - 2.3 mg/dL) 1.8 Coagulation PT (9.4 - 12.5 SEC) 11.7 INR (0.90 - 1.17) 1.07 APTT (25 - 37 SEC) 31 Hematology CBC w Diff NO MAN DIFF REQ WBC (4.8 - 10.8 /CUMM) 6.2 RBC (4.70 - 6.10 /CUMM) 3.61 L Hgb (14.0 - 18.0 G/DL) 12.0 L Hct (42 - 52 %) 35.6 L MCV (80.0 - 94.0 FL) 98.6 H MCH (27.0 - 31.0 PG) 33.3 H MCHC (33.0 - 37.0 G/DL) 33.8 RDW (11.5 - 14.5 %) 15.2 H Plt Count (130 - 400 /CUMM) 182 MPV (7.4 - 10.4 FL) 8.5 Gran % (42.2 - 75.2 %) 61.4 Lymphocytes % (20.5 - 51.1 %) 25.2 Monocytes % (1.7 - 9.3 %) 7.5 Eosinophils % (0 - 5 %) 5.3 H Basophils % (0.0 - 2.0 %) 0.6 Absolute Granulocytes (1.4 - 6.5 /CUMM) 3.8 Absolute Lymphocytes (1.2 - 3.4 /CUMM) 1.6 Absolute Monocytes (0.10 - 0.60 /CUMM) 0.5 Absolute Eosinophils (0.0 - 0.7 /CUMM) 0.3 Absolute Basophils (0.0 - 0.2 /CUMM) 0
[2018-07-13 12:25] VITALS: BP 142/60
--- NOTE | 2018-07-13 15:34 | RADIOLOGY REPORT ---
EXAMINATION: XR BILIARY AND PANCREATIC ERCP CLINICAL INFORMATION: Abdominal pain COMPARISON: Abdomen MRI, 07/10/2018 TECHNIQUE: Fluoroscopic imaging of the abdomen was utilized by Dr. Hall during performance of ERCP. FLUOROSCOPY TIME: 8 minutes, 25 seconds NUMBER OF IMAGES: 24 images DOSE: 23.17 rad FINDINGS: C-arm fluoroscopic imaging equipment was needed during performance of ERCP by Dr. Hall. Please refer to Dr. Hall' report. A duodenoscope was advanced to the level of the ampulla and common bile duct was cannulated and injected with iodinated contrast. Proximal common bile duct was dilated and contained filling defects. Apparent filling defect within the left common hepatic duct, as well. The visualized intrahepatic ducts were dilated. A balloon was utilized to sweep the duct. A common duct stent was subsequently deployed. IMPRESSION: - Choledocholithiasis with dilatation of the proximal CBD and intrahepatic ducts. - Fluoroscopic imaging equipment was utilized during performance of ERCP.
--- NOTE | 2018-07-13 16:13 | Proc Note ERCP ---
ERCP Procedure Procedure Date: 07/13/18 GI Procedure(s): ERCP with sphincterotomy/stone extraction/stent Joiner Apprentice: Bryant Hall M.D. ASA Classification: III Indications: * Abdominal pain * Imaging demonstrating biliary dilatation and filling defects consistent with choledocholithiasis Instrument: duodenoscope Meds Received: [place], [place] Patient's Tolerance: good Complications: none Procedure: The patient signed informed consent, was brought to the fluoroscopy suite, sedated, intubated, and turned into the prone position. Indomethacin 100 mg was administered per rectum. Pulse oximetry, blood pressure and cardiac monitoring were performed continuously throughout the procedure. The Olympus V duodenoscope was inserted into the mouth and advanced to the duodenum. The stomach was not examined. Gastric outlet, duodenum and papilla were all normal. Wire cannulation was initially into the pancreas (contrast not injected ), and then the Omnitome/wire were repositioned, and the common bile duct accessed. The cholangiogram demonstrated a normal caliber distal common bile duct, with several small filling defects. The more proximal CBD/common hepatic duct was markedly dilated, with 2 large (approximately 2 cm) filling defects. The intrahepatic ducts were dilated. The cystic duct was not opacified. A large sphincterotomy was performed. Several small stones were then extracted from the distal CBD with a fully inflated 15 mm extraction balloon. The balloon was then inflated above the larger filling defects, and pulled through without resistance, but without moving/dragging the filling defects. A 3 x 6 cm Fusion basket was advanced into the CBD, and several attempts were made to capture the filling defects, unsuccessfully. There was self-limited bleeding. A 10 Indonesian/ 7 cm Cotton-Ramos straight stent was then inserted. The patient was extubated in the fluoroscopy suite, and brought to the recovery room in good condition. Impression: * Large CBD/CHD filling defects, choledocholithiasis (likely) versus polypoid lesions. * Smaller CBD stones, extracted Recommendations: * Begin clear liquids at 7 PM * Check CBC and liver enzymes in the morning * Begin Cipro 500 mg by mouth twice a day * Call GI immediately with pain, fever, melena, hypotension/tachycardia. * The patient will require a follow-up ERCP with stent removal, and probable cholangioscopy (and possible electrohydraulic lithotripsy). CC: Fredy WELCH,Kyree Decker
[2018-07-13 16:21] VITALS: BP 128/62
[2018-07-13 22:52] VITALS: BP 102/58
[2018-07-14 06:30] VITALS: BP 136/58
[2018-07-14 07:53] LABS: ABSOLUTE BASOPHIL COUNT 0 /CUMM (0.0-0.2); ABSOLUTE EOSINOPHIL COUNT 0.4 /CUMM (0.0-0.7); ABSOLUTE GRANULOCYTE CT 5.7 /CUMM (1.4-6.5); ABSOLUTE LYMPH COUNT 0.9 /CUMM (1.2-3.4); ABSOLUTE MONOCYTE COUNT 0.5 /CUMM (0.10-0.60); BASOPHIL % 0.4 % (0.0-2.0); EOSINOPHIL % 4.8 % (0-5); GRANULOCYTE % 75.7 % (42.2-75.2); HEMATOCRIT 34.1 % (42-52); MEAN CORPUSCULAR HGB 32.9 PG (27.0-31.0); MEAN CORPUSCULAR VOLUME 99.6 FL (80.0-94.0); MEAN PLATELET VOLUME 8.2 FL (7.4-10.4); PLATELET COUNT 184 /CUMM (130-400); RBC DISTRIBUTION WIDTH 14.5 % (11.5-14.5); RED BLOOD CELL CT 3.43 /CUMM (4.70-6.10); WHITE BLOOD CELL COUNT 7.6 /CUMM (4.8-10.8)
--- NOTE | 2018-07-14 07:56 | PN- Housestaff ---
Marylin WELCH,Kalani 07/14/18 0755: Subjective Follow-up For: Choledocholithiasis Acute kidney injury BPH Diabetes Tele-Events Since Last Visit: Normal sinus rhythm Subjective: Patient was seen and examined, no overnight events, afebrile with normal vital signs, had ERCP yesterday was started on clear liquid will advance his diet to full liquids this morning, denies any complaints Review of Systems Constitutional: Reports: see HPI. Objective Last 24 Hrs of Vital Signs/I&O Vital Signs Date Time Temp Pulse Resp B/P B/P Pulse O2 O2 Flow FiO2 Mean Ox Delivery Rate 07/14 0811 68 120/54 07/14 0811 68 120/54 07/14 0630 97.9 73 18 136/58 93 Room Air 07/13 2252 97.6 62 16 102/58 94 Room Air 07/13 1621 96.5 67 14 128/62 93 Room Air Intake & Output 07/14 1600 07/14 0800 07/14 0000 Intake Total 960 120 280 Output Total 600 Balance 960 -480 280 Intake, IV 0 Intake, Oral 960 120 280 Number 0 Bowel Movements Output, Urine 600 Patient 192 lb Weight Physical Exam General Appearance: Alert, Oriented X3, Cooperative, No Acute Distress HEENT: Atraumatic, PERRLA, EOMI, Mucous Membr. moist/pink Neck: Supple, No JVD Cardiovascular: Regular Rate, Normal S1, Normal S2 Lungs: Clear to Auscultation Abdomen: Normal Bowel Sounds, Soft, No Tenderness Neurological: Normal Speech, Strength at 5/5 X4 Ext, Normal Tone, Sensation Intact Extremities: No Clubbing, No Cyanosis, No Edema Assessment/Plan Assessment: Patient is an 82-year-old male presented with a chief complaints of abdominal pain, sent by the urgent care for evaluation. Past medical history- * History of SVT 2007, converted to normal sinus rhythm by Dr. Jaime; currently on flecainide and metoprolol and following Dr Perry * Right bundle branch block * Hypertension * Hyperlipidemia * Type 2 diabetes * GERD * History of polyps * History of diverticulosis * History of GI bleed Assessment and plan 1. Cholelithiasis without CBD stone patient had ERCP yesterday with removal of small stone however there is a still radiopaque shadow possibly larger stone versus polyp. Patient will need follow-up ERCP as outpatient, and arrangement for him to see in [facility] was made by Dr. Hall 2. BPH-patient is on Flomax and tamsulosin. Puente was removed. Hematuria resolved. 3. Acute kidney injury-secondary due to volume depletion most likely dehydration and STEFANIE inhibitors use. Patient was also on SGLT2 inhibitor which worsen the acute kidney injury. Patient presented with hyperphosphatemia, hyperkalemia. Kidney injury improved. Patient is on sodium bicarb p.o. given his metabolic acidosis secondary due to UTI. Nephrology follow-up appreciated 4. Gout-patient's allopurinol was stopped in view of EVELYN. Since his kidney numbers improved we will restart him on 300 allopurinol daily. 6. SVT-patient was on flecainide which was stopped in view of EVELYN. No telemetry events. W cardiology recommended to keep holding his flecainide for now 6.-Diabetes-patient was on Janumet and Farxiga. Both were stopped in view of acute kidney injury and patient is now on sliding scale insulin. Patient can go home with long-acting insulin or with glipizide and sitagliptin. Patient needs endocrinology follow-up as outpatient. Problem List: 1. Cholelithiasis 2. Type 2 diabetes mellitus Pain Ratin Pain Location: N/A Pain Goal: Remain pain free Pain Plan: Pathway Tomorrow's Labs & Rationales: None Ami Malin 07/14/18 1059: Attending MD Review Statement Attending Statement Attending MD Statement: examined this patient, discuss w/resident/PA/FIRE CREW WORKER, agreed w/resident/PA/FIRE CREW WORKER, reviewed EMR data (avail), discussed with nursing, discussed with case mgmt Attending Assessment/Plan: Acute kidney injury-resolving now with creatinine down to 1.3 today. Could be secondary to worsening BPH as well as the from one of the new diabetic medication that the patient was on. BPH- patient started on finasteride and Flomax. Hyperkalemia and constipation- resolved with kayexelate and pt had good BM. Arrhythmia at admission secondary to flecanide toxicity- seen by cardiology and Flecanide was stopped. Discussed with cardiology. Continue to monitor on telemetry for now. Cardiology consult appreciated. Cont to hold flecanide for now and increase metoprolol. Abdominal pain with ultrasound showing intrahepatic biliary dilation- MRCP was done and showed choledocholithiasis. ERCP yesterday-had sphincterotomy done. LFTs normal. H/o Gout- allopurinol was held at admission. restarted. DM- at discharge will start on and . pt does not want insulin. Plan dc today . dw/ case management and pt at bedside.
[2018-07-14 08:11] VITALS: BP 120/54
--- NOTE | 2018-07-14 09:56 | PN- Nephrology ---
Assessment/Plan Nephrology Assessment: EVELYN recovered. Probably from some combinatio of obstruction, volume depletion fro SGLT2 inhibitor with RAAS inhibition. Suggestion: At least for now would leave off SGLT2 inhibitor. Will see prn. Subjective Subjective: Patient feeling well today, s/p ERCP yesterday. Objective Vital Signs and I&Os Vital Signs Date Time Temp Pulse Resp B/P B/P Pulse O2 O2 Flow FiO2 Mean Ox Delivery Rate 07/14 0811 68 120/54 07/14 0811 68 120/54 07/14 0630 97.9 73 18 136/58 93 Room Air 07/13 2252 97.6 62 16 102/58 94 Room Air 07/13 1621 96.5 67 14 128/62 93 Room Air 07/13 1225 98.3 97 18 142/60 95 Room Air Intake & Output 07/14 1600 07/14 0400 07/13 1600 07/13 0400 07/12 1600 07/12 0400 Intake Total 120 280 0 240 50 Output Total 600 800 450 150 Balance -480 280 0 -560 -450 -100 Intake, Oral 120 280 0 240 50 Number 0 0 Bowel Movements Output, Urine 600 800 450 150 Patient 192 lb 190 lb 190 lb Weight Physical Exam: NAD VS as above. Lungs: clear CV: no rub Abd: nontender Exts: no edema Neuro A&O, no asterixis. Current Medications: Current Medications Sig/Renu Start time Last Medication Dose Route Stop Time Status Admin Allopurinol 300 MG DAILY 07/12 1034 AC 07/14 PO 0809 Aspirin Buffered 81 MG DAILY 07/084 AC 07/14 PO 0808 Benzonatate 100 MG TID PRN 07/13 2215 AC PO Ciprofloxacin 500 MG 0600,1800 07/13 1800 AC 07/14 PO 07/17 1759 0625 Cyanocobalamin 1,000 MCG DAILY 07/14 1000 AC IM Cyanocobalamin 1,000 MCG Q30D 07/10 1200 DC 07/10 IM 1302 Fentanyl Citrate 0 .STK-MED ONE 07/13 1251 DC .ROUTE Finasteride 5 MG DAILY 07/10 0900 AC 07/14 PO 0808 Glucagon 1 MG .STK-MED ONE 07/13 1517 DC IV 07/13 1518 Glucagon 0 .STK-MED ONE 07/13 1340 DC .ROUTE Indomethacin 50 MG .STK-MED ONE 07/13 1453 DC MA 07/13 1454 Insulin Aspart 0 TIDAC 07/11 1200 AC 07/14 SC 0809 Iopamidol 1 ML .STK-MED ONE 07/13 1455 DC IV 07/13 1456 Ketamine HCl 0 .STK-MED ONE 07/13 1305 DC .ROUTE Lidocaine 2 JARRED .STK-MED ONE 07/13 1453 DC TOP 07/13 1454 Metoclopramide HCl 5 MG Q12P PRN 07/08 2115 AC IV Metoprolol Succinate 75 MG DAILY 07/14 0900 AC 07/14 PO 0811 Metoprolol Succinate 50 MG DAILY 07/08 2023 DC 07/12 PO 0847 Omeprazole 20 MG DAILY AC 07/11 0837 AC 07/14 PO 0625 Patient Medication 1 ED ONE ONE 07/14 0930 DC Teaching ED 07/14 0931 Polyethylene Glycol 17 GM DAILY 07/10 1747 AC 07/14 PO 0808 Senna/Docusate Sodium 2 TAB DAILY PRN 07/10 1800 AC 07/12 PO 0849 Sodium Bicarbonate 650 MG BID 07/08 2100 AC 07/14 PO 0809 Tamsulosin HCl 0.4 MG DAILY 07/10 0900 AC 07/14 PO 0811 Results Pertinent Lab Results: Laboratory Tests 07/14 07/13 0605 0630 Chemistry Sodium (137 - 145 mmol/L) 138 140 Potassium (3.5 - 5.1 mmol/L) 4.2 4.4 Chloride (98 - 107 mmol/L) 108 H 112 H Carbon Dioxide (22 - 30 mmol/L) 24 22 Anion Gap (5 - 16) 7 6 BUN (9 - 20 mg/dL) 22 H 27 H Creatinine (0.7 - 1.2 mg/dL) 1.3 H 1.5 H Estimated GFR (>60 ml/min) 53 L 45 L BUN/Creatinine Ratio (7 - 25 %) 16.9 18.0 Magnesium (1.6 - 2.3 mg/dL) 1.7 Total Bilirubin (0.2 - 1.3 mg/dL) 0.4 Direct Bilirubin (< 0.4 mg/dL) 0.1 AST (17 - 59 U/L) 27 ALT (21 - 72 U/L) 32 Alkaline Phosphatase (< 127 U/L) 59 Total Protein (6.3 - 8.2 g/dL) 5.7 L Albumin (3.5 - 5.0 g/dL) 3.0 L Hematology CBC w Diff NO MAN DIFF REQ NO MAN DIFF REQ WBC (4.8 - 10.8 /CUMM) 7.6 7.8 RBC (4.70 - 6.10 /CUMM) 3.43 L 3.31 L Hgb (14.0 - 18.0 G/DL) 11.3 L 11.1 L Hct (42 - 52 %) 34.1 L 32.5 L MCV (80.0 - 94.0 FL) 99.6 H 98.1 H MCH (27.0 - 31.0 PG) 32.9 H 33.4 H MCHC (33.0 - 37.0 G/DL) 33.0 34.0 RDW (11.5 - 14.5 %) 14.5 15.3 H Plt Count (130 - 400 /CUMM) 184 170 MPV (7.4 - 10.4 FL) 8.2 8.2 Gran % (42.2 - 75.2 %) 75.7 H 77.0 H Lymphocytes % (20.5 - 51.1 %) 12.5 L 14.2 L Monocytes % (1.7 - 9.3 %) 6.6 4.1 Eosinophils % (0 - 5 %) 4.8 4.4 Basophils % (0.0 - 2.0 %) 0.4 0.3 Absolute Granulocytes (1.4 - 6.5 /CUMM) 5.7 6.0 Absolute Lymphocytes (1.2 - 3.4 /CUMM) 0.9 L 1.1 L Absolute Monocytes (0.10 - 0.60 /CUMM) 0.5 0.3 Absolute Eosinophils (0.0 - 0.7 /CUMM) 0.4 0.3 Absolute Basophils (0.0 - 0.2 /CUMM) 0 0 08/29 0615 Chemistry Sodium (137 - 145 mmol/L) 142 Potassium (3.5 - 5.1 mmol/L) 4.6 Chloride (98 - 107 mmol/L) 116 H Carbon Dioxide (22 - 30 mmol/L) 18 L Anion Gap (5 - 16) 9 BUN (9 - 20 mg/dL) 35 H Creatinine (0.7 - 1.2 mg/dL) 1.6 H Estimated GFR (>60 ml/min) 41 L BUN/Creatinine Ratio (7 - 25 %) 21.9 Magnesium (1.6 - 2.3 mg/dL) 1.7 Hematology CBC w Diff NO MAN DIFF REQ WBC (4.8 - 10.8 /CUMM) 6.6 RBC (4.70 - 6.10 /CUMM) 3.31 L Hgb (14.0 - 18.0 G/DL) 11.1 L Hct (42 - 52 %) 32.6 L MCV (80.0 - 94.0 FL) 98.6 H MCH (27.0 - 31.0 PG) 33.6 H MCHC (33.0 - 37.0 G/DL) 34.1 RDW (11.5 - 14.5 %) 14.9 H Plt Count (130 - 400 /CUMM) 176 MPV (7.4 - 10.4 FL) 8.6 Gran % (42.2 - 75.2 %) 69.5 Lymphocytes % (20.5 - 51.1 %) 20.4 L Monocytes % (1.7 - 9.3 %) 3.9 Eosinophils % (0 - 5 %) 5.8 H Basophils % (0.0 - 2.0 %) 0.4 Absolute Granulocytes (1.4 - 6.5 /CUMM) 4.6 Absolute Lymphocytes (1.2 - 3.4 /CUMM) 1.3 Absolute Monocytes (0.10 - 0.60 /CUMM) 0.3 Absolute Eosinophils (0.0 - 0.7 /CUMM) 0.4 Absolute Basophils (0.0 - 0.2 /CUMM) 0
--- NOTE | 2018-07-14 10:55 | PN- Cardiology ---
Subjective Subjective: Patient feels well this morning. Objective Vital Signs and I&Os Vital Signs Date Time Temp Pulse Resp B/P B/P Pulse O2 O2 Flow FiO2 Mean Ox Delivery Rate 07/14 0811 68 120/54 07/14 0811 68 120/54 07/14 0630 97.9 73 18 136/58 93 Room Air 07/13 2252 97.6 62 16 102/58 94 Room Air 07/13 1621 96.5 67 14 128/62 93 Room Air 07/13 1225 98.3 97 18 142/60 95 Room Air Intake & Output 07/14 1600 07/14 0807/14 0000 07/13 1600 07/13 0807/13 0000 Intake Total 120 280 0 240 Output Total 600 800 Balance -480 280 0 -560 Intake, Oral 120 280 0 240 Number 0 0 Bowel Movements Output, Urine 600 800 Patient 192 lb 190 lb Weight Physical Exam: General: no apparent distress. Alert. Eyes: No obvious scleral icterus. HEENT: No jugular venous distention or abnormal jugular venous pulsations. Cardiovascular: Normal intensity S1/S2. Regular Respiratory: Lungs clear to auscultation bilaterally. Abdomen: no guarding or rebound tenderness. Musculoskeletal: No clubbing or cyanosis noted Skin: warm Neurologic: No gross focal deficits noted. Current Medications: Current Medications Sig/Renu Start time Last Medication Dose Route Stop Time Status Admin Allopurinol 300 MG DAILY 07/12 1034 AC 07/14 PO 0809 Aspirin Buffered 81 MG DAILY 07/08 2024 AC 07/14 PO 0808 Benzonatate 100 MG TID PRN 07/13 2215 AC PO Ciprofloxacin 500 MG 0600,1800 07/13 1800 AC 07/14 PO 07/17 1759 0625 Cyanocobalamin 1,000 MCG DAILY 07/14 1000 AC IM Cyanocobalamin 1,000 MCG Q30D 07/10 1200 DC 07/10 IM 1302 Fentanyl Citrate 0 .STK-MED ONE 07/13 1251 DC .ROUTE Finasteride 5 MG DAILY 07/10 0900 AC 07/14 PO 0808 Glucagon 1 MG .STK-MED ONE 07/13 1517 DC IV 07/13 1518 Glucagon 0 .STK-MED ONE 07/13 1340 DC .ROUTE Indomethacin 50 MG .STK-MED ONE 07/13 1453 DC KS 07/13 1454 Insulin Aspart 0 TIDAC 07/11 1200 AC 07/14 SC 0809 Iopamidol 1 ML .STK-MED ONE 07/13 1455 DC IV 07/13 1456 Ketamine HCl 0 .STK-MED ONE 07/13 1305 DC .ROUTE Lidocaine 2 JARRED .STK-MED ONE 07/13 1453 DC TOP 07/13 1454 Metoclopramide HCl 5 MG Q12P PRN 07/08 2115 AC IV Metoprolol Succinate 75 MG DAILY 07/14 0900 AC 07/14 PO 0811 Metoprolol Succinate 50 MG DAILY 07/08 202 DC 07/12 PO 0847 Omeprazole 20 MG DAILY AC 07/11 0837 AC 07/14 PO 0625 Patient Medication 1 ED ONE ONE 07/14 0930 DC Teaching ED 07/14 0931 Polyethylene Glycol 17 GM DAILY 07/10 1747 AC 07/14 PO 0808 Senna/Docusate Sodium 2 TAB DAILY PRN 07/10 1800 AC 07/12 PO 0849 Sodium Bicarbonate 650 MG BID 07/08 2100 AC 07/14 PO 0809 Tamsulosin HCl 0.4 MG DAILY 07/10 0900 AC 07/14 PO 0811 Results Last 48 Hrs of Labs/Mics: Laboratory Tests 07/14/18 0605: Anion Gap 7, Estimated GFR 53 L, BUN/Creatinine Ratio 16.9, Total Bilirubin 0.4 , Direct Bilirubin 0.1, AST 27, ALT 32, Alkaline Phosphatase 59, Total Protein 5.7 L, Albumin 3.0 L, CBC w Diff NO MAN DIFF REQ, RBC 3.43 L, MCV 99.6 H, MCH 32.9 H, MCHC 33.0, RDW 14.5, MPV 8.2, Gran % 75.7 H, Lymphocytes % 12.5 L , Monocytes % 6.6, Eosinophils % 4.8, Basophils % 0.4, Absolute Granulocytes 5.7 , Absolute Lymphocytes 0.9 L, Absolute Monocytes 0.5, Absolute Eosinophils 0.4, Absolute Basophils 0 07/13/18 06: Anion Gap 6, Estimated GFR 45 L, BUN/Creatinine Ratio 18.0, Magnesium 1.7, CBC w Diff NO MAN DIFF REQ, RBC 3.31 L, MCV 98.1 H, MCH 33.4 H, MCHC 34.0, RDW 15.3 H, MPV 8.2, Gran % 77.0 H, Lymphocytes % 14.2 L, Monocytes % 4.1, Eosinophils % 4.4, Basophils % 0.3, Absolute Granulocytes 6.0, Absolute Lymphocytes 1.1 L, Absolute Monocytes 0.3, Absolute Eosinophils 0.3, Absolute Basophils 0 Recent Imaging Studies: Telemetry tracings were personally reviewed and shows sinus rhythm Assessment/Plan Assessment/Plan 1. History of paroxysmal SVT on outpatient flecainide 2. History of aortic regurgitation 3. Acute kidney injury with hyperkalemia, improving; likely due to volume depletion 4. History of right bundle branch block 5. ? Transient AIVR in the setting of flecainide use with acute kidney injury 6. Choledocholithiasis Patient is doing well and is tolerating the increased metoprolol dose. As no evidence of recurrent SVT with the metoprolol can hold off on restarting flecainide and can readdress the potential need for this medication in the future as an outpatient. His creatinine continues to trend down. Bryan Donahue MD FAC Continue telemetry? No
[2018-07-14] MEDS ORDERED: CIPRO500 M1 PO ×2 (12:15→13:30)
[2018-07-14] MEDS ORDERED: TOPROL XL50 M1 PO ×2 (12:15→14:32)
[2018-07-14] MEDS ORDERED: MIRALAX119 GM PO ×2 (12:16→14:32)
[2018-07-14] MEDS ORDERED: OMEPRAZOLE20 M2 PO ×2 (12:16→14:32)
[2018-07-14] MEDS ORDERED: FINASTERIDE5 M1 PO ×2 (12:16→14:32)
[2018-07-14] MEDS ORDERED: CYANOCOBAL1000 MCG/2 IM ×2 (12:16→13:30)
[2018-07-14] MEDS ORDERED: SENNA PLUS TAB1 EACH PO ×2 (12:16→14:32)
--- NOTE | 2018-07-14 12:20 | Patient Discharge Instructions ---
Discharge Instructions General Discharge Information You were seen/treated for: Cholelithiasis Acute kidney injury Diabetes Special Instructions: 1please follow-up with your PCP in 1 week of discharge 2please follow-up with post commander in 1 week of discharge 3please get your kidney functions checked in 1 week of discharge and report the results to your primary care doctor Diet Continue normal diet: No Recommended Diet: Diabetic Acute Coronary Syndrome Inclusion Criteria At DC or during hospital stay patient has or had the following: ACS DIAGNOSIS No Discharge Core Measures Meds if any: Prescribed or Continued at Discharge Meds if any: NOT Prescribed or Continued at Discharge Congestive Heart Failure Inclusion Criteria At DC or during hospital stay patient has or had the following: CHF DIAGNOSIS No Discharge Core Measures Meds if any: Prescribed or Continued at Discharge Meds if any: NOT Prescribed or Continued at Discharge Cerebrovascular accident Inclusion Criteria At DC or during hospital stay patient has or had the following: CVA/TIA Diagnosis No Discharge Core Measures Meds if any: Prescribed or Continued at Discharge Meds if any: NOT Prescribed or Continued at Discharge Venous thromboembolism Inclusion Criteria VTE Diagnosis No VTE Type NONE VTE Confirmed by (Test) NONE Discharge Core Measures - Per Current guidelines, there needs to be overlap - treatment for the first 5 days of Warfarin therapy. - If discharged on Warfarin prior to 5 days of - overlap therapy, the patient will need to be - assessed for post discharge needs including - *Post discharge parental anticoagulation - *Warfarin and/or parental anticoagulation education - *Follow up date to check INR post discharge At least 5 days overlap therapy as Inpatient No Meds if any: Prescribed or Continued at Discharge Note: Overlap Therapy is Warfarin and Anticoagulant Meds if any: NOT Prescribed or Continued at Discharge
--- NOTE | 2018-07-14 12:58 | PN- Gastroenterology ---
Assessment/Plan GI Assessment/Recommendations: Choledocholithiasis, status post ERCP (sphincterotomy/stent). Doing well post procedure. The patient may be on a regular diet, and may be discharged. The case was discussed with Dr. Mohan at [facility]. He will arrange for follow-up. Subjective Subjective: The patient feels well. No nausea, pain, fever, melena. Objective Vital Signs and I&Os Vital Signs Date Time Temp Pulse Resp B/P B/P Pulse O2 O2 Flow FiO2 Mean Ox Delivery Rate 07/14 0811 68 120/54 07/14 0811 68 120/54 07/14 0630 97.9 73 18 136/58 93 Room Air 07/13 2252 97.6 62 16 102/58 94 Room Air 07/13 1621 96.5 67 14 128/62 93 Room Air Intake & Output 07/14 1600 07/14 0400 07/13 1600 07/13 0400 07/12 1600 07/12 0400 Intake Total 120 280 0 240 50 Output Total 600 800 450 150 Balance -480 280 0 -560 -450 -100 Intake, Oral 120 280 0 240 50 Number 0 0 Bowel Movements Output, Urine 600 800 450 150 Patient 192 lb 190 lb 190 lb Weight Physical Exam: Alert and oriented. Sclera anicteric. Abdomen soft, nontender. Current Medications: Current Medications Sig/Renu Start time Last Medication Dose Route Stop Time Status Admin Allopurinol 300 MG DAILY 07/12 1034 AC 07/14 PO 0809 Aspirin Buffered 81 MG DAILY 07/08 2024 AC 07/14 PO 0808 Benzonatate 100 MG TID PRN 07/13 2215 AC PO Ciprofloxacin 500 MG 0600,1800 07/13 1800 AC 07/14 PO 07/17 1759 0625 Cyanocobalamin 1,000 MCG DAILY 07/14 1000 AC 07/14 IM 1212 Cyanocobalamin 1,000 MCG Q30D 07/10 1200 DC 07/10 IM 1302 Finasteride 5 MG DAILY 07/10 0900 AC 07/14 PO 0808 Glucagon 1 MG .STK-MED ONE 07/13 1517 DC IV 07/13 1518 Glucagon 0 .STK-MED ONE 07/13 1340 DC .ROUTE Indomethacin 50 MG .STK-MED ONE 07/13 1453 DC MO 07/13 1454 Insulin Aspart 0 TIDAC 07/11 1200 AC 07/14 SC 1212 Iopamidol 1 ML .STK-MED ONE 07/13 1455 DC IV 07/13 1456 Ketamine HCl 0 .STK-MED ONE 07/13 1305 DC .ROUTE Lidocaine 2 JARRED .STK-MED ONE 07/13 1453 DC TOP 07/13 1454 Metoclopramide HCl 5 MG Q12P PRN 07/08 2115 AC IV Metoprolol Succinate 75 MG DAILY 07/14 0900 AC 07/14 PO 0811 Metoprolol Succinate 50 MG DAILY 07/08 2023 DC 07/12 PO 0847 Omeprazole 20 MG DAILY AC 07/11 0837 AC 07/14 PO 0625 Patient Medication 1 ED ONE ONE 07/14 0930 DC Teaching ED 07/14 0931 Polyethylene Glycol 17 GM DAILY 07/10 1747 AC 07/14 PO 0808 Senna/Docusate Sodium 2 TAB DAILY PRN 07/10 1800 AC 07/12 PO 0849 Sodium Bicarbonate 650 MG BID 07/08 2100 AC 07/14 PO 0809 Tamsulosin HCl 0.4 MG DAILY 07/10 0900 AC 07/14 PO 0811 Results Pertinent Lab Results: Laboratory Tests 07/14 07/13 0605 0630 Chemistry Sodium (137 - 145 mmol/L) 138 140 Potassium (3.5 - 5.1 mmol/L) 4.2 4.4 Chloride (98 - 107 mmol/L) 108 H 112 H Carbon Dioxide (22 - 30 mmol/L) 24 22 Anion Gap (5 - 16) 7 6 BUN (9 - 20 mg/dL) 22 H 27 H Creatinine (0.7 - 1.2 mg/dL) 1.3 H 1.5 H Estimated GFR (>60 ml/min) 53 L 45 L BUN/Creatinine Ratio (7 - 25 %) 16.9 18.0 Magnesium (1.6 - 2.3 mg/dL) 1.7 Total Bilirubin (0.2 - 1.3 mg/dL) 0.4 Direct Bilirubin (< 0.4 mg/dL) 0.1 AST (17 - 59 U/L) 27 ALT (21 - 72 U/L) 32 Alkaline Phosphatase (< 127 U/L) 59 Total Protein (6.3 - 8.2 g/dL) 5.7 L Albumin (3.5 - 5.0 g/dL) 3.0 L Hematology CBC w Diff NO MAN DIFF REQ NO MAN DIFF REQ WBC (4.8 - 10.8 /CUMM) 7.6 7.8 RBC (4.70 - 6.10 /CUMM) 3.43 L 3.31 L Hgb (14.0 - 18.0 G/DL) 11.3 L 11.1 L Hct (42 - 52 %) 34.1 L 32.5 L MCV (80.0 - 94.0 FL) 99.6 H 98.1 H MCH (27.0 - 31.0 PG) 32.9 H 33.4 H MCHC (33.0 - 37.0 G/DL) 33.0 34.0 RDW (11.5 - 14.5 %) 14.5 15.3 H Plt Count (130 - 400 /CUMM) 184 170 MPV (7.4 - 10.4 FL) 8.2 8.2 Gran % (42.2 - 75.2 %) 75.7 H 77.0 H Lymphocytes % (20.5 - 51.1 %) 12.5 L 14.2 L Monocytes % (1.7 - 9.3 %) 6.6 4.1 Eosinophils % (0 - 5 %) 4.8 4.4 Basophils % (0.0 - 2.0 %) 0.4 0.3 Absolute Granulocytes (1.4 - 6.5 /CUMM) 5.7 6.0 Absolute Lymphocytes (1.2 - 3.4 /CUMM) 0.9 L 1.1 L Absolute Monocytes (0.10 - 0.60 /CUMM) 0.5 0.3 Absolute Eosinophils (0.0 - 0.7 /CUMM) 0.4 0.3 Absolute Basophils (0.0 - 0.2 /CUMM) 0 0 08 0615 Chemistry Sodium (137 - 145 mmol/L) 142 Potassium (3.5 - 5.1 mmol/L) 4.6 Chloride (98 - 107 mmol/L) 116 H Carbon Dioxide (22 - 30 mmol/L) 18 L Anion Gap (5 - 16) 9 BUN (9 - 20 mg/dL) 35 H Creatinine (0.7 - 1.2 mg/dL) 1.6 H Estimated GFR (>60 ml/min) 41 L BUN/Creatinine Ratio (7 - 25 %) 21.9 Magnesium (1.6 - 2.3 mg/dL) 1.7 Hematology CBC w Diff NO MAN DIFF REQ WBC (4.8 - 10.8 /CUMM) 6.6 RBC (4.70 - 6.10 /CUMM) 3.31 L Hgb (14.0 - 18.0 G/DL) 11.1 L Hct (42 - 52 %) 32.6 L MCV (80.0 - 94.0 FL) 98.6 H MCH (27.0 - 31.0 PG) 33.6 H MCHC (33.0 - 37.0 G/DL) 34.1 RDW (11.5 - 14.5 %) 14.9 H Plt Count (130 - 400 /CUMM) 176 MPV (7.4 - 10.4 FL) 8.6 Gran % (42.2 - 75.2 %) 69.5 Lymphocytes % (20.5 - 51.1 %) 20.4 L Monocytes % (1.7 - 9.3 %) 3.9 Eosinophils % (0 - 5 %) 5.8 H Basophils % (0.0 - 2.0 %) 0.4 Absolute Granulocytes (1.4 - 6.5 /CUMM) 4.6 Absolute Lymphocytes (1.2 - 3.4 /CUMM) 1.3 Absolute Monocytes (0.10 - 0.60 /CUMM) 0.3 Absolute Eosinophils (0.0 - 0.7 /CUMM) 0.4 Absolute Basophils (0.0 - 0.2 /CUMM) 0
[2018-07-14] MEDS ORDERED: JANUMET 50-1,01 EACH PO ×2 (13:30→16:28)
--- NOTE | 2018-07-14 13:43 | Discharge Summary ---
Visit Information Visit Dates Admission Date: 07/08/18 Discharge Date: 07/14/18 Hospital Course Course Attending Physician: Ami Malin MD Primary Care Physician: Kyree Daniel MD Hospital Course: 82-year-old male presented with a chief complaints of abdominal pain, sent by the urgent care for evaluation. Vital signs at the time of admission-temperature 98.4, pulse 95, respiratory 18, blood pressure 102/60, SPO2 93% on room air. Blood workup showed-hemoglobin 15.4, hematocrit 46.2, MCV 98.2, platelet count 261, granulocyte 82.2, absolute granulocyte 7.9, serum sodium 138, potassium 5.9 , carbon dioxide 12, anion gap 17, BUN 66, creatinine 4.6, GFR 12, glucose 190, lactic acid 2.7, calcium 10.2, magnesium 2.2, AST 26, ALT 20, alkaline phosphatase 87, troponin less than 0.01, albumin 5.3, globulin 3.6, lipase 385, PT/INR-11.4/1.04 Chest x-ray-no acute pulmonary process, mild cardiomegaly. CT abdomen pelvis- 1. Intrauterine extrahepatic biliary dilatation, distended gallbladder, although stones cannot be seen by CT scan, cannot rule out stones or obstructing mass within the CBD or head of the pancreas. 2. Diverticulosis without evidence of diverticulitis. 3. Bilateral renal cysts. Nonspecific mild bilateral perinephric fat stranding' s. ERCP xray: Choledocholithiasis with dilatation of the proximal CBD and intrahepatic ducts. - Fluoroscopic imaging equipment was utilized during performance of ERCP. Past medical history- * History of SVT 2007, converted to normal sinus rhythm by Dr. Jaime; currently on flecainide and metoprolol and following Dr Perry * Right bundle branch block * Hypertension * Hyperlipidemia * Type 2 diabetes * GERD * History of polyps * History of diverticulosis * History of GI bleed Assessment and plan 1. Cholelithiasis without CBD stone patient had ERCP on 07/13/18 with removal of small stone however there is a still radiopaque shadow possibly larger stone versus polyp. He was started on Cipro 500 p.o. twice daily for course of 7 days. patient will need follow-up ERCP as outpatient, and arrangement for him to see in [facility] was made by Dr. Hall 2. BPH-patient is on Flomax and tamsulosin. Puente was removed. Hematuria resolved. 3. Acute kidney injury-secondary due to volume depletion most likely dehydration and STEFANIE inhibitors use. Patient was also on SGLT2 inhibitor which worsen the acute kidney injury. Patient presented with hyperphosphatemia, hyperkalemia. Kidney injury improved. Patient is on sodium bicarb p.o. given his metabolic acidosis secondary due to UTI. Nephrology on board 4. Gout-patient's allopurinol was stopped in view of EVELYN. Since his kidney function improved he was restarted on his home dose of allopurinol 300 6. SVT-patient was on flecainide which was stopped in view of EVELYN. No telemetry events. cardiology recommended to keep holding his flecainide for now 6.-Diabetes-patient was on Janumet and Farxiga. Both were initially stopped in view of acute kidney injury and patient was kept on sliding scale insulin patient was discharged on his home dose of Janumet, Fraxiga was discontinued due to EVELYN as per nephrology recommendation, patient might benefit endocrinology follow-up as outpatient. Allergies: Coded Allergies: NO KNOWN ALLERGIES (07/08/18) Disposition Summary Disposition Principal Diagnosis: Cholelithiasis Additional Diagnosis: Diabetes mellitus Acute kidney injury Discharge Disposition: home or self care Discharge Instructions General Discharge Information Code Status: Do Not Resucitate/Intubat Patient's Diet: Consistent carbohydrate Patient's Activity: As tolerated Follow-Up Instructions/Appts: 1please follow-up with your PCP in 1 week of discharge 2please follow-up with pneudraulic systems mechanic in 1 week of discharge 3please get your kidney functions checked in 1 week of discharge and report the results to your primary care doctor Medications at Discharge Discharge Medications: Stop taking the following medications: Flecainide Acetate (Flecainide Acetate) 100 MG TABLET ORAL TWICE DAILY Qty = 180 Dapagliflozin Propanediol (Farxiga) 5 MG TABLET ORAL DAILY Qty = 90 Lisinopril (Lisinopril) 20 MG TABLET ORAL DAILY Qty = 90 Metoprolol Succinate (Metoprolol Succinate) 50 MG TAB.ER.24H ORAL DAILY Qty = 90 Continue taking these medications: Ezetimibe/Simvastatin (Vytorin 10-20 MG Tablet) 10 MG-20 MG TABLET 1 Tablet ORAL DAILY Qty = 90 Comments: NOT TAKEN WHILE IN HOSPITAL Allopurinol (Allopurinol) 300 MG TABLET 1 Tablet ORAL DAILY Qty = 90 Comments: Last Taken: 07/14/18 Time: 0800 AM Aspirin (Ecotrin*) 81 MG TABLET. 1 Tablet ORAL DAILY Comments: Last Taken: 07/14/18 Time: 0800 AM Start taking the following new medications: Ciprofloxacin HCl (Cipro) 500 MG TABLET 500 Milligram ORAL 0600,1800 Qty = 12 No Refills Comments: Last Taken: 07/14/18 Time: 0630 AM Cyanocobalamin (Vitamin B-12) (Cyanocobalamin Injection) 1,000 MCG/ML VIAL 1,000 Microgram INTRAMUSC Once a Week Qty = 7 No Refills Comments: Last Taken: 07/14/18 Time: 1200 PM Metoprolol Succ XL (Toprol Xl) 50 MG TAB 75 Milligram ORAL DAILY Qty = 30 No Refills Instructions: . Comments: Last Taken: 07/14/18 Time: 0800 AM Polyethylene Glycol 3350 (Miralax) 17 GRAM/DOSE POWDER 17 Gram ORAL DAILY as needed for CONSTIPATION Qty = 30 No Refills Instructions: . Comments: Last Taken: 07/14/18 Time: 0800 AM Sennosides/Docusate Sodium (Senna Plus Tablet) 8.6 MG-50 MG TABLET 2 Tablet ORAL DAILY as needed for CONSTIPATION Qty = 30 No Refills Instructions: . Comments: Last Taken: 07/12/18 Time: 0900 AM Omeprazole (Omeprazole) 20 MG CAPSULE. 20 Milligram ORAL DAILY BEFORE BREAKFAST Qty = 30 No Refills Instructions: . Comments: Last Taken: 07/14/18 Time: 0630 AM Finasteride (Finasteride) 5 MG TABLET 5 Milligram ORAL DAILY Qty = 30 No Refills Instructions: . Comments: Last Taken: 07/14/18 Time: 0800 AM Metformin HCl (Metformin HCl ER) 1,000 MG TAB.ER.24 1 Tablet ORAL TWICE DAILY Qty = 60 No Refills Comments: NOT GIVEN WHILE IN HOSPITAL Copies To: Kyree Daniel MD Copies To: Kyree Daniel MD
[2018-07-14] MEDS ORDERED: JANUVIA50 M1 PO (14:05)
[2018-07-14] MEDS ORDERED: METFORMIN HCL1000 M2 PO (16:35)
== END 2018-07-14 17:25 | DRG 683 ==
LOC: ERH 14:27 → 1NO 17:27 → ERHI 17:27 → ENTRNSPT 19:50 → EDTRNSPT 20:02 → EDTRNSPTSTS 20:02 → 1NO 20:10 → CMPTRNSPT 20:32 → 1NO 07-10 22:34
PROVIDERS: Hospitalist; Internal Medicine Adolescent Medicine; Physician Assistant; Student in an Organized Health Care Education/Training Program
PROC: 0FC98ZZ Extirpation of Matter from Common Bile Duct, Via Natural or Artificial Opening Endoscopic (ICD-10-PCS; principal; 2018-07-13)
PROC: 0F798DZ Dilation of Common Bile Duct with Intraluminal Device, Via Natural or Artificial Opening Endoscopic (ICD-10-PCS; 2018-07-13)
DX: N17.9 Acute kidney failure, unspecified (principal); E87.2 Acidosis; I47.1 Supraventricular tachycardia; K82.1 Hydrops of gallbladder; E87.5 Hyperkalemia; E86.0 Dehydration; E11.22 Type 2 diabetes mellitus with diabetic chronic kidney disease; R31.0 Gross hematuria; K80.50 Calculus of bile duct without cholangitis or cholecystitis without obstruction; I45.10 Unspecified right bundle-branch block; M10.9 Gout, unspecified; Z66 Do not resuscitate; E78.5 Hyperlipidemia, unspecified; N18.3 Chronic kidney disease, stage 3 (moderate); I49.9 Cardiac arrhythmia, unspecified; T38.3X5A Adverse effect of insulin and oral hypoglycemic [antidiabetic] drugs, initial encounter; I12.9 Hypertensive chronic kidney disease with stage 1 through stage 4 chronic kidney disease, or unspecified chronic kidney disease; K21.9 Gastro-esophageal reflux disease without esophagitis; T46.2X5A Adverse effect of other antidysrhythmic drugs, initial encounter; N40.1 Benign prostatic hyperplasia with lower urinary tract symptoms; R33.8 Other retention of urine; Z79.84 Long term (current) use of oral hypoglycemic drugs; Z86.010 Personal history of colon polyps
CPT/HCPCS: 1NP; 74181; 84133; 84300; 36415; 36592; 71045; 74176; 81001; 82436; 82570; 87086; 93005; 93010; 96374; 96375; 99291; J0610; J1610; J1644; J1815; J2405; J2765; J3420; J3490; J7042; Q9967